=== PATIENT | male | born 1955 | race Caucasian/White ===

== ENCOUNTER → 2019-03-20 | Outpatient (CLI) | payer BC ==
[2019-03-20 11:22] LABS: HCT 45.7 % (39.0-53.0); MCH 30.5 pg (25.0-35.0); MCHC 32.9 g/dL (31.0-37.0); MCV 92.5 fL (80.0-100.0); Mean Platelet Volume 7.7; Platelet Count 240 k/uL (150-450); RBC 4.94 m/uL (4.30-5.90); RDW 15.1 % (11.5-15.5); WBC 5.8 k/uL (3.8-10.6)
[2019-03-20 11:27] LABS: INR 0.9 (<1.2); Partial Thromboplastin Time 26.4 sec (22.0-30.0); Prothrombin Time 10.2 sec (9.0-12.0)
[2019-03-20 16:32] LABS: Anion Gap 6.3 mmol/L (4.00-12.00); Carbon Dioxide 24.7 mmol/L (21.6-31.8); Potassium 4.4 mmol/L (3.5-5.5)
== END | disposition home or self-care (01) ==
LOC: LABWHC1 10:40
PROVIDERS: ATTEND Orthopaedic Surgery Hand Surgery
DX: Z01.812 Encounter for preprocedural laboratory examination (principal)
CPT/HCPCS: 36415; 80051; 82565; 84520; 85027; 85610; 85730; 87070

== ENCOUNTER → 2019-03-24 | Outpatient (CLI) | payer BC ==
[2019-03-24 09:30] LABS: Appearance,Urine Clear (Clear); Bilirubin,Urine Negative (Negative); Blood,Urine Negative (Negative); Color,Urine Yellow; Glucose,Urine (UA) Trace (Negative); Ketones,Urine Negative (Negative); Leukocyte Esterase,Urine Negative (Negative); Nitrite,Urine Negative (Negative); PH, Urine 5.5 (5.0-8.0); Protein,Urine Trace (Negative); Specific Gravity,Urine 1.025 (1.001-1.035); Urobilinogen,Urine <2.0 mg/dL (<2.0)
== END | disposition home or self-care (01) ==
LOC: LABPAT 08:54
PROVIDERS: ATTEND Orthopaedic Surgery
DX: Z01.812 Encounter for preprocedural laboratory examination (principal)
CPT/HCPCS: 36415; 81003; 86850; 86900; 86901

== ENCOUNTER 2019-04-03 07:00 | Inpatient (IN) | payer BC ==
[~2019-04-03 07:00] MED LIST: ACETAMINOPHEN TAB 500 MG TAB PO ONE; DEXAMETHASONE SOD PHOSPHATE 10 MG/ML 1 ML VIAL IV ONE; HYDROmorphone 0.5 MG/0.5 ML SYRINGE IVP PRN; MELOXICAM 7.5 MG TAB PO ONE; MIDAZOLAM 2 MG/2 ML VIAL IV PRN; ONDANSETRON 4 MG/2 ML VIAL IVP ONE; ROPIVACAINE 246.25 MG, EPINEPHrine 0.5 MG, KETOROLAC 30 MG, WATER FOR INJECTION,STERILE... MISCELLANE ONE; SCOPOLAMINE 1.5MG/72HR PATCH TRANSDERM ONE; TRANEXAMIC ACID 1,000 MG in SODIUM CHLORIDE 0.9% 100 ML IVPB ONE; ceFAZolin IN SWFI 2 GM/20 ML SYRINGE IVP ONE
[2019-04-03] MEDS ORDERED: MAGNESIUM HYDROXIDE 2,400 MG/10 ML CUP PO PRN (10:41)
[2019-04-03] MEDS ORDERED: HYDROcodone/APAP 5-325MG 1 EACH TAB PO PRN (10:41)
[2019-04-03] MEDS ORDERED: NALOXONE 0.4 MG/ML 1 ML VIAL IV PRN (10:41)
[2019-04-03] MEDS ORDERED: DIAZEPAM 5 MG TAB PO PRN (10:41)
[2019-04-03] MEDS ORDERED: HYDROmorphone 0.5 MG/0.5 ML SYRINGE IVP PRN ×2 (10:41)
[2019-04-03] MEDS ORDERED: HYDROmorphone 1 MG/ML 1 ML SYRINGE IVP PRN (10:41)
[2019-04-03] MEDS ORDERED: hydrOXYzine PAMOATE 25 MG CAP PO PRN (10:41)
[2019-04-03] MEDS ORDERED: ONDANSETRON 4 MG/2 ML VIAL IVP PRN (10:41)
[2019-04-03] MEDS ORDERED: LIDOCAINE 1% 20 ML VIAL (10MG/ML) FOR IV START INTRADERMA ONE (10:44)
[2019-04-03] MEDS: LACTATED RINGERS 1,000 ML IV SCH ×2 (10:44→11:53)
[2019-04-03] MEDS ORDERED: ceFAZolin 3,000 MG in SODIUM CHLORIDE 0.9% IRRIGATIO 3,000 ML IRRIGATION ONE (11:56)
[2019-04-03] MEDS ORDERED: LACTATED RINGERS 1,000 ML IV ONE (13:19)
--- NOTE | 2019-04-03 14:17 | XR ---
EXAMINATION TYPE: XR Hip Limited LT DATE OF EXAM: 04/03/2019 CLINICAL HISTORY: Left hip pain and osteoarthritis. TECHNIQUE: Single AP portable view of left hip is obtained immediately postoperatively. COMPARISON: None. FINDINGS: Metallic hardware from left hip arthroplasty is seen and appears satisfactory in alignment and position. There is evidence of recent surgery with subcutaneous gas and soft tissue swelling not ed laterally. IMPRESSION: Metallic hardware from left hip arthroplasty is satisfactory in position.
--- NOTE | 2019-04-03 14:17 | XR ---
Limited left hip HISTORY: Anterior hip replacement 2 intraoperative C-arm images document the procedure.
--- NOTE | 2019-04-03 14:18 | FL ---
EXAMINATION TYPE: FL guidance operating room DATE OF EXAM: 04/03/2019 CLINICAL HISTORY: Left hip arthroplasty TECHNIQUE: Fluoroscopy. COMPARISON: None. FINDINGS: Fluoroscopic guidance was provided during procedure performed by Dr. Olivia. A total of 50 to seconds of fluoroscopic time was utilized during the procedure and 0 spot images was acquired. IMPRESSION: As Above.
--- NOTE | 2019-04-03 16:20 | P.OP ---
Date of Procedure: 04/03/19 Preoperative Diagnosis: Severe osteoarthritis left hip Postoperative Diagnosis: Severe osteoarthritis left hip Procedure(s) Performed: Left total hip arthroplasty with a direct anterior approach Implants: Dahl and nephew Polarstem size 4 standard Dahl & Nephew R3, 3 hole acetabular shell, 52 mm Dahl & Nephew reflection 6.5 mm cancellus screw, 20 mm 2 Dahl & Nephew R3, XLPE 20 acetabular liner Dahl & Nephew Oxinium femoral head 36 m, +4 All components were press-fit. The articulation is Oxinium on polyethylene. Anesthesia: spinal Surgeon: Hu Olivia Snorkelling Instructor #1: Vannessa Soto Estimated Blood Loss (ml): 50 Pathology: other (Femoral head) Condition: stable Disposition: PACU Indications for Procedure: After failure of conservative treatment we discussed the surgical and nonsurgical treatment options at length. Patient wishes to proceed with a total hip arthroplasty with a direct anterior approach. Complications specific to this procedure were discussed at length, including but not limited to infection, leg length discrepancy, dislocation, and nerve injury. Patient is aware of all these complications and informed consent was obtained Operative Findings: The operative findings are consistent with severe osteoarthritis left hip Description of Procedure: Patient was seen and evaluated in the preoperative area, consent was reviewed, and the surgical site was marked with a skin marker. Patient was then brought to the operating room and given prophylactic antibiotics intravenously. 1 g of Tranexamic acid was also given. A spinal anesthetic was administered by the anesthesia department. The patient was then placed on the Frontier table with the bony prominences well-padded. The hip area was then prepped and draped in usual sterile fashion. A universal timeout was then performed, which confirmed the patient's name, surgical site, ALLERGIES, and procedure being performed. Next the incision site was located at 1 cm distal and 1 cm lateral to the anterior superior iliac spine. The skin and subcutaneous tissues were sharply incised. Incision was carefully dissected down to the fascia overlying the tensor fascia jessica muscle. This fascia was then incised in line with the incision. Next, using blunt finger dissection, the tensor fascia jessica muscle was dissected off its investing fascia. The muscle was then carefully retracted laterally with a cobra retractor over the lateral neck of the femur. Next, the circumflex vessels were identified and cauterized using the AquaMantis device. The anterior hip capsule was then exposed. The capsule was then opened and an inverted T fashion. Cobra retractors were then placed intracapsularly. The proximal femur was then visualized. The femoral neck was then osteotomized appropriate level above the lesser trochanter. Small amount of traction was placed with the Frontier table. A small wedge of bone was then removed from the remaining femoral head. Next, using a corkscrew femoral head was easily removed from the acetabulum. On gross visual inspection, the femoral head had complete loss of articular cartilage in multiple periarticular osteophytes. Attention was then turned to the acetabulum. the acetabulum was exposed and any remaining labrum was excised. Sequential reaming of the acetabulum was performed using fluoroscopic guidance. When the appropriate size was reached, a trial was then placed. The position and fit of the trial was checked with fluoroscopy. The trial was then removed. Then, using fluoroscopic guidance, the final implant was impacted at 20 of anteversion and 40 of abduction, and fully seated in the acetabulum. 2 screws were then placed in the acetabulum. Again fluoroscopy was used to check position of the screws. Next, the liner was then impacted, with a 20 elevated liner located in the anterior superior quadrant. Component locking was confirmed. Attention was then directed to the femur. With the aid of the Frontier table, the femur was externally rotated to approximately 130, extended, and abducted under the opposite leg. A side hook was then placed under the proximal femur, and the side hook elevator was used to elevate the proximal femur. Retractors were then placed. A capsular release was performed, as well as a release of the conjoined tendon, which afforded excellent visualization of the proximal femur. Next, a box osteotome was used to lateralize the proximal femur. A hazard waste handler was then used to locate the femoral canal. Sequential broaching was then performed with appropriate size which afforded excellent fixation in the proximal femur. A trial was then placed with appropriate head and neck, and the hip was gently reduced with the aid of the Frontier table. Fluoroscopy was then used to check position of the components, as well as to ensure equal leg lengths. The hip was then gently dislocated and the trials were then removed. Final implants were then impacted and the hip was again reduced. Final fluoroscopic x-rays confirmed that the components were in anatomic position, as well as equal leg lengths. The hip was also taken through range of motion, and found to be stable. The hip was then copiously irrigated with antibiotic solution with pulsatile lavage. The hip was then irrigated with Irrisept solution. The soft tissues were then injected with a ropivacaine solution, which consisted of 246.25 mg of ropivacaine, 0.5 mg of epinephrine, 30 mg of Toradol, 80 g of clonidine, and 48.45 mL of sterile water, for a total of 100 mL of fluid injected. A second dose of 1 g of Tranexamic acid was also given. the fascia was then closed with 2-0 strata fix suture. The subcutaneous tissue was closed with 3-0 Vicryl. The subcuticular tissue was closed with 3-0 strata fix suture. The skin was then closed with Dermabond glue and a sterile silver dressing. The patient was then transferred to the recovery room in stable condition. The research assistant professor CHER Carr was required due to the complexity of surgery, and the need for skilled surgical instrument mechanic for positioning, draping, exposure, retraction, and closure of the wound.
[2019-04-03 17:10] VITALS: BMI 35.2
[2019-04-03] MEDS: SODIUM CHLORIDE 0.9% 1,000 ML IV SCH (17:59)
[2019-04-03] MEDS ORDERED: SENNOSIDES-DOCUSATE SODIUM 1 EACH TAB PO SCH (21:00)
[2019-04-03] MEDS: HYDROcodone/APAP 5-325MG 1 EACH TAB PO PRN (22:17)
[2019-04-03] MEDS: ceFAZolin IN SWFI 2 GM/20 ML SYRINGE IVP SCH (23:18)
[2019-04-03] MEDS: ASPIRIN 325 MG TAB PO SCH (23:18)
[2019-04-04] MEDS: SODIUM CHLORIDE 0.9% 1,000 ML IV SCH (02:00)
[2019-04-04 02:02] VITALS: RESP 18
[2019-04-04] MEDS: ceFAZolin IN SWFI 2 GM/20 ML SYRINGE IVP SCH (05:18)
[2019-04-04] MEDS: HYDROcodone/APAP 5-325MG 1 EACH TAB PO PRN (05:18)
[2019-04-04 07:09] LABS: Basophils % (A) 0 %; Eosinophils # (A) 0.1 k/uL (0-0.7); Eosinophils % (A) 1 %; HCT 41.1 % (39.0-53.0); HGB 13.3 gm/dL (13.0-17.5); Lymphocytes # (A) 1.1 k/uL (1.0-4.8); Lymphocytes % (A) 13 %; MCH 29.9 pg (25.0-35.0); MCHC 32.3 g/dL (31.0-37.0); MCV 92.5 fL (80.0-100.0); Mean Platelet Volume 7.6; Monocytes # (A) 0.7 k/uL (0-1.0); Monocytes % (A) 9 %; Neutrophils # (A) 6.4 k/uL (1.3-7.7); Neutrophils % (A) 77 %; Platelet Count 197 k/uL (150-450); RBC 4.44 m/uL (4.30-5.90); RDW 15.1 % (11.5-15.5); WBC 8.4 k/uL (3.8-10.6)
[2019-04-04] MEDS ORDERED: PANTOPRAZOLE 40 MG TABLET PO SCH (07:30)
[2019-04-04] MEDS: LACTATED RINGERS 1,000 ML IV SCH (07:36)
[2019-04-04] MEDS: ASPIRIN 325 MG TAB PO SCH (07:46)
--- NOTE | 2019-04-04 07:48 | CONS ---
CONSULTATION DATE OF SERVICE: 04/03/2019 REASON FOR CONSULTATION: Advice regarding hyperlipidemia and other medical issues requested by Dr. Olivia. HISTORY OF PRESENT ILLNESS: This 63-year-old gentleman with the past medical history of hyperlipidemia, history of DJD, history varicose veins, anxiety being followed by Dr. Richter in the outpatient setting underwent left total hip arthroplasty by Dr. Olivia. The patient tolerated the procedure well and there is no history of chest pain, history of palpitation, headache, loss of consciousness, seizures. No history of diarrhea, fever, rigors, chills at this time. PAST MEDICAL HISTORY: History of DJD, history of hyperlipidemia, history of varicose veins, history of anxiety. MEDICATIONS: Home medications are: 1. Pravastatin 40 mg q.h.s. 2. Multivitamins one p.o. daily. ALLERGIES: Allergies are none. FAMILY HISTORY: History of cancer in the family. SOCIAL HISTORY: No history of smoking. No history of alcohol intake. REVIEW OF SYSTEMS: ENT: No diminished hearing or diminished vision. CARDIOVASCULAR SYSTEM: No angina or palpitations. RESPIRATORY SYSTEM: As mentioned earlier. GI: No nausea. : No dysuria. NERVOUS SYSTEM: No numbness or weakness. ALLERGY/IMMUNOLOGY: No history of asthma or hayfever. MUSCULOSKELETAL: As mentioned earlier. HEMATOLOGY/ONCOLOGY: No history of anemia. ENDOCRINE: No history of diabetes or hypothyroidism. CONSTITUTIONAL: As mentioned earlier. DERMATOLOGY: Negative. RHEUMATOLOGY: Negative. PSYCHIATRY: As mentioned earlier. PHYSICAL EXAMINATION: The patient is alert and oriented x3. Pulse is 66, blood pressure 112/70, respiration 20, temperature is 97.2, pulse ox 98% on room air. HEENT: Conjunctivae normal. Oral mucosa moist. NECK: No jugular venous distention. No carotid bruit. No lymph node enlargement. CARDIOVASCULAR: S1, S2 muffled. No S3, no S4. RESPIRATORY: Breath sounds diminished at the bases. No rhonchi, no crackles. ABDOMEN: Soft, nontender. No mass palpable. LEGS: Status post surgery. NERVOUS SYSTEM: Higher functions as mentioned earlier. Moves all 4 limbs. No focal deficits. LYMPHATICS: No lymphadenopathy of the neck, axillae or groin. SKIN: No ulcer, rash or bleeding. JOINTS: No active deforming arthropathy. LABS: Labs are preop labs CBC within normal limits. Creatinine was 1.6. Otherwise normal. UA noted. ASSESSMENT: 1. Status post left total hip joint arthroplasty. 2. Possible chronic kidney disease stage 3, previously. 3. Hyperlipidemia. 4. Degenerative joint disease. 5. Varicose veins. 6. History of motion sickness. 7. History of anxiety. RECOMMENDATIONS AND DISCUSSION: In this 63-year-old gentleman who presented after surgery the patient is medically stable. I would recommend followup labs CBC and BMP in the morning to ensure stability. Otherwise, DVT prophylaxis. Recommended incentive spirometry. We will follow the patient closely with you. The patient may be asked to follow with primary physician closely. Thank you Dr. Olivia for letting us participate in the care of this patient. MMODL / IJN: [id number] /
[2019-04-04 08:18] VITALS: BP 123/79; PULSE 89; TEMP 98.5
[2019-04-04] MEDS ORDERED: MULTIVITAMINS, THERA 1 EACH TAB PO SCH (09:00)
[2019-04-04] MEDS ORDERED: MELOXICAM 7.5 MG TAB PO SCH (09:00)
--- NOTE | 2019-04-04 09:22 | P.DS ---
Providers Date of admission: 04/03/19 10:06 Expected date of discharge: 04/04/19 Attending physician: Hu Olivia Consults: 04/03/19 10:41 Consult Physician Routine Consulting Provider: Glenn Lim Consult Reason/Comments: medical management Do you want consulting provider notified?: Yes Primary care physician: Tito Richter - Discharge Diagnosis(es) (1) Osteoarthritis of left hip Current Visit: Yes Status: Acute (2) Status post total hip replacement, left Current Visit: Yes Status: Acute Hospital Course: This is a 63-year-old male with known history of degenerative arthritis of the left hip. The patient presents for evaluation. After discussion and consideration patient elects to proceed with total hip arthroplasty. The patient is seen preoperatively by Dr. Olivia and medically cleared for surgery by their primary care physician. Patient is admitted to [facility] on 04/03/2019 for total hip arthroplasty. The procedures performed without complication or sequelae. The patient is doing well postoperatively. Labs and vital signs are stable on day of discharge. On day of discharge patient's hip incision is healing well. There is minimal erythema. There is no drainage noted at this time. There is minimal soft tissue swelling to the hip and thigh. Patient has full foot and ankle motion without difficulty or pain. Calf is soft and nontender to palpation. Luis Fernando rovascular status to the left lower extremity is intact. Patient is discharged home in good condition. Opioid start talking form is reviewed and signed at patient bedside. Please see med rec for accurate list of home medications. Plan - Discharge Summary Discharge Rx Participant: Yes New Discharge Prescriptions: New Aspirin 325 mg PO BID #60 tab HYDROcodone/APAP 5-325MG [[place] 5-325] 1 - 2 tab PO Q6HR PRN #56 tab PRN Reason: Pain Sennosides [Senokot] 1 tab PO BID #60 tablet No Action Pravastatin Sodium [Pravachol] 40 mg PO HS Multivitamin [Multivitamins Adult Gummies] 1 tab PO DAILY Discharge Medication List Multivitamin [Multivitamins Adult Gummies] 1 tab PO DAILY 03/29/19 [History] Pravastatin Sodium [Pravachol] 40 mg PO HS 03/29/19 [History] Aspirin 325 mg PO BID #60 tab 04/04/19 [Rx] HYDROcodone/APAP 5-325MG [[place] 5-325] 1 - 2 tab PO Q6HR PRN #56 tab 04/04/19 [Rx] Sennosides [Senokot] 1 tab PO BID #60 tablet 04/04/19 [Rx] Follow up Appointment(s)/Referral(s): Hu Olivia DO [Doctor of Osteopathic Medicine] - 2 Weeks Activity/Diet/Wound Care/Special Instructions: Weightbearing as tolerated with walker. Leave dressing intact. Dressing may be removed by home care nurse or by patient in 10 days. May shower with dressing on. Please follow-up with [facility] in 2 weeks and call with any questions or concerns, . Discharge Disposition: HOME WITH HOME HEALTH SERVICES
[2019-04-04] MEDS ORDERED: PRAVASTATIN SODIUM 40 MG TAB PO SCH (21:00)
== END 2019-04-04 10:41 | disposition home or self-care (01) | DRG 470 ==
LOC: 2ORMAIN 10:06 → 4SSUR 14:20
PROVIDERS: ADMIT Orthopaedic Surgery; ATTEND Orthopaedic Surgery
PROC: 0SRB06A Replacement of Left Hip Joint with Oxidized Zirconium on Polyethylene Synthetic Substitute, Uncemented, Open Approach (ICD-10-PCS; principal; 2019-04-03 11:40)
DX: M16.12 Unilateral primary osteoarthritis, left hip (principal); E78.5 Hyperlipidemia, unspecified; F41.9 Anxiety disorder, unspecified; N18.3 Chronic kidney disease, stage 3 (moderate); I83.90 Asymptomatic varicose veins of unspecified lower extremity; Z80.9 Family history of malignant neoplasm, unspecified
CPT/HCPCS: 36415; 73501; 85025; 86850; 86900; 86901; 88300

== ENCOUNTER → 2020-08-29 | Outpatient (CLI) | payer BC | END | disposition home or self-care (01) | LOC: LABWHC1 12:31 | PROVIDERS: ATTEND Family Medicine | DX: Z20.828 Contact with and (suspected) exposure to other viral communicable diseases (principal) | CPT/HCPCS: U0003; C9803 ==

== ENCOUNTER → 2022-07-02 | Outpatient (CLI) | payer BC ==
[2022-07-02 15:28] LABS: Partial Thromboplastin Time 26.3 sec (22.0-30.0); Prothrombin Time 10.7 sec (9.0-12.0)
[2022-07-02 22:39] LABS: HCT 47.1 % (39.6-50.0); HGB 15.3 g/dL (13.0-17.0); MCH 30.6 pg (27.0-32.0); MCHC 32.5 g/dL (32.0-37.0); MCV 94.2 fL (80.0-97.0); NRBC Per 100 WBC 0 /100 WBCS (0.0-0.0); Platelet Count 259 X 10*3/uL (140-440); RDW 14.4 % (11.5-14.5); WBC 7.87 X 10*3/uL (4.50-10.00)
[2022-07-02 23:30] LABS: Appearance,Urine Turbid (Clear); Bilirubin,Urine Negative (Negative); Blood,Urine Negative (Negative); Color,Urine Yellow (Yellow); Ketones,Urine Negative (Negative); Nitrite,Urine Negative (Negative); Specific Gravity,Urine 1.022 (1.001-1.030); Urobilinogen,Urine 0.2 (0.2,1.0)
[2022-07-02 23:33] LABS: Bacteria,Urine None Seen /HPF (None Seen)
[2022-07-02 23:50] LABS: African American GFR (CKD) 54.5 (60.0-200.0); Albumin 4.8 g/dL (3.8-4.9); Albumin/Globulin Ratio 1.74 (1.60-3.17); Anion Gap 12.2 mmol/L (10.00-18.00); BUN/Creat Ratio 14.64 Ratio (12.00-20.00); Blood Urea Nitrogen 22.4 mg/dL (9.0-27.0); Calcium 9.8 mg/dL (8.7-10.3); Carbon Dioxide 23.7 mmol/L (20.0-27.5); Globulin 2.8 g/dL (1.6-3.3); Potassium 4.2 mmol/L (3.5-5.5); Total Bilirubin 0.5 mg/dL (0.30-1.20); Total Protein 7.5 g/dL (6.2-8.2)
== END | disposition home or self-care (01) ==
LOC: LABPAT 14:04
PROVIDERS: ATTEND Orthopaedic Surgery
DX: Z01.812 Encounter for preprocedural laboratory examination (principal); M16.11 Unilateral primary osteoarthritis, right hip
CPT/HCPCS: 80053; 81001; 85027; 85610; 85730; 87070; 93005

== ENCOUNTER 2022-07-06 08:06 | Day surgery (SDC) | payer BC ==
[2022-07-02 14:43] VITALS: BMI 33.0
[~2022-07-06 08:06] MED LIST changes: -ACETAMINOPHEN TAB 500 MG TAB PO ONE; +ACETAMINOPHEN TAB 500 MG TAB PO PRN; -DEXAMETHASONE SOD PHOSPHATE 10 MG/ML 1 ML VIAL IV ONE; +GABAPENTIN 300 MG CAP PO PRN; +LIDOCAINE 1% (10MG/ML) FOR IV START INTRADERMA PRN; -MELOXICAM 7.5 MG TAB PO ONE; +MELOXICAM 7.5 MG TAB PO PRN; -MIDAZOLAM 2 MG/2 ML VIAL IV PRN; -ROPIVACAINE 246.25 MG, EPINEPHrine 0.5 MG, KETOROLAC 30 MG, WATER FOR INJECTION,STERILE... MISCELLANE ONE; -SCOPOLAMINE 1.5MG/72HR PATCH TRANSDERM ONE; -TRANEXAMIC ACID 1,000 MG in SODIUM CHLORIDE 0.9% 100 ML IVPB ONE; +TRANEXAMIC ACID IN NACL,ISO-OS 1,000 MG in SALINE 1 100ML.BAG IVPB PRN; -ceFAZolin IN SWFI 2 GM/20 ML SYRINGE IVP ONE
[2022-07-06 08:38] LABS: Glucose,Whole Blood 122 mg/dL (70-110)
[2022-07-06] MEDS: LACTATED RINGERS 1,000 ML IV SCH (08:38)
[2022-07-06] MEDS ORDERED: DEXAMETHASONE SOD PHOSPHATE 4 MG/ML 1 ML VIAL IVP ONE (08:42)
[2022-07-06] MEDS ORDERED: TRANEXAMIC ACID IN NACL,ISO-OS 1,000 MG/100 ML BAG ONE (09:04)
[2022-07-06] MEDS ORDERED: PROPOFOL 10 MG/ML 20 ML VIAL IV ONE (09:04)
[2022-07-06] MEDS ORDERED: MIDAZOLAM 2 MG/2 ML VIAL ONE (09:04)
[2022-07-06] MEDS ORDERED: fentaNYL (PF) 50 MCG/ML 2 ML AMP ONE (09:04)
[2022-07-06] MEDS ORDERED: ROPIVACAINE 5 MG/ML 30 ML VIAL MISCELLANE ONE ×2 (10:04→10:19)
--- NOTE | 2022-07-06 10:26 | P.OP ---
Date of Procedure: 07/06/22 Preoperative Diagnosis: Severe osteoarthritis right hip Postoperative Diagnosis: Severe osteoarthritis right hip Procedure(s) Performed: Right total hip arthroplasty with a direct anterior approach Implants: Dahl & Nephew Polarstem standard size 4 Dahl & Nephew R3, 3 hole hemispherical acetabular shell, 54 mm Dahl & Nephew Reflection 6.5 mm cancellus screw, 20 mm 2 Dahl & Nephew R3, XLPE 20 acetabular liner Dahl & Nephew Oxinium femoral head 36 m, +0 All components were press-fit. The articulation is Oxinium on polyethylene. Anesthesia: spinal Surgeon: Hu Olivia Customer Specialist #1: Vannessa Soto Estimated Blood Loss (ml): 350 Pathology: other (Femoral head) Condition: stable Disposition: PACU Indications for Procedure: After failure of conservative treatment we discussed the surgical and nonsurgic al treatment options at length. Patient wishes to proceed with a total hip arthroplasty with a direct anterior approach. Complications specific to this procedure were discussed at length, including but not limited to infection, leg length discrepancy, dislocation, nerve injury, and fracture. Covid-19 was also discussed at length with the patient, and they are aware of the current policies and procedures. The patient was given the option of delaying surgery, but they elect to proceed knowing these risks. Patient is aware of all these complications and informed consent was obtained Operative Findings: The operative findings are consistent with severe osteoarthritis of the right hip Description of Procedure: Patient was seen and evaluated in the preoperative area and the consent was reviewed. The operative site was marked with a skin marker. The patient was then brought to the operating room and given preoperative antibiotics intravenously. 1 g of Tranexamic acid was also given intravenously. A spinal anesthetic was administered by the anesthesia department. The patient was then placed on the Thompson table with the bony prominences well-padded. The hip area was then prepped with a ChloraPrep solution and draped in the usual sterile fashion. A universal timeout was then performed, which confirmed the patient's name, surgical site, ALLERGIES, and procedure being performed on the consent. Next the incision site was located at 1 cm distal and 2 cm lateral to the anterior superior iliac spine. The skin and subcutaneous tissues were sharply incised. Incision was carefully dissected down to the fascia overlying the tensor fascia jessica muscle. This fascia was then incised in line with the incision. Care was taken to stay laterally in order to avoid injuring the lateral femoral cutaneous nerve. Next, using blunt finger dissection, the tensor fascia jessica muscle was dissected off its investing fascia. The muscle was then carefully retracted laterally with a cobra retractor over the lateral neck of the femur. Next, the circumflex vessels were identified and cauterized using the AquaMantis device. The anterior hip capsule was then exposed. The capsule was then opened and an inverted T fashion. Cobra retractors were then placed intracapsularly. The retractors were maintained intracapsular throughout the procedure. The proximal femur was then visualized. Fluoroscopic x-rays were then taken in order to evaluate the preoperative leg lengths. A small amount of traction was placed on the leg. The femoral neck was then osteotomized at the appropriate level above the lesser trochanter. A small wedge of bone was then removed from the remaining femoral head. Next, using a corkscrew the femoral head was removed from the acetabulum. On gross visual inspection, the femoral head had complete loss of articular cartilage and multiple periarticular osteophytes. The femoral head was then measured. Attention was then turned to the acetabulum. The acetabulum was exposed and any remaining labrum was excised. Sequential reaming of the acetabulum was performed using fluoroscopic guidance until there was a good bed of bleeding cancellus bone. When the appropriate size was reached, a trial was then placed. The position and fit of the trial was checked with fluoroscopy. The trial was then removed. Then, using fluoroscopic guidance, the final implant was impacted at 20 of anteversion and 40 of abduction, and fully seated in the acetabulum. 2 screws were then placed in the acetabulum. Again fluoroscopy was used to check position of the screws. Next, the liner was then impacted, with a 20 elevated liner located in the anterior superior quadrant. Component locking was confirmed. Attention was then directed to the femur. With the aid of the Thompson table, the femur was externally rotated to approximately 130, extended, and adducted under the opposite leg. A side hook was then placed under the proximal femur, and the side hook elevator was used to elevate the proximal femur while releasing the capsule. Retractors were then placed. A capsular release was performed, as well as a release of the conjoined tendon, which afforded excellent visualization of the proximal femur. Next, a box osteotome was used to lateralize the proximal femur. A hand printed circuit board assembler was then used to locate the femoral canal. Sequential broaching was then performed with appropriate size which afforded excellent fixation in the proximal femur. A trial was then placed with appropriate head and neck, and the hip was gently reduced with the aid of the Thompson table. Fluoroscopy was then used to check position of the components, as well as to ensure equal leg lengths. The hip was then gently di slocated and the trials were then removed. Final implants were then impacted and the hip was again reduced. Final fluoroscopic x-rays confirmed that the components were in anatomic position, as well as equal leg lengths. The hip was also taken through range of motion, and found to be stable. The hip was then copiously irrigated with antibiotic solution with pulsatile lavage. The hip was then irrigated with Irrisept solution. The soft tissues were then injected with a ropivacaine solution. A second dose of 1 g of Tranexamic acid was also given intravenously. The fascia was then closed with 2-0 strata fix suture. The subcutaneous tissue was closed with 3-0 Vicryl. The subcuticular tissue was closed with 3-0 strata fix suture. The skin was then closed with Exofin skin glue. After the glue and dried, and Optifoam silver impregnated dressing was applied. The patient was then transferred to the recovery room in stable condition. The cardiology physician assistant CHER Carr was required due to the complexity of surgery, and the need for skilled surgical appliances salesperson for positioning, draping, exposure, retraction, and closure of the wound.
[2022-07-06] MEDS ORDERED: LACTATED RINGERS 1,000 ML IV ONE (10:34)
--- NOTE | 2022-07-06 10:56 | FL ---
EXAMINATION TYPE: FL guidance operating room, XR Hip Limited RT DATE OF EXAM: 07/06/2022 CLINICAL HISTORY: Right hip pain and osteoarthritis. TECHNIQUE: Fluoroscopy. Limited intraoperative views right hip. COMPARISON: None. FINDINGS: Fluoroscopic guidance was provided during right hip replacement procedure performed by Dr. Olivia. A total of 23 seconds of fluoroscopic time was utilized during the procedure and 3 spot i mages was acquired. Intraoperative images acquired show metallic hardware from total right hip arthroplasty satisfactory in projection on intraoperative frontal view. IMPRESSION: As Above.
[2022-07-06] MEDS ORDERED: NALOXONE 0.4 MG/ML 1 ML VIAL IV PRN (11:11)
[2022-07-06] MEDS ORDERED: HYDROmorphone 0.5 MG/0.5 ML SYRINGE IVP PRN ×4 (11:11→19:21)
[2022-07-06] MEDS ORDERED: MAGNESIUM HYDROXIDE 2,400 MG/10 ML CUP PO PRN (11:11)
[2022-07-06] MEDS ORDERED: ONDANSETRON 4 MG/2 ML VIAL IVP PRN ×2 (11:11→19:22)
[2022-07-06] MEDS ORDERED: HYDROcodone/APAP 7.5-325MG 1 EACH TAB PO PRN ×2 (11:15)
--- NOTE | 2022-07-06 12:21 | XR ---
EXAMINATION TYPE: XR Hip Limited RT DATE OF EXAM: 07/06/2022 CLINICAL HISTORY: Right hip pain and osteoarthritis. TECHNIQUE: Single AP portable view of right hip is obtained immediately postoperatively. COMPARISON: None. FINDINGS: Metallic hardware from right hip arthroplasty is seen and appears satisfactory in alignment and position. There is evidence of recent surgery with subcutaneous gas noted extending laterally. IMPRESSION: Metallic hardware from right hip arthroplasty is satisfactory in position.
[2022-07-06] MEDS ORDERED: HYDROmorphone 1 MG/ML 1 ML SYRINGE IVP PRN (19:22)
[2022-07-06] MEDS ORDERED: SENNOSIDES-DOCUSATE SODIUM 1 EACH TAB PO SCH (21:00)
[2022-07-06] MEDS: SODIUM CHLORIDE 0.9% 1,000 ML IV SCH (22:01)
[2022-07-06 22:21] VITALS: RESP 18
[2022-07-06] MEDS: ASPIRIN 325 MG TAB PO SCH (22:40)
[2022-07-07] MEDS: SODIUM CHLORIDE 0.9% 1,000 ML IV SCH (00:12)
--- NOTE | 2022-07-07 00:20 | P.CONS ---
History of Present Illness - Reason for Consult Consult date: 07/06/22 post op medical management Requesting physician: Hu Olivia - Chief Complaint scheduled right hip replacement - History of Present Illness 66 year old male with hyperlipidemia , OA patient is in for scheduled right total hip arthroplasty for severe OA , tolerated procedure well, no observed immediate post op complications patient denies any SOB , chest pain, dizziness, plapitations, nausea vomiting, he tolerated PO intake , he walked with assistance post op and he is passing urine Review of Systems v Pertinent positives as noted in HPI. All other systems were reviewed and are negative Past Medical History Past Medical History: Hyperlipidemia, Osteoarthritis (OA) Additional Past Medical History / Comment(s): heart murmur-had ECHO done on 07-02-22 at [facility]),steroid injections nisreen shoulders May 2022,hx varicose veins History of Any Multi-Drug Resistant Organisms: None Reported Past Surgical History: Joint Replacement Additional Past Surgical History / Comment(s): total left ant hip Past Anesthesia/Blood Transfusion Reactions: Motion Sickness Additional Past Anesthesia/Blood Transfusion Reaction / Comm: no hx blood transfusion Smoking Status: Never smoker - Past Family History Mother Family Medical History: Cancer Additional Family Medical History / Comment(s): with breast cancer Father Family Medical History: Myocardial Infarction (AR) Additional Family Medical History / Comment(s): dad passed at 78 with AR Medications and Allergies Home Medications Medication Instructions Recorded Confirmed Type Multivitamin [Multivitamins Adult 1 tab PO DAILY 03/29/19 07/02/22 History Gummies] Pravastatin Sodium [Pravachol] 40 mg PO HS 03/29/19 07/02/22 History Alg Nasal [place] 1 spray EA NOSTRIL HS 07/02/22 07/02/22 History Ibuprofen 800 mg PO TID PRN 07/02/22 07/02/22 History Aspirin 325 mg PO BID #60 tab 07/06/22 Rx HYDROcodone/APAP 7.5-325MG [[place] 1 - 2 tab PO Q6H PRN #32 tab 07/06/22 Rx 7.5-325] Sennosides [Senokot] 2 tab PO DAILY PRN #60 tablet 07/06/22 Rx Allergies Allergy/AdvReac Type Severity Reaction Status Date / Time No Known Allergies Allergy Verified 07/06/22 08:26 Physical Exam Vitals: Vital Signs Temp Pulse Pulse Resp BP BP Pulse Ox 07/06/22 12:24 49 L 16 119/79 97 07/06/22 11:57 48 L 16 122/68 97 07/06/22 11:27 62 16 101/71 97 07/06/22 11:12 53 L 16 114/75 97 07/06/22 10:57 65 16 107/70 96 07/06/22 10:42 96.9 F L 76 16 100/69 96 07/06/22 08:43 71 20 155/81 95 07/06/22 08:27 71 20 155/81 95 Intake and Output 07/06/22 07/06/22 07/06/22 06:59 14:59 22:59 Intake Total 1050 Output Total 350 Balance 700 Intake: IV 1050 Output: Estimated Blood Loss 350 Other: Weight 109.4 kg Constitutional: No acute distress, conversant, pleasant Eyes: Anicteric sclerae, moist conjunctiva, Pupils equal round reactive to light ENMT: NC/AT Oropharynx clear, no erythema, or exudates Neck: Supple, no masses, or JVD No carotid bruits No thyromegaly Lungs: Clear to auscultation Clear to percussion Normal respiratory effort, no accessory muscle use Cardiovascular: Heart regular in rate and rhythm, No murmurs, gallops, or rubs No peripheral edema Abdominal: Soft Nontender, no guarding, rebound or rigidity Abdomen moving with respiration Normoactive bowel sounds No hepatomegaly, No splenomegaly No palpable mass No abdominal wall hernia noted Skin: Normal temperature, tone, texture, turgor No induration No subcutaneous nodules No rash, lesions No ulcers Extremities: No digital cyanosis No clubbing Pedal pulses intact and symmetrical Radial pulses intact and symmetrical No calf tenderness Psychiatric: Alert and oriented to person, place and time Appropriate affect fair judgement Neuro Muscles Strength 5/5 in all 4 extremities with limited exam over ri ght lower extremity due to postoperative Sensation to light touch grossly present throughout Cranial nerves II-XII grossly intact No focal sensory deficits Lymphatics: no palpable cervical or supraclavicular , or inguinal lymph nodes Results Labs: Abnormal Lab Results - Last 24 Hours (Table) 07/06/22 Range/Units 08:33 POC Glucose (mg/dL) 122 H (70-110) mg/dL Assessment and Plan Assessment: Severe right hip arthritis status post right total hip arthroplasty postoperative day 0 Pain management and DVT prophylaxis per orthopedic team Hyperlipidemia Resume statin Patient stable from medical standpoint Check CBC and CMP in the morning full code Thank you for allowing us to participate in the care of this patient. We will follow peripherally. Do not hesitate to contact us with questions. Someone can be reached from the [facility] hospitalist group at all hours of the day at [phone].
[2022-07-07] MEDS: LACTATED RINGERS 1,000 ML IV SCH (04:48)
[2022-07-07 07:29] VITALS: BP 126/71; PULSE 67; TEMP 98.2
[2022-07-07] MEDS: ASPIRIN 325 MG TAB PO SCH (08:01)
[2022-07-07 10:32] LABS: Basophils # (A) 0.01 X 10*3/uL (0.00-0.10); Basophils % (A) 0.1 %; Eosinophils # (A) 0 X 10*3/uL (0.04-0.35); Eosinophils % (A) 0 %; HCT 42.2 % (39.6-50.0); HGB 13.9 g/dL (13.0-17.0); Immature Grans, Automated 0.6 %; Lymphocytes # (A) 1.94 X 10*3/uL (0.90-5.00); Lymphocytes % (A) 14.4 %; MCH 31.2 pg (27.0-32.0); MCHC 32.9 g/dL (32.0-37.0); MCV 94.6 fL (80.0-97.0); Mean Platelet Volume 10.8 fL (9.5-12.2); Monocytes % (A) 11.1 %; NRBC Per 100 WBC 0 /100 WBCS (0.0-0.0); Neutrophils # (A) 9.93 X 10*3/uL (1.80-7.70); Neutrophils % (A) 73.8 %; Platelet Count 230 X 10*3/uL (140-440); RBC 4.46 X 10*6/uL (4.40-5.60); RDW 14.1 % (11.5-14.5); WBC 13.46 X 10*3/uL (4.50-10.00)
[2022-07-07 11:08] LABS: African American GFR (CKD) 49.4 (60.0-200.0); Albumin 4.3 g/dL (3.8-4.9); Albumin/Globulin Ratio 1.7 (1.60-3.17); Anion Gap 12.9 mmol/L (10.00-18.00); BUN/Creat Ratio 13.37 Ratio (12.00-20.00); Blood Urea Nitrogen 22.2 mg/dL (9.0-27.0); Calcium 9.2 mg/dL (8.7-10.3); Carbon Dioxide 24.7 mmol/L (20.0-27.5); Globulin 2.5 g/dL (1.6-3.3); Non-African American GFR(CKD) 42.6 (60.0-200.0); Potassium 4.3 mmol/L (3.5-5.5); Total Bilirubin 0.3 mg/dL (0.30-1.20); Total Protein 6.8 g/dL (6.2-8.2)
--- NOTE | 2022-07-07 11:23 | P.PN ---
Subjective Progress Note Date: 07/07/22 Hospital course: Patient is a very pleasant 66-year-old male with a past medical historyof hyperlipidemia and osteoarthritis. Patient is currently admitted under orthopedic surgery team status post right total hip arthroplasty completed on 07/06/22. We have been consulted for medical management throughout hospitalization. Physical exam: Patient seen and fully evaluated at bedside this morning. Patient appears to be doing well. Patient has been ambulating in room with walker. He reports slight numbness to right lateral region of thigh accompanied by a mild burning/pain sensation otherwise reports all postoperative pain is controlled. he denies having any postoperative urinary retention and denies having any postoperative nausea or vomiting. Morning labs reviewed. CBC revealing mild leukocytosis with WBC count of 13.46, likely reactive. BMP revealing slightly elevated renal function with BUN of 22.4, creatinine 1.7, and GFR 42.6. elevated creatinine appears to be chronic with previous labs 03/20/19 revealing creatinine 1.6 and 07/02/22 revealing creatinine of 1.5. Recommend outpatient BMP to be completed in 3 days to follow-up on renal function with results to be sent to PCP for long- term monitoring and management. Patient otherwise stable for discharge home. Vital signs reviewed and stable. General: Nontoxic, no distress and appears stated age. Derm: Skin warm and dry, normal coloration for ethnicity. Head: Atraumatic, normocephalic and symmetric. Eyes: EOMs intact, no lid lag, and anicteric sclera Mouth: no lip lesions, mucus membranes moist Cardiovascular: regular rate and rhythm with normal S1S2, no murmur, positive posterior tibial pulses bilaterally, and cap refill < 2 seconds. Lungs: Respirations even, regular, and unlabored on room air. Lungs CTA bilaterally, no rhonchi, no rales, no wheezing, and no accessory muscle usage. Abdominal: soft, nontender to palpation, no guarding, no appreciable organomegaly Ext: ROM intact. No gross muscle atrophy, no edema, no contractures Neuro: Speech clear, face symmetrical and CN II-XII grossly intact with no noted focal neuro deficits Psych: Alert and oriented to person, place, time, and situation. Appropriate and pleasant affect. Assessment and Plan of Care: Status post right total hip arthroplasty secondary to severe osteoarthritis -Management per primary admitting orthopedic surgery team including DVT prophylaxis, pain management, weightbearing, and PT/OT. -currently DVT prophylaxis with aspirin. Hyperlipidemia -Continue daily medication regimen with pravastatin. Elevated renal function -BMP revealing slightly elevated renal function with BUN of 22.4, creatinine 1. 7, and GFR 42.6. -Elevated creatinine appears to be chronic with previous labs 03/20/19 revealing creatinine 1.6 and 07/02/22 revealing creatinine of 1.5. Recommend outpatient BMP to be completed in 3 days to follow-up on renal function with results to be sent to PCP for long-term monitoring and management. Thank you for allowing us to participate in the care of this pleasant patient. Do not hesitate to contact us with questions. Someone can be reached from the [facility] hospitalist group all hours of the day at [phone] or via Palm. I reviewed the documentation as provided by the MARY above, who is the original author of this note. I agree with the documented assessment and plan, with the following changes: none Objective - Vital Signs Vital signs: Vital Signs Temp 98.2 F 07/07/22 07:28 Pulse 67 07/07/22 07:28 Resp 18 07/07/22 07:28 BP 126/71 07/07/22 07:28 Pulse Ox 93 L 07/07/22 07:28 FiO2 Intake & Output 07/06/22 07/07/22 07/07/22 18:59 06:59 18:59 Intake Total 1050 Output Total 350 Balance 700 Weight 109.4 kg Intake: IV 1050 Output: Estimated Blood Loss 350 Other: Voiding Method Toilet Toilet # Voids 1 - Labs CBC & Chem 7: 07/07/22 06:48 07/07/22 06:48
--- NOTE | 2022-07-07 11:45 | P.DS ---
Providers Expected date of discharge: 07/07/22 Attending physician: Hu Olivia Consults: 07/06/22 11:11 Consult Physician Routine Consulting Provider: Taylor Mnaley Consult Reason/Comments: medical management Do you want consulting provider notified?: Yes Primary care physician: Tito Richter - Discharge Diagnosis(es) (1) Osteoarthritis of right hip Current Visit: Yes Status: Acute (2) Status post total replacement of right hip Current Visit: Yes Status: Acute Hospital Course: This is a 66-year-old Male with history of degenerative arthritis of the right knee. The patient has failed conservative outpatient treatment and elects to p [facility] with total right knee arthroplasty. The patient is evaluated by the primary care physician and cleared for surgery. The patient is admitted to [facility] on 07/06/2022 for total right knee arthroplasty. The procedure is performed without complication or sequelae. The patient is doing well postoperatively. Vital signs and labs are stable. The patient is discharged to home today in good condition. Please see med rec for accurate list of home Medications. Patient Condition at Discharge: Good Plan - Discharge Summary Discharge Rx Participant: No New Discharge Prescriptions: New Aspirin 325 mg PO BID #60 tab HYDROcodone/APAP 7.5-325MG [[place] 7.5-325] 1 - 2 tab PO Q6H PRN #32 tab PRN Reason: Pain Sennosides [Senokot] 2 tab PO DAILY PRN #60 tablet PRN Reason: Constipation Continue Pravastatin Sodium [Pravachol] 40 mg PO HS Multivitamin [Multivitamins Adult Gummies] 1 tab PO DAILY Alg Nasal [place] 1 spray EA NOSTRIL HS No Action Ibuprofen 800 mg PO TID PRN PRN Reason: Pain Discharge Medication List Multivitamin [Multivitamins Adult Gummies] 1 tab PO DAILY 03/29/19 [History] Pravastatin Sodium [Pravachol] 40 mg PO HS 03/29/19 [History] Alg Nasal [place] 1 spray EA NOSTRIL HS 07/02/22 [History] Ibuprofen 800 mg PO TID PRN 07/02/22 [History] Aspirin 325 mg PO BID #60 tab 07/06/22 [Rx] HYDROcodone/APAP 7.5-325MG [[place] 7.5-325] 1 - 2 tab PO Q6H PRN #32 tab 07/06/22 [Rx] Sennosides [Senokot] 2 tab PO DAILY PRN #60 tablet 07/06/22 [Rx] Follow up Appointment(s)/Referral(s): [facility], [NON-STAFF] - As Needed Tito Richter DO [Primary Care Provider] - 1 Week Hu Olivia DO [Doctor of Osteopathic Medicine] - 07/19/22 1:00 pm Ambulatory/Diagnostic Orders: Basic Metabolic Panel [LAB.AMB] Time Frame: 3 Days, Location: None Selected Patient Instructions/Handouts: Anterior Hip Replacement (DC) Activity/Diet/Wound Care/Special Instructions: Dressing to stay intact for 7 days and then may be removed by yourself or by home care. May shower with dressing intact. If dressing becomes saturated please remove. May bear weight as tolerated with walker. Please take aspirin 325mg twice daily for 30 days to help prevent blood clots. Please wear compression stockings during the day until follow up appointment. May remove at night. Please follow up with [facility] and call with any questions or concerns, . Discharge Disposition: HOME WITH HOME HEALTH SERVICES
[2022-07-07] MEDS ORDERED: PRAVASTATIN SODIUM 40 MG TAB PO SCH (21:00)
== END 2022-07-07 12:39 | disposition home health service (06) ==
LOC: OR 08:06 → 4SSUR 10:35 → OR 07-07 12:39
PROVIDERS: ATTEND Orthopaedic Surgery
DX: M16.11 Unilateral primary osteoarthritis, right hip (principal); E78.5 Hyperlipidemia, unspecified; Z79.82 Long term (current) use of aspirin; Z79.899 Other long term (current) drug therapy; Z82.49 Family history of ischemic heart disease and other diseases of the circulatory system; Z80.3 Family history of malignant neoplasm of breast; Z96.642 Presence of left artificial hip joint; I10 Essential (primary) hypertension; M19.012 Primary osteoarthritis, left shoulder; M19.011 Primary osteoarthritis, right shoulder; M75.42 Impingement syndrome of left shoulder; M75.41 Impingement syndrome of right shoulder
CPT/HCPCS: 97161; 97535; 97165; 86900; 86901; 80053; 85025; 86850; 88300; 73501; 27130; C1776; J1100; J0690 ×2; J2405; J2795; J1170

== ENCOUNTER → 2023-04-16 | Outpatient (CLI) | payer BC ==
[2023-04-16 09:17] LABS: African American GFR (CKD) 62 (>60 ml/min/1.73 sqM); Blood Urea Nitrogen 26 mg/dL (9-20); Non-African American GFR(CKD) 53 (>60 ml/min/1.73 sqM)
== END | disposition home or self-care (01) ==
LOC: LABWHC1 08:18
PROVIDERS: ATTEND Surgery
DX: R97.20 Elevated prostate specific antigen [PSA] (principal)
CPT/HCPCS: 36415; 82565; 84153; 84520

== ENCOUNTER 2024-05-03 11:31 | Inpatient (IN) | payer BC, MEDICARE ==
[2024-05-03] MEDS: SODIUM CHLORIDE 0.9% 1,000 ML IV STA (12:06)
--- NOTE | 2024-05-03 12:11 | ED ---
Weakness HPI - General Chief complaint: Weakness Stated complaint: Post-op weakness, blood in urine Time Seen by Provider: 05/03/24 11:51 Source: patient, family, RN notes reviewed Mode of arrival: wheelchair Limitations: no limitations - History of Present Illness Initial comments: 68-year-old male presents emergency department with chief complaint of abdominal discomfort, hematuria. Patient states he had knee surgery [address] Contreras. Patient states he had a follow-up in which they stated the knee was healing well. Patient states that he has not been eating drinking well he has had significant weight loss, abdominal pain primary in the lower abdomen, sometimes the right side. States he is urinated blood clots out. He has no history of kidney stone he had colonoscopy years ago with no acute process no prior abdominal surgeries. - Related Data Home Medications Medication Instructions Recorded Confirmed Pravastatin Sodium [Pravachol] 40 mg PO HS 03/29/19 05/03/24 metFORMIN HCL [Glucophage] 500 mg PO BID 05/03/24 05/03/24 polyethylene glycoL 3350 [Miralax] 17 gm PO DAILY PRN 05/03/24 05/03/24 Allergies Allergy/AdvReac Type Severity Reaction Status Date / Time No Known Allergies Allergy Verified 05/03/24 11:39 Review of Systems ROS Statement: Those systems with pertinent positive or pertinent negative responses have been documented in the HPI. ROS Other: All systems not noted in ROS Statement are negative. Past Medical History Past Medical History: Hyperlipidemia, Osteoarthritis (OA) Additional Past Medical History / Comment(s): varicose veins, History of Any Multi-Drug Resistant Organisms: None Reported Past Surgical History: Orthopedic Surgery Additional Past Surgical History / Comment(s): left knee 04/19/24 Past Anesthesia/Blood Transfusion Reactions: Motion Sickness Additional Past Anesthesia/Blood Transfusion Reaction / Comment(s): never had anesthesia Past Psychological History: Anxiety Past Alcohol Use History: None Reported Past Drug Use History: None Reported - Past Family History Mother Family Medical History: Cancer Father Family Medical History: Myocardial Infarction ([place]) General Exam Limitations: no limitations General appearance: alert, in no apparent distress Head exam: Present: atraumatic, normocephalic, normal inspection Eye exam: Present: normal appearance, PERRL, EOMI. Absent: scleral icterus, conjunctival injection, periorbital swelling ENT exam: Present: normal exam, normal oropharynx, mucous membranes moist Neck exam: Present: normal inspection, full ROM. Absent: tenderness, meningismus, lymphadenopathy Respiratory exam: Present: normal lung sounds bilaterally. Absent: respiratory distress, wheezes, rales, rhonchi, stridor Cardiovascular Exam: Present: regular rate, normal rhythm, normal heart sounds. Absent: systolic murmur, diastolic murmur, rubs, gallop, clicks GI/Abdominal exam: Present: soft, tenderness (Mild to moderate lower), normal bowel sounds. Absent: distended, guarding, rebound, rigid Back exam: Absent: CVA tenderness (R), CVA tenderness (L) Skin exam: Present: warm, dry, intact, normal color. Absent: rash Course Vital Signs 05/03/24 05/03/24 05/03/24 11:34 13:11 15:56 Temperature 98.0 F 98.1 F Pulse Rate 91 85 88 Respiratory 18 16 18 Rate Blood Pressure 132/76 121/85 114/72 O2 Sat by Pulse 98 96 98 Oximetry EKG Findings - EKG Comments: EKG Findings:: EKG performed at 13: 43 sinus rhythm rate of 84 WI 159 QRS 106 QT /QTc 357/398 - EKG Results: EKG: interpreted by DELANEY Medical Decision Making - Medical Decision Making Was pt. sent in by a medical professional or institution ([facility], VARNISH MAKER HELPER, urgent care, hospital, or detention...) When possible be specific @ -No Did you speak to anyone other than the patient for history (EMS, parent, family, police, friend...)? What history was obtained from this source @ -No Did you review nursing and triage notes (agree or disagree)? Why? @ -I reviewed and agree with nursing and triage notes Were old charts reviewed (outside hosp., previous admission, EMS record, old EKG, old radiological studies, urgent care reports/EKG's, detention records)? Report findings @ -No old charts were reviewed Differential Diagnosis (chest pain, altered mental status, abdominal pain women, abdominal pain men, vaginal bleeding, weakness, fever, dyspnea, syncope, headache, dizziness, GI bleed, back pain, seizure, CVA, palpatations, mental health, musculoskeletal)? @ -Differential Abdominal Pain Men: Appendicitis, cholecystitis, diverticulosis, ischemic bowel, pancreatitis, hepatitis, UTI, gastroenteritis, AAA, incarcerated hernia, bowel obstruction, constipation, inflammatory bowel, hepatitis, peptic ulcer disease, splenic infarction, perforated viscus, testicular torsion, this is not meant to be an all-inclusive list EKG interpreted by me (3pts min.). @ -As above X-rays interpreted by me (1pt min.). @ -None done CT interpreted by me (1pt min.). @ -CT abdomen pelvis showing cholelithiasis, acute appendicitis U/S interpreted by me (1pt. min.). @ -None done What testing was considered but not performed or refused? (CT, X-rays, U/S, labs)? Why? @ -None What meds were considered but not given or refused? Why? @ -None Did you discuss the management of the patient with other professionals (professionals i.e. , PA, VARNISH MAKER HELPER, lab, RT, psych nurse, director of social work, cold mill inspector, teacher, signals officer, rehabilitation case coordinator)? Give summary @ -Dr. Lee for admission recommending IV antibiotics, admission to medicine Case discussed with Dr. Mcmullen Was smoking cessation discussed for >3mins.? @ -No Was critical care preformed (if so, how long)? @ -No Were there social determinants of health that impacted care today? How? (Homelessness, low income, unemployed, alcoholism, drug addiction, t ransportation, low edu. Level, literacy, decrease access to med. care, senior care, rehab)? @ -No Was there de-escalation of care discussed even if they declined (Discuss DNR or withdrawal of care, Hospice)? DNR status @ -No What co-morbidities impacted this encounter? (DM, HTN, Smoking, COPD, CAD, Cancer, CVA, ARF, Chemo, Hep., AIDS, mental health diagnosis, sleep apnea, morbid obesity)? @ -None Was patient admitted / discharged? Hospital course, mention meds given and route, prescriptions, significant lab abnormalities, going to OR and other pertinent info. @ -Admitted patient presented for acute abdominal pain patient found to have acute appendicitis, cholelithiasis. Patient started on IV antibiotics, IV fluids analgesics. Undiagnosed new problem with uncertain prognosis? @ -No Drug Therapy requiring intensive monitoring for toxicity (Heparin, Nitro, Insulin, Cardizem)? @ -No Were any procedures done? @ -No Diagnosis/symptom? @ -Acute appendicitis Acute, or Chronic, or Acute on Chronic? @ -Acute Uncomplicated (without systemic symptoms) or Complicated (systemic symptoms)? @ -Uncomplicated Side effects of treatment? @ -No Exacerbation, Progression, or Severe Exacerbation? @ -No Poses a threat to life or bodily function? How? (Chest pain, [place], [place], pneumonia, PE, COPD, DKA, ARF, appy, cholecystitis, CVA, Diverticulitis, Homicidal, Suicidal, threat to staff... and all critical care pts) @ -Yes surgical risk - Lab Data Result diagrams: 05/07/24 13:21 05/07/24 13:21 Lab Results 05/03/24 05/03/24 05/03/24 Range/Units 12:08 12:08 12:08 WBC 17.2 H (3.8-10.6) k/uL RBC 4.49 (4.30-5.90) m/uL Hgb 13.4 (13.0-17.5) gm/dL Hct 42.0 (39.0-53.0) % MCV 93.6 (80.0-100.0) fL MCH 29.8 (25.0-35.0) pg MCHC 31.8 (31.0-37.0) g/dL RDW 13.1 (11.5-15.5) % Plt Count 431 (150-450) k/uL MPV 7.7 Neutrophils % 87 % Lymphocytes % 7 % Monocytes % 4 % Eosinophils % 1 % Basophils % 0 % Neutrophils # 15.0 H (1.3-7.7) k/uL Lymphocytes # 1.2 (1.0-4.8) k/uL Monocytes # 0.7 (0-1.0) k/uL Eosinophils # 0.1 (0-0.7) k/uL Basophils # 0.0 (0-0.2) k/uL Sodium 135 L (137-145) mmol/L Potassium 4.1 (3.5-5.1) mmol/L Chloride 103 (98-107) mmol/L Carbon Dioxide 19 L (22-30) mmol/L Anion Gap 13 mmol/L BUN 34 H (9-20) mg/dL Creatinine 1.54 H (0.66-1.25) mg/dL Est GFR (CKD-EPI)AfAm 53 (>60 ml/min/1.73 sqM) Est GFR (CKD-EPI)NonAf 46 (>60 ml/min/1.73 sqM) Glucose 201 H (74-99) mg/dL Lactic Ac Sepsis Rflx Plasma Lactic Acid [place] (0.7-2.0) mmol/L Calcium 9.3 (8.4-10.2) mg/dL Total Bilirubin 1.6 H (0.2-1.3) mg/dL AST 38 (17-59) U/L ALT 32 (4-49) U/L Alkaline Phosphatase 115 (38-126) U/L Total Protein 7.5 (6.3-8.2) g/dL Albumin 4.1 (3.5-5.0) g/dL Lipase 130 (23-300) U/L Urine Color Yellow Urine Appearance Clear (Clear) Urine pH 5.5 (5.0-8.0) Ur Specific [place] 1.022 (1.001-1.035) Urine Protein 1+ H (Negative) Urine Glucose (UA) Trace H (Negative) Urine Ketones Negative (Negative) Urine Blood Trace H (Negative) Urine Nitrite Negative (Negative) Urine Bilirubin Negative (Negative) Urine Urobilinogen 3.0 (<2.0) mg/dL Ur Leukocyte Esterase Negative (Negative) Urine RBC <1 (0-5) /hpf Urine WBC 1 (0-5) /hpf Ur Squamous Epith Cells <1 (0-4) /hpf Urine Bacteria Rare H (None) /hpf Urine Mucus Occasional H (None) /hpf 05/03/24 05/03/24 Range/Units 12:08 12:59 WBC (3.8-10.6) k/uL RBC (4.30-5.90) m/uL Hgb (13.0-17.5) gm/dL Hct (39.0-53.0) % MCV (80.0-100.0) fL MCH (25.0-35.0) pg MCHC (31.0-37.0) g/dL RDW (11.5-15.5) % Plt Count (150-450) k/uL MPV Neutrophils % % Lymphocytes % % Monocytes % % Eosinophils % % Basophils % % Neutrophils # (1.3-7.7) k/uL Lymphocytes # (1.0-4.8) k/uL Monocytes # (0-1.0) k/uL Eosinophils # (0-0.7) k/uL Basophils # (0-0.2) k/uL Sodium (137-145) mmol/L Potassium (3.5-5.1) mmol/L Chloride (98-107) mmol/L Carbon Dioxide (22-30) mmol/L Anion Gap mmol/L BUN (9-20) mg/dL Creatinine (0.66-1.25) mg/dL Est GFR (CKD-EPI)AfAm (>60 ml/min/1.73 sqM) Est GFR (CKD-EPI)NonAf (>60 ml/min/1.73 sqM) Glucose (74-99) mg/dL Lactic Ac Sepsis Rflx Y Plasma Lactic Acid [place] 2.3 H* (0.7-2.0) mmol/L Calcium (8.4-10.2) mg/dL Total Bilirubin (0.2-1.3) mg/dL AST (17-59) U/L ALT (4-49) U/L Alkaline Phosphatase (38-126) U/L Total Protein (6.3-8.2) g/dL Albumin (3.5-5.0) g/dL Lipase (23-300) U/L Urine Color Urine Appearance (Clear) Urine pH (5.0-8.0) Ur Specific [place] (1.001-1.035) Urine Protein (Negative) Urine Glucose (UA) (Negative) Urine Ketones (Negative) Urine Blood (Negative) Urine Nitrite (Negative) Urine Bilirubin (Negative) Urine Urobilinogen (<2.0) mg/dL Ur Leukocyte Esterase (Negative) Urine RBC (0-5) /hpf Urine WBC (0-5) /hpf Ur Squamous Epith Cells (0-4) /hpf Urine Bacteria (None) /hpf Urine Mucus (None) /hpf Disposition Clinical Impression: Acute appendicitis, Cholelithiasis, Status post total knee replacement, left Disposition: ADMITTED IP TO [facility] Condition: Fair Time of Disposition: 13:38
[2024-05-03 12:16] LABS: Basophils % (A) 0 %; Eosinophils # (A) 0.1 k/uL (0-0.7); Eosinophils % (A) 1 %; HGB 13.4 gm/dL (13.0-17.5); Lymphocytes # (A) 1.2 k/uL (1.0-4.8); Lymphocytes % (A) 7 %; MCH 29.8 pg (25.0-35.0); MCHC 31.8 g/dL (31.0-37.0); MCV 93.6 fL (80.0-100.0); Mean Platelet Volume 7.7; Monocytes # (A) 0.7 k/uL (0-1.0); Monocytes % (A) 4 %; Neutrophils % (A) 87 %; Platelet Count 431 k/uL (150-450); RBC 4.49 m/uL (4.30-5.90); RDW 13.1 % (11.5-15.5); WBC 17.2 k/uL (3.8-10.6)
[2024-05-03 12:56] LABS: ALT 32 U/L (4-49); AST 38 U/L (17-59); African American GFR (CKD) 53 (>60 ml/min/1.73 sqM); Albumin 4.1 g/dL (3.5-5.0); Alkaline Phosphatase 115 U/L (38-126); Anion Gap 13 mmol/L; Blood Urea Nitrogen 34 mg/dL (9-20); Calcium 9.3 mg/dL (8.4-10.2); Carbon Dioxide 19 mmol/L (22-30); Chloride 103 mmol/L (98-107); Glucose 201 mg/dL (74-99); Lipase 130 U/L (23-300); Non-African American GFR(CKD) 46 (>60 ml/min/1.73 sqM); Potassium 4.1 mmol/L (3.5-5.1); Sodium 135 mmol/L (137-145); Total Bilirubin 1.6 mg/dL (0.2-1.3); Total Protein 7.5 g/dL (6.3-8.2)
--- NOTE | 2024-05-03 13:21 | CT ---
EXAMINATION TYPE: CT abdomen pelvis wo con CT DLP: 863.8 mGycm, Automated exposure control for dose reduction was used. DATE OF EXAM: 05/03/2024 12:42 PM COMPARISON: None. CLINICAL INDICATION:Male, 68 years old with history of Hematuria, abdominal pain, weight loss; pain, hematuria. pt had knee replacement 04/19. TECHNIQUE: Axial CT abdomen pelvis wo con;Sagittal and coronal reformats were created on a separate workstation. Contrast used: mL of , (none if empty) Oral contrast used: without Oral Contrast (none if empty) FINDINGS: LOWER CHEST: Unremarkable ABDOMEN LIVER: Unremarkable GALLBLADDER AND BILE DUCTS: Layering increased densities within the lumen consistent with gallstones are present. PANCREAS: Unremarkable. SPLEEN: Unremarkable. ADRENAL GLANDS: Unremarkable. KIDNEYS AND URETERS: No evidence of hydronephrosis or renal calculus. The ureters are unremarkable. Left cortical calcification. PELVIS BLADDER: Poor visualization due to streak artifact. REPRODUCTIVE: Unremarkable. ABDOMEN & PELVIS STOMACH AND BOWEL: No evidence of bowel obstruction. Appendix is visualized dilated concerning fat st randing measuring up to 25 mm in thickness with 22 x 12 mm appendicolith. No free air or organizing f luid collection this time. I will thickening of the terminal ileum adjacent to the acute appendicitis findings. PERITONEUM/RETROPERITONEUM: No evidence of pneumoperitoneum or free fluid. VASCULATURE: No evidence of aortic aneurysm. MUSCULOSKELETAL: No acute osseous abnormalities, bilateral hip arthroplasties with hardware intact. LYMPH NODES: No gross evidence for lymphadenopathy. SOFT TISSUE/ABDOMINAL WALL: Unremarkable IMPRESSION: 1. Acute uncomplicated appendicitis with large appendicolith measuring up to 22 x 12 mm. No evidence for perforation or organizing fluid collection. 2. Cholelithiasis. 3. Reactive ileitis. 4. No evidence for obstructive uropathy or calculus. Evaluation of the bladder is limited due to str eak artifact from hip arthroplasties.
[2024-05-03 13:32] LABS: Appearance,Urine Clear (Clear); Bacteria,Urine Rare /hpf; Bilirubin,Urine Negative (Negative); Blood,Urine Trace (Negative); Color,Urine Yellow; Glucose,Urine (UA) Trace (Negative); Ketones,Urine Negative (Negative); Leukocyte Esterase,Urine Negative (Negative); Mucus,Urine Occasional /hpf; Nitrite,Urine Negative (Negative); PH, Urine 5.5 (5.0-8.0); Protein,Urine 1+ (Negative); RBC,Urine <1 /hpf (0-5); Specific Gravity,Urine 1.022 (1.001-1.035); Squamous Epithelial Cell,Urine <1 /hpf (0-4); WBC,Urine 1 /hpf (0-5)
[2024-05-03] MEDS ORDERED: NALOXONE 0.4 MG/ML 1 ML VIAL IV PRN (13:38)
[2024-05-03] MEDS: SODIUM CHLORIDE 0.9% 1,000 ML IV SCH (13:43)
[2024-05-03] MEDS: PIPERACILLIN-TAZOBACTAM 3.375 GM in SODIUM CHLORIDE 0.9% 100 ML IVPB SCH (15:24)
--- NOTE | 2024-05-03 15:49 | P.GSCN ---
History of Present Illness Consult date: 05/03/24 History of present illness: CHIEF COMPLAINT: Abdominal pain HISTORY OF PRESENT ILLNESS: The patient is a 68 year old male who comes in with 4-day history of abdominal ache. Patient usually denies any heartburn or abdominal pain otherwise. He is status post recent left knee replacement approximately 2 weeks ago. He is about to start physical therapy on Tuesday, 4 days from now. His family is at bedside concerned. Patient reports low appetite for the past 4 days. No nausea and vomiting. No blood in stools. General surgery is consulted due to abnormal CT scan for appendicitis. Incidentally, patient had recent cardiac risk assessment for his knee surgery in the last 3 months. Patient was assessed in the emergency room where he was still in street close. He was sitting in a chair with minimal complaints. Family at bedside reports patient did have a bowel movement today. He had been constipated prior. PAST MEDICAL HISTORY: See list and reviewed PAST SURGICAL HISTORY: See list and reviewed MEDICATIONS: See list and reviewed ALLERGIES: See list and reviewed SOCIAL HISTORY: See list and reviewed FAMILY HISTORY: See list and reviewed REVIEW OF ORGAN SYSTEMS: CONSTITUTIONAL: No fevers or chills. No recent weight loss. EYES: Denies any trouble with vision. Wears glasses. HEENT: No difficulties with hearing. No nosebleeds. No difficulty swallowing. RESPIRATORY: Denies pneumonia. Denies any troubles with breathing or dyspnea on exertion. CARDIOVASCULAR: Denies any chest pain, palpitations, or recent heart attacks. Has hyperlipidemia. GASTROINTESTINAL: Denies fatty food intolerance. Denies change in bowel habits and gas bloat. Denies gastroesophageal reflux disease. GENITOURINARY: Denies any blood in urine or increased urinary frequency. NEUROLOGICAL: Denies any numbness or tingling along the distal extremities. No seizure disorders or headaches. MUSCULOSKELETAL: Has osteoarthritis of the knee, status post left knee replacement. SKIN: No current skin cancer. No rash. PSYCHIATRIC: Denies current depression or suicidal thoughts. Has anxiety disorder. ENDOCRINE: Denies current thyroid disorders. Denies any blood sugar glucose intolerance. HEME/LYMPHATIC: Denies any lumps and bumps around the neck. No recent deep venous thrombosis. ALLERGY/IMMUNOLOGY: No immunoglobulin therapy. No immune deficiencies. BREAST: Denies current breast lumps, pain or nipple discharge. PHYSICAL EXAM: VITALS: Reviewed CONSTITUTIONAL: Well developed and in no acute distress. Nontoxic in appearance EYES: Conjuctivae without sclera icterus. Extraocular movements grossly intact. HEAD, EARS, NOSE, THROAT: Moist buccal mucosa. Head is atraumatic, normocephalic. Hears conversational speech. No nasal drainage. NECK: Supple. No JV distention. No thyroidomegaly. RESPIRATORY: Non-labored respirations and equal bilateral excursions. No gross wheezes. CARDIOVASCULAR: Palpable 2+ radial pulses. ABDOMEN: No peritonitis. Mild tenderness lower abdomen. LYMPH: No neck lymphadenopathy. MUSCULOSKELETAL: No clubbing cyanosis or edema SKIN: Warm and well perfused with good skin turgor. NEUROLOGIC: Cranial nerves II through XII grossly intact. No focal or lateralizing signs. PSYCH: Appropriate affect. Alert and oriented to person, place and time. Displays appropriate insight. CLINCAL LABS: Reviewed. WBC elevated 17,000. Hemoglobin 13.4. Creatinine elevated 1.54. Glucose elevated 201. Lactic acid elevated 2.3. IMAGING: Independently reviewed. CT of the abdomen pelvis independently reviewed demonstrated multiple large gallstones over 3 cm. Large appendicolith over 1 cm with inflammatory changes in the right lower quadrant. No free fluid. No bowel obstruction. No free air. This is my independent or potation. RADIOLOGY: Report reviewed. CT abdomen pelvis dilated appendix 25 mm with large 2.2 cm appendicolith. Reactive ileitis. Presence of gallstones. EKG: Borderline left axis deviation. Abnormal EKG. RECORDS: previous old records reviewed, 2021 degenerative joint disease total right hip arthroplasty. ASSESSMENT: 1. Abdominal pain due to appendicitis 2. Leukocytosis 3. Cholelithiasis 4. Lactic acidosis 5. Renal impairment 6. Status post left knee replacement PLAN: 1. IV fluid hydration due to lactic acidosis and renal impairment 2. Recommend optimization prior to surgery including IV fluid hydration, IV antibiotics, rehydration with full liquid diet 3. Repeat CBC and CMP for tomorrow 4. Due to recent knee replacement, consultation of physical therapy and orth opedics team 5. At this time, no acute surgical invention for cholelithiasis the patient is asymptomatic at this time 6. All questions including surgical pain and approach described. Minimally invasive, robotic technique discussed for optimal recovery and least morbidity ADVANCE DIRECTIVE: CODE STATUS in chart Thank you for this kind consultation. Past Medical History Past Medical History: Hyperlipidemia, Osteoarthritis (OA) Additional Past Medical History / Comment(s): varicose veins, History of Any Multi-Drug Resistant Organisms: None Reported Past Surgical History: Orthopedic Surgery Additional Past Surgical History / Comment(s): left knee 04/19/24 Past Anesthesia/Blood Transfusion Reactions: Motion Sickness Additional Past Anesthesia/Blood Transfusion Reaction / Comm: never had anesthesia Past Psychological History: Anxiety Past Alcohol Use History: None Reported Past Drug Use History: None Reported - Past Family History Mother Family Medical History: Cancer Father Family Medical History: Myocardial Infarction ([place]) Medications and Allergies Home Medications Medication Instructions Recorded Confirmed Type Pravastatin Sodium [Pravachol] 40 mg PO HS 03/29/19 05/03/24 History metFORMIN HCL [Glucophage] 500 mg PO BID 05/03/24 05/03/24 History polyethylene glycoL 3350 [Miralax] 17 gm PO DAILY PRN 05/03/24 05/03/24 History Allergies Allergy/AdvReac Type Severity Reaction Status Date / Time No Known Allergies Allergy Verified 05/03/24 11:39 Surgical - Exam Vital Signs Temp Pulse Resp BP Pulse Ox 98.0 F 91 18 132/76 98 05/03/24 11:34 05/03/24 11:34 05/03/24 11:34 05/03/24 11:34 05/03/24 11:34 Results - Labs 05/03/24 12:08 05/03/24 12:08 Abnormal Lab Results - Last 24 Hours (Table) 05/03/24 05/03/24 05/03/24 Range/Units 12:08 12:08 12:08 WBC 17.2 H (3.8-10.6) k/uL Neutrophils # 15.0 H (1.3-7.7) k/uL Sodium 135 L (137-145) mmol/L Carbon Dioxide 19 L (22-30) mmol/L BUN 34 H (9-20) mg/dL Creatinine 1.54 H (0.66-1.25) mg/dL Glucose 201 H (74-99) mg/dL Plasma Lactic Acid Blayne (0.7-2.0) mmol/L Total Bilirubin 1.6 H (0.2-1.3) mg/dL Urine Protein 1+ H (Negative) Urine Glucose (UA) Trace H (Negative) Urine Blood Trace H (Negative) Urine Bacteria Rare H (None) /hpf Urine Mucus Occasional H (None) /hpf 05/03/24 Range/Units 12:08 WBC (3.8-10.6) k/uL Neutrophils # (1.3-7.7) k/uL Sodium (137-145) mmol/L Carbon Dioxide (22-30) mmol/L BUN (9-20) mg/dL Creatinine (0.66-1.25) mg/dL Glucose (74-99) mg/dL Plasma Lactic Acid Blayne 2.3 H* (0.7-2.0) mmol/L Total Bilirubin (0.2-1.3) mg/dL Urine Protein (Negative) Urine Glucose (UA) (Negative) Urine Blood (Negative) Urine Bacteria (None) /hpf Urine Mucus (None) /hpf Diabetes panel 05/03/24 Range/Units 12:08 Sodium 135 L (137-145) mmol/L Potassium 4.1 (3.5-5.1) mmol/L Chloride 103 (98-107) mmol/L Carbon Dioxide 19 L (22-30) mmol/L BUN 34 H (9-20) mg/dL Creatinine 1.54 H (0.66-1.25) mg/dL Glucose 201 H (74-99) mg/dL Calcium 9.3 (8.4-10.2) mg/dL AST 38 (17-59) U/L ALT 32 (4-49) U/L Alkaline Phosphatase 115 (38-126) U/L Total Protein 7.5 (6.3-8.2) g/dL Albumin 4.1 (3.5-5.0) g/dL Calcium panel 05/03/24 Range/Units 12:08 Calcium 9.3 (8.4-10.2) mg/dL Albumin 4.1 (3.5-5.0) g/dL Pituitary panel 05/03/24 Range/Units 12:08 Sodium 135 L (137-145) mmol/L Potassium 4.1 (3.5-5.1) mmol/L Chloride 103 (98-107) mmol/L Carbon Dioxide 19 L (22-30) mmol/L BUN 34 H (9-20) mg/dL Creatinine 1.54 H (0.66-1.25) mg/dL Glucose 201 H (74-99) mg/dL Calcium 9.3 (8.4-10.2) mg/dL Adrenal panel 05/03/24 Range/Units 12:08 Sodium 135 L (137-145) mmol/L Potassium 4.1 (3.5-5.1) mmol/L Chloride 103 (98-107) mmol/L Carbon Dioxide 19 L (22-30) mmol/L BUN 34 H (9-20) mg/dL Creatinine 1.54 H (0.66-1.25) mg/dL Glucose 201 H (74-99) mg/dL Calcium 9.3 (8.4-10.2) mg/dL Total Bilirubin 1.6 H (0.2-1.3) mg/dL AST 38 (17-59) U/L ALT 32 (4-49) U/L Alkaline Phosphatase 115 (38-126) U/L Total Protein 7.5 (6.3-8.2) g/dL Albumin 4.1 (3.5-5.0) g/dL
[2024-05-03] MEDS: SODIUM CHLORIDE 0.9% 2,000 ML IV ONE (16:01)
[2024-05-03] MEDS: metroNIDAZOLE-NS PMX 500 MG in SALINE 1 100ML.BAG IVPB SCH (21:25)
[2024-05-04 05:50] LABS: Basophils # (A) 0.1 k/uL (0-0.2); Basophils % (A) 0 %; Eosinophils # (A) 0.1 k/uL (0-0.7); Eosinophils % (A) 0 %; HGB 11.3 gm/dL (13.0-17.5); Lymphocytes # (A) 1.6 k/uL (1.0-4.8); Lymphocytes % (A) 11 %; MCHC 31.5 g/dL (31.0-37.0); MCV 95.3 fL (80.0-100.0); Mean Platelet Volume 7.8; Monocytes # (A) 0.9 k/uL (0-1.0); Monocytes % (A) 7 %; Neutrophils # (A) 11.2 k/uL (1.3-7.7); Neutrophils % (A) 80 %; Platelet Count 375 k/uL (150-450); RBC 3.78 m/uL (4.30-5.90); RDW 13.1 % (11.5-15.5); WBC 14.1 k/uL (3.8-10.6)
[2024-05-04 05:58] LABS: ALT 39 U/L (4-49); AST 42 U/L (17-59); African American GFR (CKD) 61 (>60 ml/min/1.73 sqM); Albumin 3.2 g/dL (3.5-5.0); Albumin/Globulin Ratio 1.1; Alkaline Phosphatase 119 U/L (38-126); Anion Gap 9 mmol/L; Blood Urea Nitrogen 25 mg/dL (9-20); Calcium 8.6 mg/dL (8.4-10.2); Carbon Dioxide 18 mmol/L (22-30); Chloride 107 mmol/L (98-107); Globulin 2.9 g/dL; Glucose 101 mg/dL (74-99); Non-African American GFR(CKD) 53 (>60 ml/min/1.73 sqM); Potassium 4.1 mmol/L (3.5-5.1); Sodium 134 mmol/L (137-145); Total Bilirubin 1.7 mg/dL (0.2-1.3); Total Protein 6.1 g/dL (6.3-8.2)
--- NOTE | 2024-05-04 07:20 | P.HPIM ---
History of Present Illness Patient is a pleasant 68 years old male with past medical history of multiple medical problems Presents because of abdominal pain for a few days [place] like mild event patient was sitting in chair not an distress. Pain states is nonradiating nonspecific in quality no precipitating or relieving factors. Patient reports no vomiting. Patient usually constipated but he had loose bowel movements earlier today No other specific complaint and is just urine. No headache dizziness weakness or confusion He denies smoking alcohol or illicit drugs His PCP is Dr. Castillo Vital stable and is afebrile He has mild leukocytosis at 17,000, creatinine at baseline 1.5 as he has CKD stage III He has some elevated lactic acid 2.3 came back to reference range however he is continued on normal saline at 130 mL/h EKG showing sinus rhythm at [address]-T changes CT of the abdomen and pelvis showing gallstones with no hydronephrosis but dila franca complex appendix with 22 x 12 mm of plebolith Review of Systems Review of systems CONSTITUTIONAL: No fever, no malaise, no fatigue. HEENT: No recent visual problems or hearing problems. Denied any sore throat. CARDIOVASCULAR: No orthopnea, PND, no palpitations, no syncope. PULMONARY: No shortness of breath, no cough, no hemoptysis. GASTROINTESTINAL: As above NEUROLOGICAL: No headaches, no weakness, no numbness. HEMATOLOGICAL: Denies any bleeding or petechiae. GENITOURINARY: Denies any burning micturition, frequency, or urgency. MUSCULOSKELETAL/RHEUMATOLOGICAL: Denies any joint pain, swelling, or any muscle pain. ENDOCRINE: Denies any polyuria or polydipsia. Past Medical History Past Medical History: Hyperlipidemia, Osteoarthritis (OA) Additional Past Medical History / Comment(s): varicose veins, History of Any Multi-Drug Resistant Organisms: None Reported Past Surgical History: Orthopedic Surgery Additional Past Surgical History / Comment(s): left knee 04/19/24 Past Anesthesia/Blood Transfusion Reactions: Motion Sickness Additional Past Anesthesia/Blood Transfusion Reaction / Comment(s): never had anesthesia Past Psychological History: Anxiety Past Alcohol Use History: None Reported Past Drug Use History: None Reported - Past Family History Mother Family Medical History: Cancer Father Family Medical History: Myocardial Infarction ([place]) Medications and Allergies Home Medications Medication Instructions Recorded Confirmed Type Pravastatin Sodium [Pravachol] 40 mg PO HS 03/29/19 05/03/24 History metFORMIN HCL [Glucophage] 500 mg PO BID 05/03/24 05/03/24 History polyethylene glycoL 3350 [Miralax] 17 gm PO DAILY PRN 05/03/24 05/03/24 History Allergies Allergy/AdvReac Type Severity Reaction Status Date / Time No Known Allergies Allergy Verified 05/03/24 11:39 Physical Exam Vitals: Vital Signs Temp Pulse Resp BP Pulse Ox 05/03/24 13:11 85 16 121/85 96 05/03/24 11:34 98.0 F 91 18 132/76 98 Intake and Output 05/03/24 05/03/24 05/03/24 06:59 14:59 22:59 Other: Weight 95.708 kg GENERAL: The patient is alert and oriented x3, not in any acute distress. Well developed, well nourished. HEENT: Pupils are round and equally reacting to light. EOMI. No scleral icterus. No conjunctival pallor. Normocephalic, atraumatic. No pharyngeal erythema. No thyromegaly. CARDIOVASCULAR: S1 and S2 present. No murmurs, rubs, or gallops. PULMONARY: Chest is clear to auscultation, no wheezing , no crackles. -ABDOMEN: Soft mild right lower abdominal tenderness, no rebound tenderness or guarding, nondistended, normoactive bowel sounds. No palpable organomegaly. MUSCULOSKELETAL: No joint swelling or deformity. EXTREMITIES: No cyanosis, clubbing, or pedal edema. NEUROLOGICAL: Gross neurological examination did not reveal any focal deficits. SKIN: No rashes. no petechiae. Results CBC & Chem 7: 05/04/24 05:29 05/04/24 05:29 Labs: Abnormal Lab Results - Last 24 Hours (Table) 05/03/24 05/03/24 05/03/24 Range/Units 12:08 12:08 12:08 WBC 17.2 H (3.8-10.6) k/uL Neutrophils # 15.0 H (1.3-7.7) k/uL Sodium 135 L (137-145) mmol/L Carbon Dioxide 19 L (22-30) mmol/L BUN 34 H (9-20) mg/dL Creatinine 1.54 H (0.66-1.25) mg/dL Glucose 201 H (74-99) mg/dL Plasma Lactic Acid Blayne (0.7-2.0) mmol/L Total Bilirubin 1.6 H (0.2-1.3) mg/dL Urine Protein 1+ H (Negative) Urine Glucose (UA) Trace H (Negative) Urine Blood Trace H (Negative) Urine Bacteria Rare H (None) /hpf Urine Mucus Occasional H (None) /hpf 05/03/24 Range/Units 12:08 WBC (3.8-10.6) k/uL Neutrophils # (1.3-7.7) k/uL Sodium (137-145) mmol/L Carbon Dioxide (22-30) mmol/L BUN (9-20) mg/dL Creatinine (0.66-1.25) mg/dL Glucose (74-99) mg/dL Plasma Lactic Acid Blayne 2.3 H* (0.7-2.0) mmol/L Total Bilirubin (0.2-1.3) mg/dL Urine Protein (Negative) Urine Glucose (UA) (Negative) Urine Blood (Negative) Urine Bacteria (None) /hpf Urine Mucus (None) /hpf Assessment and Plan Assessment: acute appendicitis with dilated complex appendix with 22 x 12 mm of plebolith Sepsis secondary to above with elevated white cell count and lactic acid CKD stage III Reactive ileitis Gallstones with no evidence with acute cholecystitis Recent history of left knee replacement, not active issue and wound is healing. Patient saw his orthopedic prior to hospitalization and it was fine Plan: Continue with bowel rest IV fluids Pain medication Surgical team consult Hold metformin and continue with insulin sliding scale Labs and medication were reviewed.. Continue same treatment. Continue with symptomatic treatment. Resume home medication. Monitor labs and vitals. DVT and GI prophylaxis. Further recommendations as per clinical course of the patient DVT prophylaxis: Subcutaneous heparin GI Prophylaxis: Pepcid PT/OT: Pending Prognosis is guarded
--- NOTE | 2024-05-04 08:04 | P.PN ---
Subjective Progress Note Date: 05/04/24 CHIEF COMPLAINT: Abdominal pain HISTORY OF PRESENT ILLNESS: The patient is a 68 year old male who comes in with subacute appendicitis. Patient reports no increased abdominal pain. Patient has history of knee replacement. He is pending physical therapy. He does have swelling appropriate of the left knee. REVIEW OF ORGAN SYSTEMS: CONSTITUTIONAL: No fevers or chills. No recent weight loss. EYES: Denies any trouble with vision. Wears glasses. HEENT: No difficulties with hearing. No nosebleeds. No difficulty swallowing. PHYSICAL EXAM: VITALS: Reviewed CONSTITUTIONAL: Well developed and in no acute distress. Nontoxic in appearance EYES: Conjuctivae without sclera icterus. Extraocular movements grossly intact. HEAD, EARS, NOSE, THROAT: Moist buccal mucosa. Head is atraumatic, normoce phalic. Hears conversational speech. No nasal drainage. RESPIRATORY: Non-labored respirations and equal bilateral excursions. No gross wheezes. CARDIOVASCULAR: Palpable 2+ radial pulses. ABDOMEN: No peritonitis. Mild tenderness lower abdomen. MUSCULOSKELETAL: Swelling along the left knee. Well-healed incision. SKIN: Warm and well perfused with good skin turgor. NEUROLOGIC: Cranial nerves II through XII grossly intact. No focal or lateralizing signs. PSYCH: Appropriate affect. Alert and oriented to person, place and time. Displays appropriate insight. CLINCAL LABS: Reviewed. WBC declined from 17,000-14,000. Hemoglobin 11.1, anemia. Lactic acidosis normal ASSESSMENT: 1. Abdominal pain due to appendicitis 2. Leukocytosis 3. Cholelithiasis 4. Lactic acidosis 5. Renal impairment 6. Status post left knee replacement 7. Anemia 8. Dehydration PLAN: 1. Will obtain stat duplex bilateral lower extremity ultrasound due to elevated risk of pulmonary embolism with impending laparoscopic surgery. 2. Flomax preoperatively for postop urinary tension 3. Recommend robotic appendectomy Objective - Vital Signs Vital signs: Vital Signs Temp 98.0 F 05/04/24 07:58 Pulse 79 05/04/24 07:58 Resp 16 05/04/24 07:58 BP 122/70 05/04/24 07:58 Pulse Ox 95 05/04/24 07:58 FiO2 Intake & Output 05/03/24 05/04/24 05/04/24 18:59 06:59 18:59 Intake Total 2450 Balance 2450 Weight 95.708 kg Intake: Intake, IV Titration 2100 Amount Piperacillin-Tazobactam 3 100 .375 gm In Sodium Chloride 0.9% 100 ml @ 25 mls/hr IVPB Q8HR [facility] Rx# :[id number] Sodium Chloride 0.9% 2, 2000 000 ml @ 999 mls/hr IV . Q2H1M ONE Rx#:[id number] Oral 350 Other: # Voids 2 - Labs CBC & Chem 7: 05/04/24 05:29 05/04/24 05:29 Labs: Abnormal Lab Results - Last 24 Hours (Table) 05/03/24 05/03/24 05/03/24 Range/Units 12:08 12:08 12:08 WBC 17.2 H (3.8-10.6) k/uL RBC (4.30-5.90) m/uL Hgb (13.0-17.5) gm/dL Hct (39.0-53.0) % Neutrophils # 15.0 H (1.3-7.7) k/uL Sodium 135 L (137-145) mmol/L Carbon Dioxide 19 L (22-30) mmol/L BUN 34 H (9-20) mg/dL Creatinine 1.54 H (0.66-1.25) mg/dL Glucose 201 H (74-99) mg/dL Plasma Lactic Acid Blayne (0.7-2.0) mmol/L Total Bilirubin 1.6 H (0.2-1.3) mg/dL Total Protein (6.3-8.2) g/dL Albumin (3.5-5.0) g/dL Urine Protein 1+ H (Negative) Urine Glucose (UA) Trace H (Negative) Urine Blood Trace H (Negative) Urine Bacteria Rare H (None) /hpf Urine Mucus Occasional H (None) /hpf 05/03/24 05/04/24 05/04/24 Range/Units 12:08 05:29 05:29 WBC 14.1 H (3.8-10.6) k/uL RBC 3.78 L (4.30-5.90) m/uL Hgb 11.3 L (13.0-17.5) gm/dL Hct 36.0 L (39.0-53.0) % Neutrophils # 11.2 H (1.3-7.7) k/uL Sodium 134 L (137-145) mmol/L Carbon Dioxide 18 L (22-30) mmol/L BUN 25 H (9-20) mg/dL Creatinine 1.37 H (0.66-1.25) mg/dL Glucose 101 H (74-99) mg/dL Plasma Lactic Acid Blayne 2.3 H* (0.7-2.0) mmol/L Total Bilirubin 1.7 H (0.2-1.3) mg/dL Total Protein 6.1 L (6.3-8.2) g/dL Albumin 3.2 L (3.5-5.0) g/dL Urine Protein (Negative) Urine Glucose (UA) (Negative) Urine Blood (Negative) Urine Bacteria (None) /hpf Urine Mucus (None) /hpf
[2024-05-04] MEDS: HEPARIN SODIUM,PORCINE 5,000 UNIT/ML 1 ML VIAL SQ STA (08:07)
[2024-05-04] MEDS: TAMSULOSIN 0.4 MG CAP.ER.24H PO STA (08:07)
--- NOTE | 2024-05-04 08:31 | US ---
EXAMINATION TYPE: US venous doppler duplex LE BI DATE OF EXAM: 05/04/2024 8:11 AM COMPARISON: NONE CLINICAL INDICATION: Male, 68 years old with history of Lower extremity swelling; Left leg edema. lef t knee replacement 04/19/24 SIDE PERFORMED: bilateral TECHNIQUE: The lower extremity deep venous system is examined utilizing real time linear array sonog russ with graded compression, doppler sonography and color-flow sonography. VESSELS IMAGED: Common Femoral Vein Deep Femoral Vein Greater Saphenous Vein * Femoral Vein Popliteal Vein Small Saphenous Vein * Proximal Calf Veins (* superficial vessels) Right Leg: no evidence of DVT Left Leg: no evidence of DVT at this time. Rouleaux flow left popliteal vein IMPRESSION: 1. No diagnostic evidence of DVT bilaterally.
[2024-05-04] MEDS: IV FLUID CONTINUATION 1,000 ML IV ONE ×2 (10:26→13:31)
[2024-05-04] MEDS: ONDANSETRON 4 MG/2 ML VIAL IVP PRN (10:47)
[2024-05-04 10:55] LABS: Glucose,Whole Blood 100 mg/dL (70-110)
[2024-05-04] MEDS ORDERED: NEOSTIGMINE 1 MG/ML 10 ML VIAL ONE (11:24)
[2024-05-04] MEDS ORDERED: PHENYLEPHRINE-0.9% NACL SYG 1,000 MCG/10 ML SYRINGE ONE (11:24)
[2024-05-04] MEDS ORDERED: MIDAZOLAM 2 MG/2 ML VIAL ONE (11:24)
[2024-05-04] MEDS ORDERED: SUCCINYLCHOLINE CHLORIDE 200 MG/10 ML VIAL IV ONE (11:24)
[2024-05-04] MEDS ORDERED: PROPOFOL 10 MG/ML 20 ML VIAL IV ONE (11:24)
[2024-05-04] MEDS ORDERED: LIDOCAINE 1% INJ 10MG/ML (20 ML MDV) ONE (11:24)
[2024-05-04] MEDS ORDERED: GLYCOPYRROLATE 0.2 MG/ML 2 ML VIAL ONE (11:24)
[2024-05-04] MEDS ORDERED: fentaNYL (PF) 50 MCG/ML 2 ML AMP ONE (11:24)
[2024-05-04] MEDS ORDERED: ROCURONIUM 10 MG/ML (5 ML VIAL) IV ONE (11:24)
[2024-05-04] MEDS ORDERED: HYDROmorphone (PF) 1 MG/ML ONE (11:24)
[2024-05-04] MEDS: LIDOCAINE 1%-EPI 1:100,000 20 ML VIAL SQ ONE (12:09)
[2024-05-04] MEDS: LACTATED RINGERS 1,000 ML IV ONE (12:27)
[2024-05-04 13:46] VITALS: BMI 29.4
[2024-05-04] MEDS: HYDROmorphone 1 MG/ML 1 ML SYRINGE IVP PRN (14:46)
[2024-05-04] MEDS: ACETAMINOPHEN IV (For NPO) 1,000 MG in EMPTY BAG 1 BAG IVPB ONE (14:51)
[2024-05-04] MEDS: MORPHINE SULFATE 2 MG/ML SYRINGE IVP PRN (16:50)
--- NOTE | 2024-05-04 17:13 | P.CNOR ---
History of Present Illness - [facility] Consult date: 05/04/24 History of present illness: This is a 68-year-old male who recently had a left total knee replacement by Dr. Hu Olivia who presented to the [facility] ER for recent decrease in appetite and abdominal pain. They were found to have appendicitis. They underwent an appendectomy on 05/04/2024. Orthopedics was consulted for evaluation of the left total knee replacement. Past Medical History Past Medical History: Hyperlipidemia, Osteoarthritis (OA) Additional Past Medical History / Comment(s): varicose veins, History of Any Multi-Drug Resistant Organisms: None Reported Past Surgical History: Orthopedic Surgery Additional Past Surgical History / Comment(s): left knee 04/19/24 Past Anesthesia/Blood Transfusion Reactions: Motion Sickness Additional Past Anesthesia/Blood Transfusion Reaction / Comm: never had anesthesia Past Psychological History: Anxiety Past Alcohol Use History: None Reported Past Drug Use History: None Reported - Past Family History Mother Family Medical History: Cancer Father Family Medical History: Myocardial Infarction ([place]) Medications and Allergies Home Medications Medication Instructions Recorded Confirmed Type Pravastatin Sodium [Pravachol] 40 mg PO HS 03/29/19 05/03/24 History metFORMIN HCL [Glucophage] 500 mg PO BID 05/03/24 05/03/24 History polyethylene glycoL 3350 [Miralax] 17 gm PO DAILY PRN 05/03/24 05/03/24 History Allergies Allergy/AdvReac Type Severity Reaction Status Date / Time No Known Allergies Allergy Verified 05/03/24 11:39 Physical Examination A focused exam of the left knee was conducted at bedside on 05/04/2024. Patient is resting in bed, awake and alert. On exam there is a healing incision over the left knee consistent with a previous total left knee replacement. The incision is free of dehiscence or erythema. There is mild generalized swelling of the left knee. A femoral nerve function is intact. Patient is able to dorsiflex and plantarflex the ankle and toes. The left foot is well-perfused. Results - Labs Labs: Abnormal Lab Results - Last 24 Hours (Table) 05/04/24 05/04/24 Range/Units 05:29 05:29 WBC 14.1 H (3.8-10.6) k/uL RBC 3.78 L (4.30-5.90) m/uL Hgb 11.3 L (13.0-17.5) gm/dL Hct 36.0 L (39.0-53.0) % Neutrophils # 11.2 H (1.3-7.7) k/uL Sodium 134 L (137-145) mmol/L Carbon Dioxide 18 L (22-30) mmol/L BUN 25 H (9-20) mg/dL Creatinine 1.37 H (0.66-1.25) mg/dL Glucose 101 H (74-99) mg/dL Total Bilirubin 1.7 H (0.2-1.3) mg/dL Total Protein 6.1 L (6.3-8.2) g/dL Albumin 3.2 L (3.5-5.0) g/dL H & H 05/03/24 05/04/24 Range/Units 12:08 05:29 Hgb 13.4 11.3 L (13.0-17.5) gm/dL Hct 42.0 36.0 L (39.0-53.0) % Result Diagrams: 05/04/24 05:29 05/04/24 05:29 Assessment and Plan Assessment: Status post appendectomy Status post left total knee arthroplasty Plan: Work with physical therapy for range of motion when cleared by general surgery. Weight-bear as tolerated with a walker. Do not soak incision. After discharge follow-up with Dr. Hu Olivia in office. From an orthopedic standpoint the patient is stable at this time, and we will sign off. Please call with any questions.
[2024-05-04] MEDS: GABAPENTIN 300 MG CAP PO SCH (17:16)
--- NOTE | 2024-05-05 07:59 | P.OP ---
Date of Procedure: 05/05/24 Description of Procedure: SURGEON: BRET SCHUMACHER MD Preoperative Diagnosis: 1. Acute appendicitis 2. Leukocytosis 3. Cholelithiasis 4. Lactic acidosis 5. Renal impairment due to acute kidney injury 6. Status post left knee replacement Postoperative Diagnosis: 1. Gangrenous ruptured appendicitis 2. Leukocytosis 3. Cholelithiasis chronic cholecystitis 4. Lactic acidosis 5. Renal impairment due to acute kidney injury 6. Status post left knee replacement Procedure(s) Performed: 1. Robotic-assisted daVinci Xi laparoscopic lysis of adhesions over 30 minutes 2. Robotic-assisted daVinci Xi laparoscopic appendectomy Anesthesia: GETA, local Estimated Blood Loss (ml): 10 Pathology: other (appendix, aerobic and anerobic culture of ruptured appendicitis) Condition: stable Disposition: floor Operative Findings: 1. Gangrenous ruptured purulent appendicitis including tip and body of appendix 2. Staple line hemostatic 3. Thickened gallbladder wall consistent with chronic cholecystitis, asymptomatic 4. Highly redundant sigmoid colon 5. Multiple large appendicolith with complete necrosis of body of appendix 6. Abdominal wall adhesions of the right lower quadrant and right upper quadrant resected using vessel sealing INDICATIONS: The patient is a 68-year-old male who presents with acute appendicitis after 5 days of generalized malaise. Patient came in with moderate dehydration including acute kidney injury and recent left knee replacement less than 2 weeks ago. Preoperative assessment including IV fluid hydration and DVT assessment was performed. Benefits and risks, including infection, open surgery, and possibility for additional surgery was discussed at length. Informed consent was obtained. All questions of the patient and family were answered. DESCRIPTION: The patient was transferred to the operating room and placed in supine position. The abdomen was then prepped and draped in standard sterile fashion as Ioban was placed along the abdomen to minimize any contamination of skin floor. After a timeout protocol was performed, attention was then brought to the left upper quadrant whereby a 0 degree 5 mm laparoscopic trocar entry was performed. The abdominal cavity was entered and insufflated to 15 mmHg pressure, which was tolerated well. Diagnostic laparoscopy demonstrated no injury to bowel, viscera or mesentery. Adhesions were confirmed of the right lower quadrant of omentum, small bowel to the abdominal wall. Localized abscess was found. Next a robotic 12-mm trocar was placed along the left upper quadrant after exchanging the 5 mm trocar. A 8 mm port was placed along the left lower quadrant and another 8-mm port left lateral abdominal wall. Ports were placed 10 cm apart from each other including 15-20 cm away from the target anatomy of the right pelvis. The patient was then placed in Trendelenburg position, at least 7 and right side up at least 7. The robotic da Man XI system was primed and docked from the left side of the patient. Using atraumatic graspers and vessel sealer, the robotic system was docked and primed as described. Instruments were interchanged by the assistant manager pt including graspers, robotic stapler and vessel sealer. Next, attention was brought to identify the cecum. Clear peritoneal fluid was found within the pelvis. Adhesions along the right lower quadrant and right lateral abdominal wall was found and taken down using vessel sealer. Base of the cecum was dissected with blunt dissection until immediate rupture of the appendix was identified. The wall of the appendix involving the mid body was completely necrotic. The base of the appendix was identified and isolated after lysis of adhesions over 30 minutes. Robotic 45 mm blue/green robotic staple loads were fired along the base of the appendix without encroachment of the ileocecal valve. Moderate edematous changes was found along the terminal ileum from reactive inflammation. The staple line was hemostatic and viable. Large appendicolith with stool over 2 cm was still within the appendix. Localized liquid stools was irrigated and cleansed until clear using 4 x 4's. The sigmoid colon was found to be highly redundant with left and right pelvic adhesions undisturbed. Assessment of the gallbladder demonstrate thickened gallbladder wall consistent with chronic appendicitis however undisturbed. The appendix was placed into a 10 mm Endo Catch bag. Abdomen was irrigated with 250 cc normal saline completely dry prior to the end of the procedure. As the abdomen and staple line was completely dry, drainage catheter was avoided. Paracolic flat was placed along the bed of the appendectomy site. The robot was undocked. I re-scrubbed into the case. The specimen was removed from the abdominal cavity with an Endo Catch bag through the 12 mm trocar at the left upper quadrant after wide excision due to the large size of the appendix. All instruments and pneumoperitoneum were evacuated from the abdominal cavity. Local anesthetic was infiltrated to all wounds for postop analgesia. All incisions were also cleansed with diluted hydrogen peroxide. An Optifoam surgical dressing was placed over the left upper quadrant incision, appendix extraction site. The patient had tolerated the procedure well. The patient was extubated successfully. The patient was transferred to the postanesthesia care unit in stable condition. Intraoperative findings and images were shared with the patient's family. Due to the patient's recent left knee replacement including perforated appendicitis, inpatient hospitalization with extended IV antibiotics were described.
[2024-05-05 09:21] LABS: Basophils # (A) 0.02 X 10*3/uL (0.00-0.10); Basophils % (A) 0.2 %; Eosinophils # (A) 0 X 10*3/uL (0.04-0.35); Eosinophils % (A) 0 %; HCT 35.9 % (39.6-50.0); HGB 11.6 g/dL (13.0-17.0); Lymphocytes # (A) 1.02 X 10*3/uL (0.90-5.00); Lymphocytes % (A) 8.4 %; MCH 30.3 pg (27.0-32.0); MCHC 32.3 g/dL (32.0-37.0); MCV 93.7 FL (80.0-97.0); Mean Platelet Volume 9.9 FL (9.5-12.2); Monocytes % (A) 7.4 %; NRBC Per 100 WBC 0 X 10*3/uL (0.00-0.01); Neutrophils # (A) 10.13 X 10*3/uL (1.80-7.70); Neutrophils % (A) 83.6 %; Platelet Count 422 X 10*3/uL (140-440); RBC 3.83 X 10*6/uL (4.40-5.60); RDW 13.6 % (11.5-14.5); WBC 12.12 X 10*3/uL (4.50-10.00)
[2024-05-05] MEDS: ENOXAPARIN 40 MG/0.4 ML SYRINGE SQ SCH (09:22)
[2024-05-05 09:32] LABS: ALT 31 U/L (10-49); AST 30 U/L (14-35); Albumin 3.2 g/dL (3.8-4.9); Albumin/Globulin Ratio 1.14 Ratio (1.60-3.17); Alkaline Phosphatase 98 U/L (41-126); BUN/Creat Ratio 13.24 Ratio (12.00-20.00); Blood Urea Nitrogen 22.5 mg/dL (9.0-27.0); Calcium 8.3 mg/dL (8.7-10.3); Chloride 104 mmol/L (96-109); Globulin 2.8 g/dL (1.6-3.3); Glucose 122 mg/dL (70-110); Potassium 4.7 mmol/L (3.5-5.5); Sodium 136 mmol/L (135-145); Total Bilirubin 1.3 mg/dL (0.3-1.2)
--- NOTE | 2024-05-05 12:23 | P.PN ---
Subjective Patient is a pleasant 68 years old male with past medical history of multiple medical problems Presents because of abdominal pain for a few days [place] like mild event patient was sitting in chair not an distress. Pain states is nonradiating nonspecific in quality no precipitating or relieving factors. Patient reports no vomiting. Patient usually constipated but he had loose bowel movements earlier today No other specific complaint and is just urine. No headache dizziness weakness or confusion He denies smoking alcohol or illicit drugs His PCP is Dr. Castillo Vital stable and is afebrile He has mild leukocytosis at 17,000, creatinine at baseline 1.5 as he has CKD stage III He has some elevated lactic acid 2.3 came back to reference range however he is continued on normal saline at 130 mL/h EKG showing sinus rhythm at [address]-T changes CT of the abdomen and pelvis showing gallstones with no hydronephrosis but dilated complex appendix with 22 x 12 mm of plebolith 05/05/24 Patient is status post robotic assisted laparoscopic lysis of adhesions and appendectomy. Today is postop day #1 Patient is fully awake and oriented at baseline, no distress and he looks relaxed. He has some pain at the surgical site which is expected No vomiting he is tolerating liquid diet No chest pain or dyspnea. He is also getting normal saline at 130 mL/h. His creatinine is 1.7 from 1.3 yesterday which is still within the range of his chronic kidney disease stage III Leukocytosis improving, down to 12,000 He has low-grade fever. He is on Zosyn. Review of systems CONSTITUTIONAL: No fever, no malaise, no fatigue. HEENT: No recent visual problems or hearing problems. Denied any sore throat. CARDIOVASCULAR: No orthopnea, PND, no palpitations, no syncope. HEMATOLOGICAL: Denies any bleeding or petechiae. GENITOURINARY: Denies any burning micturition, frequency, or urgency. MUSCULOSKELETAL/RHEUMATOLOGICAL: Denies any joint pain, swelling, or any muscle pain. ENDOCRINE: Denies any polyuria or polydipsia. Active Medications Generic Name Dose Route Start Last Admin Trade Name Freq PRN Reason Stop Dose Admin Enoxaparin Sodium 40 mg 05/05/24 09:00 05/05/24 09:22 Enoxaparin 40 Mg/0.4 Ml Syringe SQ 40 mg DAILY CYNTHIA Administration Gabapentin 600 mg 05/04/24 17:15 05/05/24 09:22 Gabapentin 300 Mg Cap PO 600 mg TID CYNTHIA Administration Hydromorphone HCl 0.5 mg 05/03/24 13:38 Hydromorphone 0.5 Mg/0.5 Ml Syringe IVP Q3HR PRN Moderate Pain (Scale 4 to 6) Hydromorphone HCl 1 mg 05/04/24 13:53 05/05/24 09:22 Hydromorphone 1 Mg/Ml 1 Ml Syringe IVP 1 mg Q4HR PRN Administration Severe Pain (Scale 7 to 10) Piperacillin Sod/Tazobactam 100 mls @ 25 mls/hr 05/03/24 16:00 05/05/24 09:22 Sod 3.375 gm/ Sodium Chloride IVPB 25 mls/hr Q8HR CYNTHIA Administration Protocol Sodium Chloride 1,000 mls @ 130 mls/hr 05/03/24 13:45 05/05/24 12:07 Saline 0.9% IV 130 mls/hr .Q7H42M CYNTHIA Administration Metronidazole 500 mg/ IV 100 mls @ 100 mls/hr 05/03/24 16:00 05/05/24 09:23 Solution IVPB 100 mls/hr Q8HR CYNTHIA Administration Protocol Morphine Sulfate 2 mg 05/03/24 18:30 05/04/24 20:47 Morphine Sulfate 2 Mg/Ml Syringe IVP 2 mg Q4HR PRN Administration Pain/Discomfort Naloxone HCl 0.2 mg 05/03/24 13:38 Naloxone 0.4 Mg/Ml 1 Ml Vial IV Q2M PRN Opioid Reversal Ondansetron HCl 4 mg 05/03/24 13:38 05/04/24 10:47 Ondansetron 4 Mg/2 Ml Vial IVP 4 mg Q8HR PRN Administration Nausea And Vomiting Objective - Vital Signs Vital signs: Vital Signs Temp 99.7 F H 05/04/24 16:55 Pulse 94 05/04/24 16:55 Resp 18 05/04/24 14:30 BP 136/75 05/04/24 16:55 Pulse Ox 93 L 05/04/24 16:55 FiO2 Intake & Output 05/04/24 05/04/24 05/05/24 06:59 18:59 06:59 Intake Total 4000 Balance 4000 Weight 95.708 kg Intake: IV 1900 Intake, IV Titration 2000 Amount ACETAMINOPHEN IV (For NPO 100 ) 1,000 mg In Empty Bag 1 bag @ 400 mls/hr IVPB ONCE ONE Rx#:[id number] Piperacillin-Tazobactam 3 200 .375 gm In Sodium Chloride 0.9% 100 ml @ 25 mls/hr IVPB Q8HR [facility] Rx# :[id number] Sodium Chloride 0.9% 1, 1500 000 ml @ 130 mls/hr IV . Q7H42M [facility] Rx#:[id number] metroNIDAZOLE-NS PMX 500 200 mg In Saline 1 100ml.bag @ 100 mls/hr IVPB Q8HR [facility] Rx#:[id number] Oral 100 Other: Voiding Method Toilet # Voids 2 1 - Exam GENERAL: The patient is alert and oriented x3, not in any acute distress. Well developed, well nourished. HEENT: Pupils are round and equally reacting to light. EOMI. No scleral icterus. No conjunctival pallor. Normocephalic, atraumatic. No pharyngeal erythema. No thyromegaly. CARDIOVASCULAR: S1 and S2 present. No murmurs, rubs, or gallops. PULMONARY: Chest is clear to auscultation, no wheezing , no crackles. -ABDOMEN: Soft, right lower quadrant tenderness, nondistended, normoactive bowel sounds. No palpable organomegaly. MUSCULOSKELETAL: No joint swelling or deformity. EXTREMITIES: No cyanosis, clubbing, or pedal edema. NEUROLOGICAL: Gross neurological examination did not reveal any focal deficits. SKIN: No rashes. no petechiae. - Labs CBC & Chem 7: 05/05/24 05:51 05/05/24 05:51 Labs: Abnormal Lab Results - Last 24 Hours (Table) 05/04/24 05/04/24 Range/Units 05:29 05:29 WBC 14.1 H (3.8-10.6) k/uL RBC 3.78 L (4.30-5.90) m/uL Hgb 11.3 L (13.0-17.5) gm/dL Hct 36.0 L (39.0-53.0) % Neutrophils # 11.2 H (1.3-7.7) k/uL Sodium 134 L (137-145) mmol/L Carbon Dioxide 18 L (22-30) mmol/L BUN 25 H (9-20) mg/dL Creatinine 1.37 H (0.66-1.25) mg/dL Glucose 101 H (74-99) mg/dL Total Bilirubin 1.7 H (0.2-1.3) mg/dL Total Protein 6.1 L (6.3-8.2) g/dL Albumin 3.2 L (3.5-5.0) g/dL Assessment and Plan Assessment: acute appendicitis with dilated complex appendix with 22 x 12 mm of plebolith. Status post laparoscopic appendectomy on 05/04 Sepsis secondary to above with elevated white cell count and lactic acid CKD stage III Reactive ileitis Gallstones with no evidence with acute cholecystitis. Recent history of left knee replacement, not active issue and wound is healing. Patient saw his orthopedic prior to hospitalization and it was fine Plan: Continue with bowel rest IV fluids Pain medication Surgical team consult Continue with Zosyn Surgery team following closely Hold metformin and continue with insulin sliding scale Labs and medication were reviewed.. Continue same treatment. Continue with symptomatic treatment. Resume home medication. Monitor labs and vitals. DVT and GI prophylaxis. Further recommendations as per clinical course of the patient DVT prophylaxis: Subcutaneous he Lovenox GI Prophylaxis: Pepcid PT/OT: Pending Prognosis is guarded
[2024-05-05] MEDS: ACETAMINOPHEN TAB 500 MG TAB PO PRN (15:29)
--- NOTE | 2024-05-05 18:36 | P.PN ---
Progress Note - Text Progress Note Date: 05/05/24 CHIEF COMPLAINT: Abdominal Pain HISTORY OF PRESENT ILLNESS: Patient having nausea. Patient had fever of 101.6 and Tylenol was given ROS: No fevers or chills. No new chest pain. +Abdominal Pain , PHYSICAL EXAM: VITAL SIGNS: Reviewed CONSTITUTIONAL: Well developed and in no acute distress. Abdomen-soft, mildly distended, incisions C/D/I. Appropriate TTP CLINICAL LABS: Reviewed. ASSESSMENT: 1. POD #1 Robotic Appendectomy and PAWEL for perforated Appendicitis PLAN: 1. Continue CLD 2. Continue Antibiotic Coverage 3. Tylenol added for fevers 4. Pain and Nausea Control
--- NOTE | 2024-05-05 22:49 | P.CONS ---
History of Present Illness - Reason for Consult Consult date: 05/05/24 Ruptured appendicitis with localized abscess Requesting physician: eBrnice Lee - Chief Complaint Abdominal pain x 2 days - History of Present Illness Patient is a 68-year-old male past medical history significant for hyperlipidemia osteoarthritis presenting to the hospital for evaluation of abdominal discomfort and hematuria the patient pain has been going on about 2 days before presentation to the hospital pain has been mostly on the right side abdominal area describing it to be sharp moderate to severe intensity by the time he was in the hospital did have some nausea but no vomiting and no constipation with dizziness the patient has been evaluated on presentation to the hospital the patient was afebrile he did have a low-grade fever 100.2 this morning patient was not tachycardic hypotensive or hypoxic did have a white count of 17.2 with a left shift BUN and creatinine has been mildly elevated liver enzymes are normal urine has been negative patient did have a abdominal pelvis CT acute uncomplicated appendicitis with large appendicolith measuring up to 22 X12 millimeter no evidence of perforation or localized abscess patient was taken to the OR patient was noticed to have gangrenous ruptured appendicitis status post laparoscopic lysis of additions and appendectomy abdominal cultures obtained patient was started on Zosyn infectious disease was consulted today for further management of antibiotic therapy Review of Systems Positive point and negatives has been mentioned in the HPI, complete review of systems was performed and all other systems are negative Past Medical History Past Medical History: Hyperlipidemia, Osteoarthritis (OA) Additional Past Medical History / Comment(s): varicose veins, History of Any Multi-Drug Resistant Organisms: None Reported Past Surgical History: Orthopedic Surgery Additional Past Surgical History / Comment(s): left knee 04/19/24 Past Anesthesia/Blood Transfusion Reactions: Motion Sickness Additional Past Anesthesia/Blood Transfusion Reaction / Comm: never had anesthesia Past Psychological History: Anxiety Past Alcohol Use History: None Reported Past Drug Use History: None Reported - Past Family History Mother Family Medical History: Cancer Father Family Medical History: Myocardial Infarction ([place]) Medications and Allergies Home Medications Medication Instructions Recorded Confirmed Type Pravastatin Sodium [Pravachol] 40 mg PO HS 03/29/19 05/03/24 History metFORMIN HCL [Glucophage] 500 mg PO BID 05/03/24 05/03/24 History polyethylene glycoL 3350 [Miralax] 17 gm PO DAILY PRN 05/03/24 05/03/24 History Allergies Allergy/AdvReac Type Severity Reaction Status Date / Time No Known Allergies Allergy Verified 05/03/24 11:39 Physical Exam Vitals: Vital Signs Temp Pulse Resp BP Pulse Ox 05/05/24 07:30 99.2 F 05/05/24 07:20 100.2 F H 97 19 123/74 93 L 05/05/24 04:57 95 05/05/24 02:00 98.9 F 98 112/67 88 L 05/04/24 20:00 98.5 F 96 17 117/69 89 L 05/04/24 16:55 99.7 F H 94 136/75 93 L 05/04/24 16:40 91 142/76 93 L 05/04/24 16:25 93 139/77 93 L 05/04/24 16:10 95 138/77 92 L 05/04/24 15:55 95 137/76 92 L 05/04/24 15:40 89 134/75 92 L 05/04/24 15:25 89 133/73 91 L 05/04/24 15:10 87 137/74 92 L 05/04/24 14:55 87 144/78 91 L 05/04/24 14:30 85 18 120/56 92 L 05/04/24 14:15 83 18 132/55 98 05/04/24 14:00 98.7 F 88 18 134/75 91 L 05/04/24 13:45 84 18 129/57 97 05/04/24 13:30 98 F 88 18 151/58 97 Intake and Output 05/04/24 05/05/24 05/05/24 22:59 06:59 14:59 Intake Total 2100 Output Total 350 Balance 2100 -350 Intake: Intake, IV Titration 2000 Amount ACETAMINOPHEN IV (For NPO 100 ) 1,000 mg In Empty Bag 1 bag @ 400 mls/hr IVPB ONCE ONE Rx#:[id number] Piperacillin-Tazobactam 3 200 .375 gm In Sodium Chloride 0.9% 100 ml @ 25 mls/hr IVPB Q8HR [facility] Rx# :[id number] Sodium Chloride 0.9% 1, 1500 000 ml @ 130 mls/hr IV . Q7H42M [facility] Rx#:[id number] metroNIDAZOLE-NS PMX 500 200 mg In Saline 1 100ml.bag @ 100 mls/hr IVPB Q8HR [facility] Rx#:[id number] Oral 100 Output: Urine 350 Other: Voiding Method Urinal # Voids 1 1 GENERAL DESCRIPTION: Elderly male lying in bed, no distress. No tachypnea or accessory muscle of respiration use. HEENT: Shows Pallor , no scleral icterus. Oral mucous membrane is dry. No pharyngeal erythema or thrush NECK: Trachea central, no thyromegaly. LUNGS: Unlabored breathing. Clear to auscultation anteriorly. No wheeze or crackle. HEART: S1, S2, regular rate and rhythm. No loud murmur ABDOMEN: Soft, mild distention and tenderness EXTREMITIES: No edema of feet. SKIN: No rash, no masses palpable. NEUROLOGICAL: The patient is awake, alert, oriented x3, mood and affect normal. Results CBC & Chem 7: 05/05/24 05:51 05/05/24 05:51 Labs: Abnormal Lab Results - Last 24 Hours (Table) 05/05/24 05/05/24 Range/Units 05:51 05:51 WBC 12.12 H (4.50-10.00) X 10*3/uL RBC 3.83 L (4.40-5.60) X 10*6/uL Hgb 11.6 L (13.0-17.0) g/dL Hct 35.9 L (39.6-50.0) % Immature Gran # 0.05 H (0.00-0.04) X 10*3/uL Neutrophils # 10.13 H (1.80-7.70) X 10*3/uL Eosinophils # 0 L (0.04-0.35) X 10*3/uL Carbon Dioxide 20.0 L (21.6-31.8) mmol/L Creatinine 1.7 H (0.6-1.5) mg/dL Est GFR (CKD-EPI) 44 L (>=60) Glucose 122 H (70-110) mg/dL Calcium 8.3 L (8.7-10.3) mg/dL Total Bilirubin 1.3 H (0.3-1.2) mg/dL Total Protein 6.0 L (6.2-8.2) g/dL Albumin 3.2 L (3.8-4.9) g/dL Albumin/Globulin Ratio 1.14 L (1.60-3.17) Ratio Microbiology - Last 24 Hours (Table) 05/04/24 12:35 Gram Stain - Preliminary Appendix Wound Culture - Preliminary Assessment and Plan (1) Intra-abdominal abscess Current Visit: Yes Status: Acute Code(s): K65.1 - PERITONEAL ABSCESS SNOMED Code(s): 84636612 (2) Leukocytosis Current Visit: Yes Status: Acute Code(s): D72.829 - ELEVATED WHITE BLOOD CELL COUNT, UNSPECIFIED SNOMED Code(s): 793594993 (3) Acute appendicitis Current Visit: Yes Status: Acute Code(s): K35.80 - UNSPECIFIED ACUTE APPENDICITIS SNOMED Code(s): 45761124 Plan: 1patient presented to hospital with abdominal pain did have elevated white count patient has been diagnosed with acute gangrenous appendicitis status post laparoscopic laceration appendectomy we will need to cover for the enteric gram- negative both aerobic anaerobes to be the likely pathogen 2-Zosyn 3.375 g every 8 hour. should provide adequate antibiotic coverage while waiting for the culture to finalize We will follow on clinical condition and cultures to further adjust medication if needed Thank you for this consultation we will follow the patient along with you Dictation was produced using [employer] dictation software. please excuse any grammatical, word or spelling errors. Time with Patient: Greater than 30
[2024-05-06] MEDS: HYDROmorphone 0.5 MG/0.5 ML SYRINGE IVP PRN (03:27)
--- NOTE | 2024-05-06 08:51 | P.PN ---
Subjective Progress Note Date: 05/06/24 CHIEF COMPLAINT: Abdominal pain HISTORY OF PRESENT ILLNESS: The patient is a 68 year old male status post robotic appendectomy with features of gangrenous ruptured appendicitis. He has been having fevers, temperature 102. He had a bowel movement today. No increased abdominal pain. Patient is having physical therapy and has been seen by his orthopedic team. Abdominal pain is tolerable and improved since admission. No nausea and vomiting. No blood in stools but reports diarrhea. Tolerating clear liquid. REVIEW OF ORGAN SYSTEMS: CONSTITUTIONAL: Has fevers 102 F EYES: Denies any trouble with vision. Wears glasses. HEENT: No difficulties with hearing. No nosebleeds. No difficulty swallowing. PHYSICAL EXAM: VITALS: Reviewed CONSTITUTIONAL: Well developed and in no acute distress. EYES: Conjuctivae without sclera icterus. Extraocular movements grossly intact. HEAD, EARS, NOSE, THROAT: Moist buccal mucosa. Head is atraumatic, normocephalic. Hears conversational speech. No nasal drainage. RESPIRATORY: Non-labored respirations and equal bilateral excursions. No gross wheezes. CARDIOVASCULAR: Palpable 2+ radial pulses. ABDOMEN: Incision intact. No peritonitis. MUSCULOSKELETAL: Swelling along the left knee. Well-healed incision. SKIN: Warm and well perfused with good skin turgor. NEUROLOGIC: Cranial nerves II through XII grossly intact. No focal or lateralizing signs. PSYCH: Appropriate affect. Alert and oriented to person, place and time. Displays appropriate insight. CLINCAL LABS: Reviewed. WBC declined from 17,000-14,000, trending down 12,000. No new labs today. Creatinine elevation 1.37-1.7, acute kidney injury ASSESSMENT: 1. Abdominal pain due to appendicitis 2. Leukocytosis 3. Cholelithiasis 4. Lactic acidosis 5. Renal impairment 6. Status post left knee replacement 7. Anemia 8. Dehydration 9. Sepsis due to appendicitis PLAN: 1. Patient's creatinine has elevated with pre-existing chronic kidney disease. Consultation to nephrology is placed. 2. Patient has localized ruptured appendicitis however in the presence of sepsis, consultation to infectious disease with antibiotic management. 3. Physical therapy for left knee replacement. 4. Inpatient hospitalization for sepsis and ruptured appendicitis including acute kidney injury Objective - Vital Signs Vital signs: Vital Signs Temp 98.1 F 05/06/24 07:20 Pulse 84 05/06/24 07:20 Resp 20 05/06/24 07:47 BP 124/76 05/06/24 07:20 Pulse Ox 100 05/06/24 07:20 FiO2 Intake & Output 05/05/24 05/06/24 05/06/24 18:59 06:59 18:59 Intake Total 120 240 Output Total 920 Balance 120 -680 Intake: Oral 120 240 Output: Urine 920 Other: Voiding Method Urinal # Voids 2 1 # Bowel Movements 1 - Labs CBC & Chem 7: 05/05/24 05:51 05/05/24 05:51 Labs: Abnormal Lab Results - Last 24 Hours (Table) 05/05/24 05/05/24 Range/Units 05:51 05:51 WBC 12.12 H (4.50-10.00) X 10*3/uL RBC 3.83 L (4.40-5.60) X 10*6/uL Hgb 11.6 L (13.0-17.0) g/dL Hct 35.9 L (39.6-50.0) % Immature Gran # 0.05 H (0.00-0.04) X 10*3/uL Neutrophils # 10.13 H (1.80-7.70) X 10*3/uL Eosinophils # 0 L (0.04-0.35) X 10*3/uL Carbon Dioxide 20.0 L (21.6-31.8) mmol/L Creatinine 1.7 H (0.6-1.5) mg/dL Est GFR (CKD-EPI) 44 L (>=60) Glucose 122 H (70-110) mg/dL Calcium 8.3 L (8.7-10.3) mg/dL Total Bilirubin 1.3 H (0.3-1.2) mg/dL Total Protein 6.0 L (6.2-8.2) g/dL Albumin 3.2 L (3.8-4.9) g/dL Albumin/Globulin Ratio 1.14 L (1.60-3.17) Ratio Microbiology - Last 24 Hours (Table) 05/03/24 13:55 Blood Culture - Preliminary Blood 05/03/24 13:31 Blood Culture - Preliminary Blood 05/04/24 12:35 Gram Stain - Preliminary Appendix Wound Culture - Preliminary
[2024-05-06 10:58] LABS: ALT 51 U/L (4-49); AST 170 U/L (17-59); African American GFR (CKD) 71 (>60 ml/min/1.73 sqM); Albumin 2.6 g/dL (3.5-5.0); Albumin/Globulin Ratio 0.9; Alkaline Phosphatase 76 U/L (38-126); Anion Gap 5 mmol/L; Blood Urea Nitrogen 19 mg/dL (9-20); Calcium 8.1 mg/dL (8.4-10.2); Carbon Dioxide 23 mmol/L (22-30); Chloride 107 mmol/L (98-107); Globulin 2.9 g/dL; Glucose 120 mg/dL (74-99); Non-African American GFR(CKD) 61 (>60 ml/min/1.73 sqM); Potassium 4.1 mmol/L (3.5-5.1); Sodium 135 mmol/L (137-145); Total Bilirubin 0.8 mg/dL (0.2-1.3); Total Protein 5.5 g/dL (6.3-8.2)
[2024-05-06 11:00] LABS: Basophils % (A) 0 %; Eosinophils % (A) 0 %; HCT 33.8 % (39.0-53.0); HGB 10.3 gm/dL (13.0-17.5); Hypochromasia Slight; Lymphocytes # (A) 1.1 k/uL (1.0-4.8); Lymphocytes % (A) 7 %; MCH 30.1 pg (25.0-35.0); MCHC 30.6 g/dL (31.0-37.0); MCV 98.2 fL (80.0-100.0); Mean Platelet Volume 7.7; Monocytes # (A) 0.6 k/uL (0-1.0); Monocytes % (A) 4 %; Neutrophils # (A) 12.6 k/uL (1.3-7.7); Neutrophils % (A) 86 %; Platelet Count 372 k/uL (150-450); RBC 3.44 m/uL (4.30-5.90); RDW 13.2 % (11.5-15.5); WBC 14.6 k/uL (3.8-10.6)
--- NOTE | 2024-05-06 12:45 | P.NPCON ---
History of Present Illness - Reason for Consult acute renal failure - History of Present Illness Patient is a 68-year-old male with history ofosteoarthritis and hyperlipidemia. Status post left knee arthroplasty on 04/19/2024. Patient is admitted to the hospital with complaints of abdominal pain. He was noted to have acute ruptured gangrenous appendicitis and is status post laparoscopic appendectomy and laparoscopic lysis of adhesions on 05/05/2024. Patient denies any previous history of kidney diseases. Serum creatinine was 1.5 on admission and decreased to 1.36 and subsequently increased to 1.7 yesterday. Patient is currently maintained on IV fluids and serum creatinine has decreased to 1.2 today. computed tomography scan of the abdomen on 05/03/2024 does not show any obstructive uropathy. Review of Systems as per HPI Past Medical History Past Medical History: Hyperlipidemia, Osteoarthritis (OA) Additional Past Medical History / Comment(s): varicose veins, History of Any Multi-Drug Resistant Organisms: None Reported Past Surgical History: Orthopedic Surgery Additional Past Surgical History / Comment(s): left knee 04/19/24 Past Anesthesia/Blood Transfusion Reactions: Motion Sickness Additional Past Anesthesia/Blood Transfusion Reaction / Comment(s): never had anesthesia Past Psychological History: Anxiety Past Alcohol Use History: None Reported Past Drug Use History: None Reported - Past Family History Mother Family Medical History: Cancer Father Family Medical History: Myocardial Infarction ([place]) Medications and Allergies Home Medications Medication Instructions Recorded Confirmed Type Pravastatin Sodium [Pravachol] 40 mg PO HS 03/29/19 05/03/24 History metFORMIN HCL [Glucophage] 500 mg PO BID 05/03/24 05/03/24 History polyethylene glycoL 3350 [Miralax] 17 gm PO DAILY PRN 05/03/24 05/03/24 History Allergies Allergy/AdvReac Type Severity Reaction Status Date / Time No Known Allergies Allergy Verified 05/03/24 11:39 Physical Exam Vitals: Vital Signs Temp Pulse Resp BP Pulse Ox 05/06/24 07:47 20 05/06/24 07:20 98.1 F 84 18 124/76 100 05/06/24 03:35 98.9 F 05/06/24 01:50 102.9 F H 109 H 20 120/73 91 L 05/05/24 19:54 98.3 F 94 18 125/74 95 05/05/24 17:40 98.7 F 05/05/24 16:40 100.1 F H 05/05/24 15:15 101.6 F H 95 17 117/70 94 L Intake and Output 05/05/24 05/06/24 05/06/24 22:59 06:59 14:59 Intake Total 120 240 Output Total 920 Balance 120 -680 Intake: Oral 120 240 Output: Urine 920 Other: Voiding Method Urinal # Voids 2 1 # Bowel Movements 1 patient is awake comfortable. No acute distress. Examination of the heart S1 and S2 Examination of the lungs bilateral breath sounds are heard Abdomen is soft, distended. Mild tenderness noted. Examination of lower extremity shows no edema [employer] exam grossly intact Incision on left knee is intact Results - Lab Results Most recent lab results Calcium 8.1 mg/dL (8.4-10.2) L 05/06/24 10:02 05/06/24 10:02 05/06/24 10:02 Assessment and Plan Assessment: 1. Acute kidney injury, ATN currently nonoliguric and improved. Patient is maintained on IV fluids. Rule out urine retention. UA shows trace protein and blood. Computed tomography scan of the abdomen does not show any evidence of obstructive uropathy. 2. Ruptured gangrenous appendicitis status post laparoscopic appendectomy on 05/05/2024 with significant lysis of adhesions. 3. Status post recent left knee arthroplasty on 04/19/2024 4. Chronic kidney disease stage IIIa, with baseline creatinine around 1.5 mg/dL. Possibly diabetic kidney disease. Plan: continue with IV fluids. Check post void residual. Repeat labs in a.m. Avoid use of NSAIDs. Consider adding JOHAN inhibitor's down the road as outpatient. thank you for the consultation. We will continue to follow the patient with you during his hospitalization.
--- NOTE | 2024-05-06 14:24 | P.PN ---
Progress Note - Text Progress Note Date: 05/06/24 Patient was at bedside with additional questions. Patient does report mild right lower quadrant abdominal pain. Denies incisional pain of the left upper abdomen. Will monitor. Will likely need repeat CT scan prior to discharge. Risk of intra-abdominal abscesses was also discussed with patient and at bedside. Additional studies pending clinical course. Continue with liquid diet.
--- NOTE | 2024-05-06 14:56 | P.PN ---
Subjective Progress Note Date: 05/06/24 Principal diagnosis: Reason for follow-up is gangrenous appendicitis and peritonitis Patient is a 68-year-old male past medical history significant for hyperlipidemia osteoarthritis presenting to the hospital for evaluation of abdominal discomfort patient has been diagnosed with a gangrenous appendicitis status post laparoscopic appendectomy and drainage of the abscess. On today's evaluation that is 05/06/2024, patient did spike a fever of 102.9 F at 1:50 AM, the patient has been afebrile since then, patient is breathing comfortably and is currently on room air, patient denies having any significant cough no chest pain shortness of breath, patient denies nausea vomiting still some abdominal discomfort and distention mention he did have small bowel movement. Patient white count started to 14.6 creatinine is 1.22 abdominal cultures currently pending Objective - Vital Signs Vital signs: Vital Signs Temp 98.1 F 05/06/24 07:20 Pulse 84 05/06/24 07:20 Resp 20 05/06/24 07:47 BP 124/76 05/06/24 07:20 Pulse Ox 100 05/06/24 07:20 FiO2 Intake & Output 05/05/24 05/06/24 05/06/24 18:59 06:59 18:59 Intake Total 120 240 Output Total 920 Balance 120 -680 Intake: Oral 120 240 Output: Urine 920 Other: Voiding Method Urinal # Voids 2 1 # Bowel Movements 1 - Exam GENERAL DESCRIPTION: An elderly male lying in bed in no distress RESPIRATORY SYSTEM: Unlabored breathing , decreased breath sounds at bases HEART: S1 S2 regular rate and rhythm , ABDOMEN: Soft , mild distention and tenderness EXTREMITIES: No edema feet - Labs CBC & Chem 7: 05/06/24 10:02 05/06/24 10:02 Labs: Abnormal Lab Results - Last 24 Hours (Table) 05/06/24 05/06/24 Range/Units 10:02 10:02 WBC 14.6 H (3.8-10.6) k/uL RBC 3.44 L (4.30-5.90) m/uL Hgb 10.3 L (13.0-17.5) gm/dL Hct 33.8 L (39.0-53.0) % MCHC 30.6 L (31.0-37.0) g/dL Neutrophils # 12.6 H (1.3-7.7) k/uL Sodium 135 L (137-145) mmol/L Glucose 120 H (74-99) mg/dL Calcium 8.1 L (8.4-10.2) mg/dL AST 170 H (17-59) U/L ALT 51 H (4-49) U/L Total Protein 5.5 L (6.3-8.2) g/dL Albumin 2.6 L (3.5-5.0) g/dL Microbiology - Last 24 Hours (Table) 05/04/24 12:35 Anaerobic Culture - Preliminary Appendix 05/04/24 12:35 Gram Stain - Final Appendix Wound Culture - Final 05/03/24 13:55 Blood Culture - Preliminary Blood 05/03/24 13:31 Blood Culture - Preliminary Blood Assessment and Plan (1) Intra-abdominal abscess Current Visit: Yes Status: Acute Code(s): K65.1 - PERITONEAL ABSCESS SNOMED Code(s): 93955771 (2) Leukocytosis Current Visit: Yes Status: Acute Code(s): D72.829 - ELEVATED WHITE BLOOD CELL COUNT, UNSPECIFIED SNOMED Code(s): 106958653 (3) Acute appendicitis Current Visit: Yes Status: Acute Code(s): K35.80 - UNSPECIFIED ACUTE APPENDICITIS SNOMED Code(s): 70101632 Plan: 1patient presented to hospital with abdominal pain did have elevated white count patient has been diagnosed with acute gangrenous appendicitis status post laparoscopic laceration appendectomy we will need to cover for the enteric gram-negative both aerobic anaerobes to be the likely pathogen 2-patient did have a fever white count slightly up today that need to be monitored closely for any further fever with repeat cultures and for now continue with Zosyn 3.375 g every 8 hour and monitor clinical course closely discussed with the surgeon on the floor Dictation was produced using [employer] dictation software. please excuse any grammatical, word or spelling errors.
--- NOTE | 2024-05-06 15:09 | P.PN ---
Subjective Patient is a pleasant 68 years old male with past medical history of multiple medical problems Presents because of abdominal pain for a few days [place] like mild event patient was sitting in chair not an distress. Pain states is nonradiating nonspecific in quality no precipitating or relieving factors. Patient reports no vomiting. Patient usually constipated but he had loose bowel movements earlier today No other specific complaint and is just urine. No headache dizziness weakness or confusion He denies smoking alcohol or illicit drugs His PCP is Dr. Castillo Vital stable and is afebrile He has mild leukocytosis at 17,000, creatinine at baseline 1.5 as he has CKD stage III He has some elevated lactic acid 2.3 came back to reference range however he is continued on normal saline at 130 mL/h EKG showing sinus rhythm at [address]-T changes CT of the abdomen and pelvis showing gallstones with no hydronephrosis but dilated complex appendix with 22 x 12 mm of plebolith 05/05/24 Patient is status post robotic assisted laparoscopic lysis of adhesions and appendectomy. Today is postop day #1 Patient is fully awake and oriented at baseline, no distress and he looks relaxed. He has some pain at the surgical site which is expected No vomiting he is tolerating liquid diet No chest pain or dyspnea. He is also getting normal saline at 130 mL/h. His creatinine is 1.7 from 1.3 yesterday which is still within the range of his chronic kidney disease stage III Leukocytosis improving, down to 12,000 He has low-grade fever. He is on Zosyn. 05/06/24 Patient is status post appendectomy. Pathology pending He has some pain at the surgical site Continue on liquid diet which he tolerates well He has chronic kidney disease started on IV fluids, creatinine improving with nephrology being consulted Remains on Zosyn with ID team on the case No new complaint Objective - Vital Signs Vital signs: Vital Signs Temp 98.1 F 05/06/24 07:20 Pulse 84 05/06/24 07:20 Resp 20 05/06/24 07:47 BP 124/76 05/06/24 07:20 Pulse Ox 100 05/06/24 07:20 FiO2 Intake & Output 05/05/24 05/06/24 05/06/24 18:59 06:59 18:59 Intake Total 120 240 Output Total 920 Balance 120 -680 Intake: Oral 120 240 Output: Urine 920 Other: Voiding Method Urinal # Voids 2 1 # Bowel Movements 1 - Exam GENERAL: The patient is alert and oriented x3, not in any acute distress. Well developed, well nourished. HEENT: Pupils are round and equally reacting to light. EOMI. No scleral icterus. No conjunctival pallor. Normocephalic, atraumatic. No pharyngeal erythema. No thyromegaly. CARDIOVASCULAR: S1 and S2 present. No murmurs, rubs, or gallops. PULMONARY: Chest is clear to auscultation, no wheezing , no crackles. -ABDOMEN: Soft, right lower quadrant tenderness, nondistended, normoactive bowel sounds. No palpable organomegaly. MUSCULOSKELETAL: No joint swelling or deformity. EXTREMITIES: No cyanosis, clubbing, or pedal edema. NEUROLOGICAL: Gross neurological examination did not reveal any focal deficits. SKIN: No rashes. no petechiae. - Labs CBC & Chem 7: 05/06/24 10:02 05/06/24 10:02 Labs: Abnormal Lab Results - Last 24 Hours (Table) 05/06/24 05/06/24 Range/Units 10:02 10:02 WBC 14.6 H (3.8-10.6) k/uL RBC 3.44 L (4.30-5.90) m/uL Hgb 10.3 L (13.0-17.5) gm/dL Hct 33.8 L (39.0-53.0) % MCHC 30.6 L (31.0-37.0) g/dL Neutrophils # 12.6 H (1.3-7.7) k/uL Sodium 135 L (137-145) mmol/L Glucose 120 H (74-99) mg/dL Calcium 8.1 L (8.4-10.2) mg/dL AST 170 H (17-59) U/L ALT 51 H (4-49) U/L Total Protein 5.5 L (6.3-8.2) g/dL Albumin 2.6 L (3.5-5.0) g/dL Microbiology - Last 24 Hours (Table) 05/03/24 13:55 Blood Culture - Preliminary Blood 05/03/24 13:31 Blood Culture - Preliminary Blood 05/04/24 12:35 Anaerobic Culture - Preliminary Appendix 05/04/24 12:35 Gram Stain - Final Appendix Wound Culture - Final Assessment and Plan Assessment: acute appendicitis with dilated complex appendix with 22 x 12 mm of plebolith. Status post laparoscopic appendectomy on 05/04 Sepsis secondary to above with elevated white cell count and lactic acid CKD stage III Reactive ileitis Gallstones with no evidence with acute cholecystitis. Recent history of left knee replacement, not active issue and wound is healing. Patient saw his orthopedic prior to hospitalization and it was fine Plan: Continue with bowel rest IV fluids Pain medication Surgical team consult Continue with [facility] Surgery team following closely Hold metformin and continue with insulin sliding scale Labs and medication were reviewed.. Continue same treatment. Continue with symptomatic treatment. Resume home medication. Monitor labs and vitals. DVT and GI prophylaxis. Further recommendations as per clinical course of the patient DVT prophylaxis: Subcutaneous he Lovenox GI Prophylaxis: Pepcid PT/OT: Pending Prognosis is guarded
--- NOTE | 2024-05-07 12:11 | P.PN ---
Subjective Progress Note Date: 05/07/24 Principal diagnosis: Reason for follow-up is gangrenous appendicitis and peritonitis Patient is a 68-year-old male past medical history significant for hyperlipidemia osteoarthritis presenting to the hospital for evaluation of abdominal discomfort patient has been diagnosed with a gangrenous appendicitis status post laparoscopic appendectomy and drainage of the abscess. On today's evaluation that is 05/07/2024, Patient did have resolution of his fever and is afebrile this morning and denies any chills, patient mention breathing comfortably and is currently on 1.5 L nasal cannula oxygen patient denies any chest pain occasional cough patient abdominal discomfort distention has slightly decreased no nausea no vomiting did have a small bowel movement. Labs pending from this morning abdominal cultures currently pending Objective - Vital Signs Vital signs: Vital Signs Temp 97.6 F 05/07/24 08:00 Pulse 93 05/07/24 08:00 Resp 16 05/07/24 08:00 BP 146/70 05/07/24 08:00 Pulse Ox 96 05/07/24 08:00 FiO2 Intake & Output 05/06/24 05/07/24 05/07/24 18:59 06:59 18:59 Output Total 400 800 Balance -400 -800 Output: Urine 400 800 Other: Voiding Method Urinal Urinal # Voids 1 # Bowel Movements 1 - Exam GENERAL DESCRIPTION: An elderly male lying in bed in no distress RESPIRATORY SYSTEM: Unlabored breathing , decreased breath sounds at bases HEART: S1 S2 regular rate and rhythm , ABDOMEN: Soft , mild distention and tenderness EXTREMITIES: No edema feet - Labs CBC & Chem 7: 05/06/24 10:02 05/06/24 10:02 Labs: Abnormal Lab Results - Last 24 Hours (Table) 05/06/24 05/06/24 Range/Units 10:02 10:02 WBC 14.6 H (3.8-10.6) k/uL RBC 3.44 L (4.30-5.90) m/uL Hgb 10.3 L (13.0-17.5) gm/dL Hct 33.8 L (39.0-53.0) % MCHC 30.6 L (31.0-37.0) g/dL Neutrophils # 12.6 H (1.3-7.7) k/uL Sodium 135 L (137-145) mmol/L Glucose 120 H (74-99) mg/dL Calcium 8.1 L (8.4-10.2) mg/dL AST 170 H (17-59) U/L ALT 51 H (4-49) U/L Total Protein 5.5 L (6.3-8.2) g/dL Albumin 2.6 L (3.5-5.0) g/dL Microbiology - Last 24 Hours (Table) 05/03/24 13:55 Blood Culture - Preliminary Blood 05/03/24 13:31 Blood Culture - Preliminary Blood 05/04/24 12:35 Anaerobic Culture - Preliminary Appendix 05/04/24 12:35 Gram Stain - Final Appendix Wound Culture - Final Assessment and Plan (1) Intra-abdominal abscess Current Visit: Yes Status: Acute Code(s): K65.1 - PERITONEAL ABSCESS SNOMED Code(s): 03847561 (2) Leukocytosis Current Visit: Yes Status: Acute Code(s): D72.829 - ELEVATED WHITE BLOOD CELL COUNT, UNSPECIFIED SNOMED Code(s): 033563960 (3) Acute appendicitis Current Visit: Yes Status: Acute Code(s): K35.80 - UNSPECIFIED ACUTE APPENDICITIS SNOMED Code(s): 33965207 Plan: 1patient presented to hospital with abdominal pain did have elevated white count patient has been diagnosed with acute gangrenous appendicitis status post laparoscopic laceration appendectomy we will need to cover for the enteric gram- negative both aerobic anaerobes to be the likely pathogen 2-patient did have resolution of his fever abdominal cultures currently pending labs pending from this morning continue with the Zosyn and monitor clinical course closely Dictation was produced using [employer] dictation software. please excuse any grammatical, word or spelling errors. Time with Patient: Less than 30
--- NOTE | 2024-05-07 12:26 | P.PN ---
Subjective patient is seen for follow-up for acute kidney injury. Currently maintained on IV fluids. Serum creatinine has improved to 1.2. No significant complaints today. Abdominal pain is better. Objective - Vital Signs Vital signs: Vital Signs Temp 97.6 F 05/07/24 07:41 Pulse 93 05/07/24 07:41 Resp 16 05/07/24 07:41 BP 146/70 05/07/24 07:41 Pulse Ox 96 05/07/24 07:41 FiO2 Intake & Output 05/06/24 05/07/24 05/07/24 18:59 06:59 18:59 Output Total 400 800 Balance -400 -800 Weight 95.708 kg Output: Urine 400 800 Other: Voiding Method Urinal Urinal # Voids 1 # Bowel Movements 1 - Exam patient is awake comfortable. No acute distress. Examination of the heart S1 and S2 Examination of the lungs bilateral breath sounds are heard Abdomen is soft, distended. Mild tenderness noted. Examination of lower extremity shows no edema [employer] exam grossly intact Incision on left knee is intact - Labs CBC & Chem 7: 05/06/24 10:02 05/06/24 10:02 Labs: Microbiology - Last 24 Hours (Table) 05/03/24 13:55 Blood Culture - Preliminary Blood 05/03/24 13:31 Blood Culture - Preliminary Blood 05/04/24 12:35 Anaerobic Culture - Preliminary Appendix 05/04/24 12:35 Gram Stain - Final Appendix Wound Culture - Final Assessment and Plan Assessment: 1. Acute kidney injury, ATN currently nonoliguric and improved. Patient is maintained on IV fluids. UA shows trace protein and blood. Computed tomography scan of the abdomen does not show any evidence of obstructive uropathy. 2. Ruptured gangrenous appendicitis status post laparoscopic appendectomy on 05/05/2024 with significant lysis of adhesions. 3. Status post recent left knee arthroplasty on 04/19/2024 4. Chronic kidney disease stage IIIa, with baseline creatinine around 1.5 mg/dL. Possibly diabetic kidney disease. Plan: continue with IV fluids. continue to avoid NSAIDs Consider adding JOHAN inhibitor's as outpatient
[2024-05-07 13:55] LABS: HCT 35.2 % (39.0-53.0); Hypochromasia Slight; MCH 30.7 pg (25.0-35.0); MCHC 31.2 g/dL (31.0-37.0); MCV 98.2 fL (80.0-100.0); Mean Platelet Volume 7.7; Platelet Count 398 k/uL (150-450); RBC 3.59 m/uL (4.30-5.90); RDW 13.1 % (11.5-15.5); WBC 10.7 k/uL (3.8-10.6)
[2024-05-07 13:58] LABS: African American GFR (CKD) 82 (>60 ml/min/1.73 sqM); Anion Gap 8 mmol/L; Blood Urea Nitrogen 19 mg/dL (9-20); Calcium 8.2 mg/dL (8.4-10.2); Carbon Dioxide 21 mmol/L (22-30); Chloride 106 mmol/L (98-107); Glucose 159 mg/dL (74-99); Magnesium 2.1 mg/dL (1.6-2.3); Non-African American GFR(CKD) 71 (>60 ml/min/1.73 sqM); Potassium 3.8 mmol/L (3.5-5.1); Sodium 135 mmol/L (137-145)
--- NOTE | 2024-05-07 14:05 | P.PN ---
Subjective Progress Note Date: 05/07/24 CHIEF COMPLAINT: Abdominal pain HISTORY OF PRESENT ILLNESS: The patient is a 68 year old male status post robotic appendectomy with features of gangrenous ruptured appendicitis. He is sitting up in a chair. His and daughter and grandchildren at bedside. He reports decreased right-sided abdominal pain. No increased abdominal gas distention. He did have a elevated temperature over 100 F last night. He was seen by physical therapy for his recent status post left knee replacement. REVIEW OF ORGAN SYSTEMS: CONSTITUTIONAL: Has fevers. No chills. EYES: Denies any trouble with vision. Wears glasses. HEENT: No difficulties with hearing. No nosebleeds. No difficulty swallowing. PHYSICAL EXAM: VITALS: Reviewed CONSTITUTIONAL: Well developed and in no acute distress. EYES: Conjuctivae without sclera icterus. Extraocular movements grossly intact. HEAD, EARS, NOSE, THROAT: Moist buccal mucosa. Head is atraumatic, normocephalic. Hears conversational speech. No nasal drainage. RESPIRATORY: Non-labored respirations and equal bilateral excursions. No gross wheezes. CARDIOVASCULAR: Palpable 2+ radial pulses. ABDOMEN: Tender right lower quadrant. Incision intact. MUSCULOSKELETAL: Swelling along the left knee. Well-healed incision. SKIN: Warm and well perfused with good skin turgor. NEUROLOGIC: Cranial nerves II through XII grossly intact. No focal or lateralizing signs. PSYCH: Appropriate affect. Alert and oriented to person, place and time. Displays appropriate insight. CLINCAL LABS: Reviewed. Creatinine down 1.7-1.08. ASSESSMENT: 1. Ruptured appendicitis with sepsis 2. Leukocytosis 3. Cholelithiasis 4. Lactic acidosis 5. Renal impairment 6. Status post left knee replacement 7. Anemia 8. Dehydration 9. Sepsis due to appendicitis 10. Acute kidney injury upon presentation PLAN: 1. May advance to full liquid diet. 2. Antibiotic management per infectious disease. 3. Will need CT of the abdomen pelvis prior to discharge due to acute ruptured appendicitis and high risk of intra-abdominal abscess 4. Scheduled Tylenol for fevers Objective - Vital Signs Vital signs: Vital Signs Temp 97.6 F 05/07/24 07:41 Pulse 93 05/07/24 07:41 Resp 16 05/07/24 07:41 BP 146/70 05/07/24 07:41 Pulse Ox 96 05/07/24 07:41 FiO2 Intake & Output 05/06/24 05/07/24 05/07/24 18:59 06:59 18:59 Output Total 400 800 Balance -400 -800 Weight 95.708 kg Output: Urine 400 800 Other: Voiding Method Urinal Urinal # Voids 1 # Bowel Movements 1 - Labs CBC & Chem 7: 05/06/24 10:02 05/07/24 13:21 Labs: Abnormal Lab Results - Last 24 Hours (Table) 05/07/24 Range/Units 13:21 Sodium 135 L (137-145) mmol/L Carbon Dioxide 21 L (22-30) mmol/L Glucose 159 H (74-99) mg/dL Calcium 8.2 L (8.4-10.2) mg/dL Microbiology - Last 24 Hours (Table) 05/03/24 13:55 Blood Culture - Preliminary Blood 05/03/24 13:31 Blood Culture - Preliminary Blood 05/04/24 12:35 Anaerobic Culture - Preliminary Appendix
[2024-05-07 15:08] LABS: Eosinophils # (M) 0.11 k/uL (0-0.7); Lymphocytes # (M) 1.18 k/uL (1.0-4.8); Monocytes # (M) 0.21 k/uL (0-1.0); Neutrophils # (M) 9.31 k/uL (1.3-7.7); Neutrophils % (M) 87 %; Nucleated Red Blood Cells 0 /100 WBC (0-0); Total Cells Counted 200
--- NOTE | 2024-05-07 16:11 | P.PN ---
Subjective Progress Note Date: 05/07/24 Patient is a pleasant 68 years old male with past medical history of multiple medical problems Presents because of abdominal pain for a few days [place] like mild event patient was sitting in chair not an distress. Pain states is nonradiating nonspecific in quality no precipitating or relieving factors. Patient reports no vomiting. Patient usually constipated but he had loose bowel movements earlier today No other specific complaint and is just urine. No headache dizziness weakness or confusion He denies smoking alcohol or illicit drugs His PCP is Dr. Castillo Vital stable and is afebrile He has mild leukocytosis at 17,000, creatinine at baseline 1.5 as he has CKD stage III He has some elevated lactic acid 2.3 came back to reference range however he is continued on normal saline at 130 mL/h EKG showing sinus rhythm at [address]-T changes CT of the abdomen and pelvis showing gallstones with no hydronephrosis but dilated complex appendix with 22 x 12 mm of plebolith 05/05/24 Patient is status post robotic assisted laparoscopic lysis of adhesions and appendectomy. Today is postop day #1 Patient is fully awake and oriented at baseline, no distress and he looks relaxed. He has some pain at the surgical site which is expected No vomiting he is tolerating liquid diet No chest pain or dyspnea. He is also getting normal saline at 130 mL/h. His creatinine is 1.7 from 1.3 yesterday which is still within the range of his chronic kidney disease stage III Leukocytosis improving, down to 12,000 He has low-grade fever. He is on Zosyn. 05/06/24 Patient is status post appendectomy. Pathology pending He has some pain at the surgical site Continue on liquid diet which he tolerates well He has chronic kidney disease started on IV fluids, creatinine improving with nephrology being consulted Remains on Zosyn with ID team on the case No new complaint 05/07/2024 Is evaluated today in follow-up on the medical floor. Patient is postoperative day #3 laparoscopic appendectomy and lysis of adhesions. Patient is reporting minimal abdominal pain at this time. He has had a bowel movement and he is tolerating clear liquid diet he is hoping to have diet advanced and we will leave this up to the surgeon. His white blood cell count is 10.7, his renal function has normalized with a BUN of 19 and a creatinine of 1.08 his sodium level is 135. Review of Systems Constitutional: Denied any fatigue denied any fever. Cardio vascular: denied any chest pain, palpitations Gastrointestinal: denied any nausea, vomiting, diarrhea Pulmonary: Denied any shortness of breath cough Neurologic denied any new focal deficits All inpatient medications were reviewed and appropriate changes in these medic ations as dictated in the interval history and assessment and plan. PHYSICAL EXAMINATION: GENERAL: The patient is alert and oriented x3, not in any acute distress. Well developed, well nourished. HEENT: Pupils are round and equally reacting to light. EOMI. No scleral icterus. No conjunctival pallor. Normocephalic, atraumatic. No pharyngeal erythema. No thyromegaly. CARDIOVASCULAR: S1 and S2 present. No murmurs, rubs, or gallops. PULMONARY: Chest is clear to auscultation, no wheezing or crackles. ABDOMEN: S Soft, right lower quadrant tenderness, nondistended, normoactive bowel sounds. No palpable organomegaly. MUSCULOSKELETAL: No joint swelling or deformity. EXTREMITIES: No cyanosis, clubbing, or pedal edema. NEUROLOGICAL: Gross neurological examination did not reveal any focal deficits. SKIN: No rashes. Assessment and plan Assessment: acute appendicitis with dilated complex appendix with 22 x 12 mm of plebolith. Status post laparoscopic appendectomy on 05/04 Sepsis secondary to above with elevated white cell count and lactic acid CKD stage III Reactive ileitis Gallstones with no evidence with acute cholecystitis. Recent history of left knee replacement, not active issue and wound is healing. Patient saw his orthopedic prior to hospitalization and it was fine DVT prophylaxis: Subcutaneous he Lovenox GI Prophylaxis: Pepcid Full Code Plan: Liquid diet advance as per surgery IV fluids Pain medication Surgical team consult Continue with Zosyn Surgery team following closely Hold metformin and continue with insulin sliding scale Repeat BMP The impression and plan of care has been dictated by Sasha Lowry, Nurse Practitioner as directed. Dr. Batsheva MD I have performed a history and physical examination and medical decision making of this patient, discussed the same with the dictator, and agree with the dictators assessment and plan as written, documented as a scribe. Based on total visit time, I have performed more than 50% of this visit. Objective - Vital Signs Vital signs: Vital Signs Temp 97.6 F 05/07/24 07:41 Pulse 93 05/07/24 07:41 Resp 16 05/07/24 07:41 BP 146/70 05/07/24 07:41 Pulse Ox 96 05/07/24 07:41 FiO2 Intake & Output 05/06/24 05/07/24 05/07/24 18:59 06:59 18:59 Intake Total 980 Output Total 400 800 Balance -400 -800 980 Weight 95.708 kg Intake: Intake, IV Titration 760 Amount Piperacillin-Tazobactam 3 100 .375 gm In Sodium Chloride 0.9% 100 ml @ 25 mls/hr IVPB Q8HR [facility] Rx# :[id number] Sodium Chloride 0.9% 1, 560 000 ml @ 70 mls/hr IV . [id number] [facility] Rx#:[id number] metroNIDAZOLE-NS PMX 500 100 mg In Saline 1 100ml.bag @ 100 mls/hr IVPB Q8HR [facility] Rx#:[id number] Oral 220 Output: Urine 400 800 Other: Voiding Method Urinal Urinal # Voids 1 # Bowel Movements 1 - Labs CBC & Chem 7: 05/07/24 13:21 05/07/24 13:21 Labs: Abnormal Lab Results - Last 24 Hours (Table) 05/07/24 05/07/24 Range/Units 13:21 13:21 WBC 10.7 H (3.8-10.6) k/uL RBC 3.59 L (4.30-5.90) m/uL Hgb 11.0 L (13.0-17.5) gm/dL Hct 35.2 L (39.0-53.0) % Neutrophils # (Manual) 9.31 H (1.3-7.7) k/uL Sodium 135 L (137-145) mmol/L Carbon Dioxide 21 L (22-30) mmol/L Glucose 159 H (74-99) mg/dL Calcium 8.2 L (8.4-10.2) mg/dL Microbiology - Last 24 Hours (Table) 05/03/24 13:55 Blood Culture - Preliminary Blood 05/03/24 13:31 Blood Culture - Preliminary Blood Assessment and Plan Time with Patient: Less than 30
[2024-05-07] MEDS: ACETAMINOPHEN TAB 500 MG TAB PO SCH (17:48)
[2024-05-08 08:50] LABS: Magnesium 2.1 mg/dL (1.5-2.4)
[2024-05-08 09:01] LABS: BUN/Creat Ratio 14.42 Ratio (12.00-20.00); Blood Urea Nitrogen 17.3 mg/dL (9.0-27.0); Calcium 8.3 mg/dL (8.7-10.3); Carbon Dioxide 20.2 mmol/L (21.6-31.8); Chloride 108 mmol/L (96-109); Glucose 102 mg/dL (70-110); Potassium 3.6 mmol/L (3.5-5.5); Sodium 138 mmol/L (135-145)
--- NOTE | 2024-05-08 12:32 | P.PN ---
Subjective Progress Note Date: 05/08/24 Principal diagnosis: Reason for follow-up is gangrenous appendicitis and peritonitis Patient is a 68-year-old male past medical history significant for hyperlipidemia osteoarthritis presenting to the hospital for evaluation of abdominal discomfort patient has been diagnosed with a gangrenous appendicitis status post laparoscopic appendectomy and drainage of the abscess. On today's evaluation that is 05/08/2024,the patient denies any fever or any chills, patient is breathing comfortably on room air, the patient denies chest pain shortness of breath and no significant cough, patient abdominal pain has decreased in intensity no nausea vomiting did have a bowel movement. Patient white count of 10.7 as of yesterday, creatinine is 1.2 abdominal cultures so far negative Objective - Vital Signs Vital signs: Vital Signs Temp 98.5 F 05/08/24 08:00 Pulse 84 05/08/24 08:00 Resp 17 05/08/24 08:00 BP 114/66 05/08/24 08:00 Pulse Ox 95 05/08/24 01:12 FiO2 Intake & Output 05/07/24 05/08/24 05/08/24 18:59 06:59 18:59 Intake Total 980 Output Total 1050 Balance 980 -1050 Weight 95.708 kg Intake: Intake, IV Titration 760 Amount Piperacillin-Tazobactam 3 100 .375 gm In Sodium Chloride 0.9% 100 ml @ 25 mls/hr IVPB Q8HR [facility] Rx# :[id number] Sodium Chloride 0.9% 1, 560 000 ml @ 70 mls/hr IV . [id number] [facility] Rx#:[id number] metroNIDAZOLE-NS PMX 500 100 mg In Saline 1 100ml.bag @ 100 mls/hr IVPB Q8HR [facility] Rx#:[id number] Oral 220 Output: Urine 1050 - Exam GENERAL DESCRIPTION: An elderly male lying in bed in no distress RESPIRATORY SYSTEM: Unlabored breathing , decreased breath sounds at bases HEART: S1 S2 regular rate and rhythm , ABDOMEN: Soft , mild distention and tenderness EXTREMITIES: No edema feet - Labs CBC & Chem 7: 05/07/24 13:21 05/08/24 05:23 Labs: Abnormal Lab Results - Last 24 Hours (Table) 05/07/24 05/07/24 05/08/24 Range/Units 13:21 13:21 05:23 WBC 10.7 H (3.8-10.6) k/uL RBC 3.59 L (4.30-5.90) m/uL Hgb 11.0 L (13.0-17.5) gm/dL Hct 35.2 L (39.0-53.0) % Neutrophils # (Manual) 9.31 H (1.3-7.7) k/uL Sodium 135 L (137-145) mmol/L Carbon Dioxide 21 L 20.2 L (22-30) mmol/L Glucose 159 H (74-99) mg/dL Calcium 8.2 L 8.3 L (8.4-10.2) mg/dL Microbiology - Last 24 Hours (Table) 05/03/24 13:55 Blood Culture - Preliminary Blood 05/03/24 13:31 Blood Culture - Preliminary Blood Assessment and Plan (1) Intra-abdominal abscess Current Visit: Yes Status: Acute Code(s): K65.1 - PERITONEAL ABSCESS SNOMED Code(s): 25524105 (2) Leukocytosis Current Visit: Yes Status: Acute Code(s): D72.829 - ELEVATED WHITE BLOOD CELL COUNT, UNSPECIFIED SNOMED Code(s): 252510499 (3) Acute appendicitis Current Visit: Yes Status: Acute Code(s): K35.80 - UNSPECIFIED ACUTE APPENDICITIS SNOMED Code(s): 71475210 Plan: 1patient presented to hospital with abdominal pain did have elevated white cou nt patient has been diagnosed with acute gangrenous appendicitis status post laparoscopic laceration appendectomy we will need to cover for the enteric gram- negative both aerobic anaerobes to be the likely pathogen 2-patient did have resolution of his fever patient white count has normalized abdominal cultures are negative so far we will continue with the Zosyn while inpatient transition to oral antibiotics on discharge Dictation was produced using [employer] dictation software. please excuse any gr ammatical, word or spelling errors. Time with Patient: Less than 30
--- NOTE | 2024-05-08 17:39 | P.PN ---
Subjective patient is seen for follow-up for acute kidney injury. Currently maintained on IV fluids. Serum creatinine has improved to 1.2. No significant complaints today. Abdominal pain is better. Objective - Vital Signs Vital signs: Vital Signs Temp 97.5 F L 05/08/24 14:53 Pulse 83 05/08/24 14:53 Resp 16 05/08/24 14:53 BP 117/70 05/08/24 14:53 Pulse Ox 100 05/08/24 14:53 FiO2 Intake & Output 05/07/24 05/08/24 05/08/24 18:59 06:59 18:59 Intake Total 980 760 Output Total 1050 600 Balance 980 -1050 160 Weight 95.708 kg Intake: Intake, IV Titration 760 760 Amount Piperacillin-Tazobactam 3 100 100 .375 gm In Sodium Chloride 0.9% 100 ml @ 25 mls/hr IVPB Q8HR [facility] Rx# :[id number] Sodium Chloride 0.9% 1, 560 560 000 ml @ 70 mls/hr IV . [id number] [facility] Rx#:[id number] metroNIDAZOLE-NS PMX 500 100 100 mg In Saline 1 100ml.bag @ 100 mls/hr IVPB Q8HR [facility] Rx#:[id number] Oral 220 Output: Urine 1050 600 - Exam patient is awake comfortable. No acute distress. Examination of the heart S1 and S2 Examination of the lungs bilateral breath sounds are heard Abdomen is soft, distended. Mild tenderness noted. Examination of lower extremity shows no edema FRAMING AND HANGING exam grossly intact Incision on left knee is intact - Labs CBC & Chem 7: 05/07/24 13:21 05/08/24 05:23 Labs: Abnormal Lab Results - Last 24 Hours (Table) 05/08/24 Range/Units 05:23 Carbon Dioxide 20.2 L (21.6-31.8) mmol/L Calcium 8.3 L (8.7-10.3) mg/dL Assessment and Plan Assessment: 1. Acute kidney injury, ATN currently nonoliguric and improved. Patient is maintained on IV fluids. UA shows trace protein and blood. Computed tomography scan of the abdomen does not show any evidence of obstructive uropathy. 2. Ruptured gangrenous appendicitis status post laparoscopic appendectomy on 05/05/2024 with significant lysis of adhesions. 3. Status post recent left knee arthroplasty on 04/19/2024 4. Chronic kidney disease stage IIIa, with baseline creatinine around 1.5 mg/dL. Serum creatinine has improved to about 1.2 mg/dL during this admission. Etiology is most likely diabetic kidney disease. Plan: continue with IV fluids. continue to avoid NSAIDs Consider adding JOHAN inhibitor's as outpatient
--- NOTE | 2024-05-08 20:59 | P.PN ---
Subjective Progress Note Date: 05/08/24 Patient is a pleasant 68 years old male with past medical history of multiple medical problems Presents because of abdominal pain for a few days [place] like mild event patient was sitting in chair not an distress. Pain states is nonradiating nonspecific in quality no precipitating or relieving factors. Patient reports no vomiting. Patient usually constipated but he had loose bowel movements earlier today No other specific complaint and is just urine. No headache dizziness weakness or confusion He denies smoking alcohol or illicit drugs His PCP is Dr. Castillo Vital stable and is afebrile He has mild leukocytosis at 17,000, creatinine at baseline 1.5 as he has CKD stage III He has some elevated lactic acid 2.3 came back to reference range however he is continued on normal saline at 130 mL/h EKG showing sinus rhythm at [address]-T changes CT of the abdomen and pelvis showing gallstones with no hydronephrosis but dilated complex appendix with 22 x 12 mm of plebolith 05/05/24 Patient is status post robotic assisted laparoscopic lysis of adhesions and appendectomy. Today is postop day #1 Patient is fully awake and oriented at baseline, no distress and he looks relaxed. He has some pain at the surgical site which is expected No vomiting he is tolerating liquid diet No chest pain or dyspnea. He is also getting normal saline at 130 mL/h. His creatinine is 1.7 from 1.3 yesterday which is still within the range of his chronic kidney disease stage III Leukocytosis improving, down to 12,000 He has low-grade fever. He is on Zosyn. 05/06/24 Patient is status post appendectomy. Pathology pending He has some pain at the surgical site Continue on liquid diet which he tolerates well He has chronic kidney disease started on IV fluids, creatinine improving with nephrology being consulted Remains on Zosyn with ID team on the case No new complaint 05/07/2024 Is evaluated today in follow-up on the medical floor. Patient is postoperative day #3 laparoscopic appendectomy and lysis of adhesions. Patient is reporting minimal abdominal pain at this time. He has had a bowel movement and he is tolerating clear liquid diet he is hoping to have diet advanced and we will leave this up to the surgeon. His white blood cell count is 10.7, his renal function has normalized with a BUN of 19 and a creatinine of 1.08 his sodium level is 135. 05/08/2024 Patient is evaluated in follow up today. He is having bowel movements. He remains on liquid diet was upgraded to full liquid and tolerating. He is postoperative day #4 appendectomy. Continues on IV flagyl and IV zosyn. Sodium 138, BUN 17.3 creatinine 1.2, magnesium 2.1. Review of Systems Constitutional: Denied any fatigue denied any fever. Cardio vascular: denied any chest pain, palpitations Gastrointestinal: denied any nausea, vomiting, diarrhea Pulmonary: Denied any shortness of breath cough Neurologic denied any new focal deficits All inpatient medications were reviewed and appropriate changes in these medications as dictated in the interval history and assessment and plan. PHYSICAL EXAMINATION: GENERAL: The patient is alert and oriented x3, not in any acute distress. Well developed, well nourished. HEENT: Pupils are round and equally reacting to light. EOMI. No scleral icterus. No conjunctival pallor. Normocephalic, atraumatic. No pharyngeal erythema. No thyromegaly. CARDIOVASCULAR: S1 and S2 present. No murmurs, rubs, or gallops. PULMONARY: Chest is clear to auscultation, no wheezing or crackles. ABDOMEN: S Soft, right lower quadrant tenderness, nondistended, normoactive bowel sounds. No palpable organomegaly. MUSCULOSKELETAL: No joint swelling or deformity. EXTREMITIES: No cyanosis, clubbing, or pedal edema. NEUROLOGICAL: Gross neurological examination did not reveal any focal deficits. SKIN: No rashes. Assessment and plan Assessment: acute appendicitis with dilated complex appendix with 22 x 12 mm of plebolith. Status post laparoscopic appendectomy on 05/04 Sepsis secondary to above with elevated white cell count and lactic acid CKD stage III Reactive ileitis Gallstones with no evidence with acute cholecystitis. Recent history of left knee replacement, not active issue and wound is healing. Patient saw his orthopedic prior to hospitalization and it was fine DVT prophylaxis: Subcutaneous he Lovenox GI Prophylaxis: Pepcid Full Code Plan: Liquid diet advance as per surgery IV fluids Pain medication Surgical team consult Continue with Zosyn, metronidazole Surgery team following closely Hold metformin and continue with insulin sliding scale Repeat BMP The impression and plan of care has been dictated by Sasha Lowry, Nurse Practitioner as directed. Dr. Batsheva MD I have performed a history and physical examination and medical decision making of this patient, discussed the same with the dictator, and agree with the d ictators assessment and plan as written, documented as a scribe. Based on total visit time, I have performed more than 50% of this visit. Objective - Vital Signs Vital signs: Vital Signs Temp 98.5 F 05/08/24 08:00 Pulse 84 05/08/24 08:00 Resp 17 05/08/24 08:00 BP 114/66 05/08/24 08:00 Pulse Ox 98 05/08/24 08:00 FiO2 Intake & Output 05/07/24 05/08/24 05/08/24 18:59 06:59 18:59 Intake Total 980 760 Output Total 1050 Balance 980 -1050 760 Weight 95.708 kg Intake: Intake, IV Titration 760 760 Amount Piperacillin-Tazobactam 3 100 100 .375 gm In Sodium Chloride 0.9% 100 ml @ 25 mls/hr IVPB Q8HR [facility] Rx# :[id number] Sodium Chloride 0.9% 1, 560 560 000 ml @ 70 mls/hr IV . [id number] [facility] Rx#:[id number] metroNIDAZOLE-NS PMX 500 100 100 mg In Saline 1 100ml.bag @ 100 mls/hr IVPB Q8HR [facility] Rx#:[id number] Oral 220 Output: Urine 1050 - Labs CBC & Chem 7: 05/07/24 13:21 05/08/24 05:23 Labs: Abnormal Lab Results - Last 24 Hours (Table) 05/07/24 05/08/24 Range/Units 13:21 05:23 Neutrophils # (Manual) 9.31 H (1.3-7.7) k/uL Carbon Dioxide 20.2 L (21.6-31.8) mmol/L Calcium 8.3 L (8.7-10.3) mg/dL Microbiology - Last 24 Hours (Table) 05/03/24 13:55 Blood Culture - Preliminary Blood 05/03/24 13:31 Blood Culture - Preliminary Blood Assessment and Plan Time with Patient: Less than 30
--- NOTE | 2024-05-09 10:37 | P.PN ---
Subjective Progress Note Date: 05/09/24 CHIEF COMPLAINT: Abdominal pain HISTORY OF PRESENT ILLNESS: The patient is a 68 year old male status post robotic appendectomy with features of gangrenous ruptured appendicitis. He has fevers. He reports decreased tenderness along the right lower abdomen however still persistent. He is having bowel movements. REVIEW OF ORGAN SYSTEMS: CONSTITUTIONAL: Has fevers. No chills. EYES: Denies any trouble with vision. Wears glasses. HEENT: No difficulties with hearing. No nosebleeds. No difficulty swallowing. PHYSICAL EXAM: VITALS: Reviewed CONSTITUTIONAL: Well developed and in no acute distress. EYES: Conjuctivae without sclera icterus. Extraocular movements grossly intact. HEAD, EARS, NOSE, THROAT: Moist buccal mucosa. Head is atraumatic, normocephalic. Hears conversational speech. No nasal drainage. RESPIRATORY: Non-labored respirations and equal bilateral excursions. No gross wheezes. CARDIOVASCULAR: Palpable 2+ radial pulses. ABDOMEN: No peritonitis. Incision clean dry intact. MUSCULOSKELETAL: Swelling along the left knee. Well-healed incision. SKIN: Warm and well perfused with good skin turgor. NEUROLOGIC: Cranial nerves II through XII grossly intact. No focal or lateralizing signs. PSYCH: Appropriate affect. Alert and oriented to person, place and time. Disp lays appropriate insight. CLINCAL LABS: Reviewed. WBC still elevated over 10,000. Creatinine down less than 1.5. ASSESSMENT: 1. Ruptured appendicitis with sepsis 2. Leukocytosis 3. Cholelithiasis 4. Lactic acidosis 5. Renal impairment 6. Status post left knee replacement 7. Anemia 8. Dehydration 9. Sepsis due to appendicitis 10. Acute kidney injury upon presentation PLAN: 1. Will obtain CT of the abdomen pelvis due to persistent right lower quadrant abdominal pain and intermittent fevers. 2. Awaiting final cultures regarding IV antibiotic versus oral antibiotic upon discharge 3. Continue physical therapy for recent left knee replacement Objective - Vital Signs Vital signs: Vital Signs Temp 98.3 F 05/09/24 07:49 Pulse 96 05/09/24 07:49 Resp 16 05/09/24 07:49 BP 114/49 05/09/24 07:49 Pulse Ox 95 05/09/24 07:49 FiO2 Intake & Output 05/08/24 05/09/24 05/09/24 18:59 06:59 18:59 Intake Total 1200 Output Total 600 450 Balance 600 -450 Intake: Intake, IV Titration 760 Amount Piperacillin-Tazobactam 3 100 .375 gm In Sodium Chloride 0.9% 100 ml @ 25 mls/hr IVPB Q8HR [facility] Rx# :[id number] Sodium Chloride 0.9% 1, 560 000 ml @ 70 mls/hr IV . [id number] [facility] Rx#:[id number] metroNIDAZOLE-NS PMX 500 100 mg In Saline 1 100ml.bag @ 100 mls/hr IVPB Q8HR [facility] Rx#:[id number] Oral 440 Output: Urine 600 450 Other: # Voids 4 2 # Bowel Movements 1 - Labs CBC & Chem 7: 05/07/24 13:21 05/08/24 05:23
[2024-05-09] MEDS: IOPAMIDOL CONTRAST (ORAL USE) VIAL PO PRN (11:15)
[2024-05-09 12:14] LABS: HCT 34.1 % (39.6-50.0); HGB 10.8 g/dL (13.0-17.0); Lymphocytes % (A) 18.2 %; MCHC 31.7 g/dL (32.0-37.0); MCV 91.7 FL (80.0-97.0); NRBC Per 100 WBC 0 X 10*3/uL (0.00-0.01); Neutrophils % (A) 69.2 %; Platelet Count 426 X 10*3/uL (140-440); RBC 3.72 X 10*6/uL (4.40-5.60); RDW 13.8 % (11.5-14.5); WBC 9.76 X 10*3/uL (4.50-10.00)
[2024-05-09 12:15] LABS: Basophils # (A) 0.06 X 10*3/uL (0.00-0.10); Basophils % (A) 0.6 %; Eosinophils # (A) 0.14 X 10*3/uL (0.04-0.35); Eosinophils % (A) 1.4 %; Lymphocytes # (A) 1.78 X 10*3/uL (0.90-5.00); Monocytes # (A) 0.87 X 10*3/uL (0.20-1.00); Monocytes % (A) 8.9 %; Neutrophils # (A) 6.74 X 10*3/uL (1.80-7.70)
[2024-05-09 12:24] LABS: BUN/Creat Ratio 8.77 Ratio (12.00-20.00); Blood Urea Nitrogen 11.4 mg/dL (9.0-27.0); Calcium 8.3 mg/dL (8.7-10.3); Carbon Dioxide 21.9 mmol/L (21.6-31.8); Chloride 108 mmol/L (96-109); Glucose 104 mg/dL (70-110); Magnesium 2.1 mg/dL (1.5-2.4); Potassium 3.6 mmol/L (3.5-5.5); Sodium 140 mmol/L (135-145)
--- NOTE | 2024-05-09 12:51 | CT ---
EXAMINATION TYPE: CT abdomen pelvis wo con DATE OF EXAM: 05/09/2024 COMPARISON: 05/03/2024 HISTORY: 68-year-old male pain, Perforated appendicitis CT DLP: 1001.8 mGycm. Automated exposure control for dose reduction was used. TECHNIQUE: Contiguous axial scanning of the abdomen and pelvis without IV contrast. Coronal and sagit milan reconstructions performed. FINDINGS: Heart normal size without pericardial effusion. Prominent patchy bibasilar opacities. No pleural effu gatito. Liver remains enlarged at 19.9 cm. Redemonstrated cholelithiasis with gallstones measuring up to 3.5 cm. Adrenal glands, kidneys, spleen, and pancreas within normal limits. No dilated small bowel or free air. No abdominal or pelvic adenopathy seen. Interval surgery along the right lower quadrant. However, there is now a fluid collection abutting th e inferior and posterior aspect of the cecum measuring up to 9.4 x 6.7 x 8.8 cm. A couple additional small pockets of fluid are present measuring up to 2.9 cm in the mid lower abdomen, axial image 67 an d along the left lateral serosal surface of the ascending colon, axial image 58. In addition, there may be a second site of possible leak extending from the left lateral aspect of th e staple line, axial image 32. Mild left-sided colonic diverticulosis. Mild pelvic free fluid. Extensive metal artifacts relating to the patient's bilateral total vertebrop lasty is limiting detailed assessment of the pelvis. Bladder appears partially distended. Bones: DISH lower thoracic spine. Advanced hypertrophic facet arthropathy lumbar spine. IMPRESSION: 1. Interval surgery along the right lower quadrant with a staple line. However, there is now a 9.4 x 8.8 x 6.7 cm fluid collection along the inferior and posterior aspect of the cecum that may represen t a contained leak. 2. There are a couple additional small pockets of fluid such as within the lower mid abdominal mesen kelley and along the left lateral serosal surface of the ascending colon measuring up to 2.9 cm that co uld represent small peritoneal abscesses. 3. Possible second site of contained leak along the left lateral margin of the staple line, axial im age 33. 4. Mild pelvic free fluid.
--- NOTE | 2024-05-09 13:20 | P.PN ---
Subjective patient is seen for follow-up for acute kidney injury. Currently maintained on IV fluids. Serum creatinine has improved to 1.2 yesterday. No significant complaints today. Abdominal pain is better. Objective - Vital Signs Vital signs: Vital Signs Temp 98.3 F 05/09/24 07:49 Pulse 96 05/09/24 07:49 Resp 16 05/09/24 07:49 BP 114/49 05/09/24 07:49 Pulse Ox 95 05/09/24 07:49 FiO2 Intake & Output 05/08/24 05/09/24 05/09/24 18:59 06:59 18:59 Intake Total 1200 Output Total 600 450 Balance 600 -450 Weight 95.708 kg Intake: Intake, IV Titration 760 Amount Piperacillin-Tazobactam 3 100 .375 gm In Sodium Chloride 0.9% 100 ml @ 25 mls/hr IVPB Q8HR [facility] Rx# :[id number] Sodium Chloride 0.9% 1, 560 000 ml @ 70 mls/hr IV . [id number] [facility] Rx#:[id number] metroNIDAZOLE-NS PMX 500 100 mg In Saline 1 100ml.bag @ 100 mls/hr IVPB Q8HR [facility] Rx#:[id number] Oral 440 Output: Urine 600 450 Other: # Voids 4 2 # Bowel Movements 1 - Exam patient is awake comfortable. No acute distress. Examination of the heart S1 and S2 Examination of the lungs bilateral breath sounds are heard Abdomen is soft, distended. Mild tenderness noted. Examination of lower extremity shows no edema [employer] exam grossly intact Incision on left knee is intact - Labs CBC & Chem 7: 05/09/24 06:56 05/09/24 06:56 Labs: Abnormal Lab Results - Last 24 Hours (Table) 05/09/24 05/09/24 Range/Units 06:56 06:56 RBC 3.72 L (4.40-5.60) X 10*6/uL Hgb 10.8 L (13.0-17.0) g/dL Hct 34.1 L (39.6-50.0) % MCHC 31.7 L (32.0-37.0) g/dL Immature Gran # 0.17 H (0.00-0.04) X 10*3/uL BUN/Creatinine Ratio 8.77 L (12.00-20.00) Ratio Calcium 8.3 L (8.7-10.3) mg/dL Microbiology - Last 24 Hours (Table) 05/03/24 13:55 Blood Culture - Final Blood 05/03/24 13:31 Blood Culture - Final Blood Assessment and Plan Assessment: 1. Acute kidney injury, ATN currently nonoliguric and improved. Patient is maintained on IV fluids. UA shows trace protein and blood. Computed tomography scan of the abdomen does not show any evidence of obstructive uropathy. 2. Ruptured gangrenous appendicitis status post laparoscopic appendectomy on 05/05/2024 with significant lysis of adhesions. 3. Status post recent left knee arthroplasty on 04/19/2024 4. Chronic kidney disease stage IIIa, with baseline creatinine around 1.5 mg/dL. Serum creatinine has improved to about 1.2 mg/dL during this admission. Etiology is most likely diabetic kidney disease. Plan: continue with IV fluids. continue to avoid NSAIDs Consider adding JOHAN inhibitor's as outpatient
[2024-05-09 17:11] LABS: INR 1.2 (<1.2); Prothrombin Time 12.8 sec (10.0-12.5)
--- NOTE | 2024-05-09 20:20 | P.PN ---
Subjective Progress Note Date: 05/09/24 Patient is a pleasant 68 years old male with past medical history of multiple medical problems Presents because of abdominal pain for a few days [place] like mild event patient was sitting in chair not an distress. Pain states is nonradiating nonspecific in quality no precipitating or relieving factors. Patient reports no vomiting. Patient usually constipated but he had loose bowel movements earlier today No other specific complaint and is just urine. No headache dizziness weakness or confusion He denies smoking alcohol or illicit drugs His PCP is Dr. Castillo Vital stable and is afebrile He has mild leukocytosis at 17,000, creatinine at baseline 1.5 as he has CKD stage III He has some elevated lactic acid 2.3 came back to reference range however he is continued on normal saline at 130 mL/h EKG showing sinus rhythm at [address]-T changes CT of the abdomen and pelvis showing gallstones with no hydronephrosis but dilated complex appendix with 22 x 12 mm of plebolith 05/05/24 Patient is status post robotic assisted laparoscopic lysis of adhesions and appendectomy. Today is postop day #1 Patient is fully awake and oriented at baseline, no distress and he looks relaxed. He has some pain at the surgical site which is expected No vomiting he is tolerating liquid diet No chest pain or dyspnea. He is also getting normal saline at 130 mL/h. His creatinine is 1.7 from 1.3 yesterday which is still within the range of his chronic kidney disease stage III Leukocytosis improving, down to 12,000 He has low-grade fever. He is on Zosyn. 05/06/24 Patient is status post appendectomy. Pathology pending He has some pain at the surgical site Continue on liquid diet which he tolerates well He has chronic kidney disease started on IV fluids, creatinine improving with nephrology being consulted Remains on Zosyn with ID team on the case No new complaint 05/07/2024 Is evaluated today in follow-up on the medical floor. Patient is postoperative day #3 laparoscopic appendectomy and lysis of adhesions. Patient is reporting minimal abdominal pain at this time. He has had a bowel movement and he is tolerating clear liquid diet he is hoping to have diet advanced and we will leave this up to the surgeon. His white blood cell count is 10.7, his renal function has normalized with a BUN of 19 and a creatinine of 1.08 his sodium level is 135. 05/08/2024 Patient is evaluated in follow up today. He is having bowel movements. He remains on liquid diet was upgraded to full liquid and tolerating. He is postoperative day #4 appendectomy. Continues on IV flagyl and IV zosyn. Sodium 138, BUN 17.3 creatinine 1.2, magnesium 2.1. 05/09/2024 Patient evaluated in follow up. Sitting up in the chair. Reporting mild generalized abdominal discomfort. Diet upgraded to regular diet. Postoperative day #5 appendectomy for ruptured appendix. On IV flagyl and IV zosyn. Patient had an abdominal pelvis CT today reveals a 9.4 x 8.8 x 6.7 cm fluid collection along the inferior and posterior aspect of the cecum that may represent a contained leak. Possible small peritoneal abscesses. Possible second site of contained leak along the left lateral margin of the staple line. Mild pelvic free fluid. White blood cell count 9.76, hgb 10.8, sodium 140, potassium 3.6, BUN 11.4, creatinine 1.3. Review of Systems Constitutional: Denied any fatigue denied any fever. Cardio vascular: denied any chest pain, palpitations Gastrointestinal: denied any nausea, vomiting, diarrhea Pulmonary: Denied any shortness of breath cough Neurologic denied any new focal deficits All inpatient medications were reviewed and appropriate changes in these medications as dictated in the interval history and assessment and plan. PHYSICAL EXAMINATION: GENERAL: The patient is alert and oriented x3, not in any acute distress. Well developed, well nourished. HEENT: Pupils are round and equally reacting to light. EOMI. No scleral icterus. No conjunctival pallor. Normocephalic, atraumatic. No pharyngeal erythema. No thyromegaly. CARDIOVASCULAR: S1 and S2 present. No murmurs, rubs, or gallops. PULMONARY: Chest is clear to auscultation, no wheezing or crackles. ABDOMEN: S Soft, right lower quadrant tenderness, nondistended, normoactive bowel sounds. No palpable organomegaly. MUSCULOSKELETAL: No joint swelling or deformity. EXTREMITIES: No cyanosis, clubbing, or pedal edema. NEUROLOGICAL: Gross neurological examination did not reveal any focal deficits. SKIN: No rashes. Assessment and plan Assessment: -acute appendicitis with dilated complex appendix with 22 x 12 mm of plebolith. Status post laparoscopic appendectomy on 05/04 -Concern for anastomatic leak -Sepsis secondary to above with elevated white cell count and lactic acid -CKD stage III -Reactive ileitis -Gallstones with no evidence with acute cholecystitis. -Recent history of left knee replacement, not active issue and wound is healing. Patient saw his orthopedic prior to hospitalization and it was fine DVT prophylaxis: Subcutaneous he Lovenox GI Prophylaxis: Pepcid Full Code Plan: Diet advanced per surgery IR consultation for drainage of abdominal fluid collection. Need to hold lo venox. IV fluids Pain medication Surgical team consult Continue with Zosyn, metronidazole Surgery team following closely Hold metformin and continue with insulin sliding scale Repeat BMP The impression and plan of care has been dictated by Sasha Lowry, Nurse Practitioner as directed. Dr. Batsheva MD I have performed a history and physical examination and medical decision making of this patient, discussed the same with the dictator, and agree with the dictators assessment and plan as written, documented as a scribe. Based on total visit time, I have performed more than 50% of this visit. Objective - Vital Signs Vital signs: Vital Signs Temp 98.0 F 05/09/24 14:05 Pulse 74 05/09/24 14:05 Resp 16 05/09/24 14:05 BP 115/71 05/09/24 14:05 Pulse Ox 97 05/09/24 14:05 FiO2 Intake & Output 05/09/24 05/09/24 05/10/24 06:59 18:59 06:59 Output Total 450 Balance -450 Weight 95.708 kg Output: Urine 450 Other: # Voids 2 3 - Labs CBC & Chem 7: 05/09/24 06:56 05/09/24 06:56 Labs: Abnormal Lab Results - Last 24 Hours (Table) 05/09/24 05/09/24 05/09/24 Range/Units 06:56 06:56 16:36 RBC 3.72 L (4.40-5.60) X 10*6/uL Hgb 10.8 L (13.0-17.0) g/dL Hct 34.1 L (39.6-50.0) % MCHC 31.7 L (32.0-37.0) g/dL Immature Gran # 0.17 H (0.00-0.04) X 10*3/uL PT 12.8 H (10.0-12.5) sec INR 1.2 H (<1.2) BUN/Creatinine Ratio 8.77 L (12.00-20.00) Ratio Calcium 8.3 L (8.7-10.3) mg/dL Microbiology - Last 24 Hours (Table) 05/03/24 13:55 Blood Culture - Final Blood 05/03/24 13:31 Blood Culture - Final Blood Assessment and Plan Time with Patient: Less than 30
[2024-05-10 10:57] LABS: BUN/Creat Ratio 10.75 Ratio (12.00-20.00); Basophils # (A) 0.07 X 10*3/uL (0.00-0.10); Basophils % (A) 0.7 %; Blood Urea Nitrogen 12.9 mg/dL (9.0-27.0); Calcium 8.2 mg/dL (8.7-10.3); Chloride 107 mmol/L (96-109); Eosinophils # (A) 0.14 X 10*3/uL (0.04-0.35); Eosinophils % (A) 1.4 %; Glucose 111 mg/dL (70-110); HCT 31.6 % (39.6-50.0); HGB 10.4 g/dL (13.0-17.0); Lymphocytes # (A) 1.37 X 10*3/uL (0.90-5.00); Lymphocytes % (A) 13.6 %; MCH 30.6 pg (27.0-32.0); MCHC 32.9 g/dL (32.0-37.0); MCV 92.9 FL (80.0-97.0); Mean Platelet Volume 10.1 FL (9.5-12.2); Monocytes % (A) 7.9 %; NRBC Per 100 WBC 0 X 10*3/uL (0.00-0.01); Neutrophils # (A) 7.52 X 10*3/uL (1.80-7.70); Neutrophils % (A) 74.5 %; Platelet Count 402 X 10*3/uL (140-440); Potassium 3.6 mmol/L (3.5-5.5); Sodium 138 mmol/L (135-145); WBC 10.09 X 10*3/uL (4.50-10.00)
--- NOTE | 2024-05-10 12:39 | CT ---
EXAMINATION TYPE: CT guided abscess drainage DATE OF EXAM: 05/10/2024 12:15 PM CLINICAL INDICATION:Male, 68 years old with history of See IR consult for order details; Guided absce ss drainage, [facility] COMPARISON: 05/09/2024 TECHNIQUE: CT-guided abscess drainage with pigtail catheter placement. CT DLP: 2795 mGycm, Automated exposure control for dose reduction was used. Contrast used: mL of , none Oral contrast used: none ATTENDING: Joseph Morales D.O. PROCEDURE: Informed consent was obtained. DLP administered was [address] localizer images were taken which showed safest allowable access to the right lower abdome n fluid collection. The patient was prepped, draped in the usual sterile fashion, and locally anesth etized. Over a guidewire and 8.5 [place] pig tail catheter was placed. Approximately 10 mL of serous fluid was drained and sent to the lab for analysis. A vacuum drainage bag was then attached the catheter. There was no blood loss and post-procedure hemostasis was achiev ed. The patient tolerated the procedure well without complication. Patient was transferred [facility] medical floor in stable condition. IMPRESSION: CT guided placement of a percutaneous pigtail drainage catheter.
--- NOTE | 2024-05-10 15:00 | P.PN ---
Subjective Progress Note Date: 05/09/24 Principal diagnosis: Reason for follow-up is gangrenous appendicitis and peritonitis Patient is a 68-year-old male past medical history significant for hyperlipidemia osteoarthritis presenting to the hospital for evaluation of abdominal discomfort patient has been diagnosed with a gangrenous appendicitis status post laparoscopic appendectomy and drainage of the abscess. On today's evaluation that is 05/09/2024,the patient remains to be afebrile, patient is on room air not requiring supplemental oxygen and denies any shortness of breath no chest pain or cough.Patient denies having any nausea or vomiting, no abdominal pain and did have a bowel movement mention feeling better. Patient white count normalized to 9.76, creatinine is 1.3 blood and abdominal cultures so far negative Objective - Vital Signs Vital signs: Vital Signs Temp 98.3 F 05/09/24 07:49 Pulse 96 05/09/24 07:49 Resp 16 05/09/24 07:49 BP 114/49 05/09/24 07:49 Pulse Ox 95 05/09/24 07:49 FiO2 Intake & Output 05/08/24 05/09/24 05/09/24 18:59 06:59 18:59 Intake Total 1200 Output Total 600 450 Balance 600 -450 Intake: Intake, IV Titration 760 Amount Piperacillin-Tazobactam 3 100 .375 gm In Sodium Chloride 0.9% 100 ml @ 25 mls/hr IVPB Q8HR [facility] Rx# :[id number] Sodium Chloride 0.9% 1, 560 000 ml @ 70 mls/hr IV . [id number] [facility] Rx#:[id number] metroNIDAZOLE-NS PMX 500 100 mg In Saline 1 100ml.bag @ 100 mls/hr IVPB Q8HR [facility] Rx#:[id number] Oral 440 Output: Urine 600 450 Other: # Voids 4 2 # Bowel Movements 1 - Exam GENERAL DESCRIPTION: An elderly male lying in bed in no distress RESPIRATORY SYSTEM: Unlabored breathing , decreased breath sounds at bases HEART: S1 S2 regular rate and rhythm , ABDOMEN: Soft , mild distention and tenderness EXTREMITIES: No edema feet - Labs CBC & Chem 7: 05/10/24 06:33 05/10/24 06:33 Assessment and Plan (1) Intra-abdominal abscess Current Visit: Yes Status: Acute Code(s): K65.1 - PERITONEAL ABSCESS SNOMED Code(s): 27562080 (2) Leukocytosis Current Visit: Yes Status: Acute Code(s): D72.829 - ELEVATED WHITE BLOOD CELL COUNT, UNSPECIFIED SNOMED Code(s): 938993209 (3) Acute appendicitis Current Visit: Yes Status: Acute Code(s): K35.80 - UNSPECIFIED ACUTE APPENDICITIS SNOMED Code(s): 64193859 Plan: 1patient presented to hospital with abdominal pain did have elevated white count patient has been diagnosed with acute gangrenous appendicitis status post laparoscopic laceration appendectomy we will need to cover for the enteric gram- negative both aerobic anaerobes to be the likely pathogen 2-patient did have resolution of his fever patient white count has normalized abdominal cultures are negative so far 3-patient to continue with the Zosyn abdominal CT has been ordered by surgery will wait for the CAT scan to be finalized before determining discharge antibiotics Dictation was produced using [employer] dictation software. please excuse any grammatical, word or spelling errors. Time with Patient: Less than 30
--- NOTE | 2024-05-10 15:00 | P.PN ---
Subjective Progress Note Date: 05/10/24 CHIEF COMPLAINT: Abdominal pain HISTORY OF PRESENT ILLNESS: The patient is a 68 year old male status post robotic appendectomy with features of gangrenous ruptured appendicitis. CT scan abdomen pelvis reports interval surgery along the right lower quadrant with staple line. However there is now a 9.4 x 8.8 x 6.7 cm fluid collection along the inferior and posterior aspect of the cecum that may represent a contained leak. There are a couple additional small pockets of fluid within the lower mid abdomen mesentery along the left lateral serosal surface of the ascending colon measuring 2.9 cm that could represent small peritoneal abscesses. Possible second site of contained leak along the left lateral margin of staple line. Patient does report some right lower quadrant discomfort. He had 1 loose bowel movement. Denies any nausea or vomiting. He has been up and ambulating. He is afebrile. WBC 10.09 PHYSICAL EXAM: VITAL SIGNS: Reviewed GENERAL: Well-developed in no acute distress. HEENT: No sclera icterus. Extraocular movements grossly intact. Moist buccal mucosa. Head is atraumatic, normocephalic. Hears conversational speech. No nasal drainage. NECK: Supple without lymphadenopathy. CHEST: Non-labored respirations and equal bilateral excursions. CARDIOVASCULAR: Palpable 2+ radial pulses. ABDOMEN: Soft. Mildly distended. Tenderness right lower quadrant MUSCULOSKELETAL: No clubbing or cyanosis. NEUROLOGIC: No focal or lateralizing signs. Cranial nerves II through XII grossly intact. PSYCH: Appropriate affect. Alert and oriented to person, place and time. SKIN: Well perfused. Good skin turgor. ASSESSMENT: 1. Ruptured appendicitis with sepsis 2. Leukocytosis 3. Cholelithiasis 4. Lactic acidosis 5. Renal impairment 6. Status post left knee replacement 7. Anemia 8. Dehydration 9. Sepsis due to appendicitis 10. Acute kidney injury upon presentation 11. Fluid collection along the inferior and posterior aspect of the cecum that may represent a contained leak noted on CT scan PLAN: -Interventional radiology consulted for drain placement for the fluid collection. Patient did have drain placed by IR service this afternoon -Continue antibiotics per ID service -Continue low fiber diet -Encourage patient to ambulate -Continue pain management Physician Social Services note has been reviewed by physician. Signing provider agrees with the documented findings, assessment, and plan of care. Objective - Vital Signs Vital signs: Vital Signs Temp 98.6 F 05/10/24 14:00 Pulse 75 05/10/24 14:00 Resp 18 05/10/24 14:00 BP 138/73 05/10/24 14:00 Pulse Ox 97 05/10/24 14:00 FiO2 Intake & Output 05/09/24 05/10/24 05/10/24 18:59 06:59 18:59 Weight 95.708 kg Other: Voiding Method Toilet Toilet # Voids 3 1 - Labs CBC & Chem 7: 05/10/24 06:33 05/10/24 06:33 Labs: Abnormal Lab Results - Last 24 Hours (Table) 05/09/24 05/10/24 05/10/24 Range/Units 16:36 06:33 06:33 WBC 10.09 H (4.50-10.00) X 10*3/uL RBC 3.40 L (4.40-5.60) X 10*6/uL Hgb 10.4 L (13.0-17.0) g/dL Hct 31.6 L (39.6-50.0) % Immature Gran # 0.19 H (0.00-0.04) X 10*3/uL PT 12.8 H (10.0-12.5) sec INR 1.2 H (<1.2) Carbon Dioxide 21.0 L (21.6-31.8) mmol/L BUN/Creatinine Ratio 10.75 L (12.00-20.00) Ratio Glucose 111 H (70-110) mg/dL Calcium 8.2 L (8.7-10.3) mg/dL Microbiology - Last 24 Hours (Table) 05/03/24 13:55 Blood Culture - Final Blood 05/03/24 13:31 Blood Culture - Final Blood
--- NOTE | 2024-05-10 15:01 | P.PN ---
Subjective Progress Note Date: 05/10/24 Principal diagnosis: Reason for follow-up is gangrenous appendicitis and peritonitis Patient is a 68-year-old male past medical history significant for hyperlipidemia osteoarthritis presenting to the hospital for evaluation of abdominal discomfort patient has been diagnosed with a gangrenous appendicitis status post laparoscopic appendectomy and drainage of the abscess. Patient repeat CT abdominal pelvis concerning for possible fluid collection for which the patient is status post CT-guided drainage of abdominal fluid drainage of mostly serous fluid procedure completed on 05/10/2024. On today's evaluation that is 05/10/2024, the patient continues to be afebrile, the patient is on room air and breathing comfortably, the Pt denies having any chest pain or cough, the patient has been complaining some abdominal discomfort postprocedure nausea but no vomiting and no diarrhea. Patient white count is 10.09 creatinine is 1.2 Objective - Vital Signs Vital signs: Vital Signs Temp 98.6 F 05/10/24 14:00 Pulse 75 05/10/24 14:00 Resp 18 05/10/24 14:00 BP 138/73 05/10/24 14:00 Pulse Ox 97 05/10/24 14:00 FiO2 Intake & Output 05/09/24 05/10/24 05/10/24 18:59 06:59 18:59 Weight 95.708 kg Other: Voiding Method Toilet Toilet # Voids 3 1 - Exam GENERAL DESCRIPTION: An elderly male lying in bed in no distress RESPIRATORY SYSTEM: Unlabored breathing , decreased breath sounds at bases HEART: S1 S2 regular rate and rhythm , ABDOMEN: Soft , mild tenderness drainage bag with mostly serous fluid no purulence was noticed EXTREMITIES: No edema feet - Labs CBC & Chem 7: 05/10/24 06:33 05/10/24 06:33 Labs: Abnormal Lab Results - Last 24 Hours (Table) 05/09/24 05/10/24 05/10/24 Range/Units 16:36 06:33 06:33 WBC 10.09 H (4.50-10.00) X 10*3/uL RBC 3.40 L (4.40-5.60) X 10*6/uL Hgb 10.4 L (13.0-17.0) g/dL Hct 31.6 L (39.6-50.0) % Immature Gran # 0.19 H (0.00-0.04) X 10*3/uL PT 12.8 H (10.0-12.5) sec INR 1.2 H (<1.2) Carbon Dioxide 21.0 L (21.6-31.8) mmol/L BUN/Creatinine Ratio 10.75 L (12.00-20.00) Ratio Glucose 111 H (70-110) mg/dL Calcium 8.2 L (8.7-10.3) mg/dL Microbiology - Last 24 Hours (Table) 05/03/24 13:55 Blood Culture - Final Blood 05/03/24 13:31 Blood Culture - Final Blood Assessment and Plan (1) Intra-abdominal abscess Current Visit: Yes Status: Acute Code(s): K65.1 - PERITONEAL ABSCESS SNOMED Code(s): 86807443 (2) Leukocytosis Current Visit: Yes Status: Acute Code(s): D72.829 - ELEVATED WHITE BLOOD CELL COUNT, UNSPECIFIED SNOMED Code(s): 864086325 (3) Acute appendicitis Current Visit: Yes Status: Acute Code(s): K35.80 - UNSPECIFIED ACUTE APPENDICITIS SNOMED Code(s): 00848554 Plan: 1patient presented to hospital with abdominal pain did have elevated white count patient has been diagnosed with acute gangrenous appendicitis status post laparoscopic laceration appendectomy we will need to cover for the enteric gram- negative both aerobic anaerobes to be the likely pathogen 2-patient did have resolution of his fever patient white count has normalized abdominal cultures are negative however the patient repeat CT abdominal pelvis today shows evidence of fluid collection status post CT-guided drainage with cultures currently pending 3-patient to continue with the Zosyn while waiting for repeat cultures to be finalized at the bedside multiple questions answered Dictation was produced using [employer] dictation software. please excuse any grammatical, word or spelling errors. Time with Patient: Less than 30
--- NOTE | 2024-05-10 17:14 | XR ---
EXAMINATION TYPE: XR Hip Complete RT DATE OF EXAM: 05/10/2024 COMPARISON: 07/06/2022 HISTORY: Pain TECHNIQUE: 2 view right hip FINDINGS: Femoral prosthesis and acetabular component are present.. Articulate normally. No acute fra cture or dislocations evident. IMPRESSION: 1. No acute osseous abnormality present right hip. There is a right prosthesis present.
--- NOTE | 2024-05-10 20:09 | P.PN ---
Subjective Progress Note Date: 05/10/24 Patient is a pleasant 68 years old male with past medical history of multiple medical problems Presents because of abdominal pain for a few days [place] like mild event patient was sitting in chair not an distress. Pain states is nonradiating nonspecific in quality no precipitating or relieving factors. Patient reports no vomiting. Patient usually constipated but he had loose bowel movements earlier today No other specific complaint and is just urine. No headache dizziness weakness or confusion He denies smoking alcohol or illicit drugs His PCP is Dr. Castillo Vital stable and is afebrile He has mild leukocytosis at 17,000, creatinine at baseline 1.5 as he has CKD stage III He has some elevated lactic acid 2.3 came back to reference range however he is continued on normal saline at 130 mL/h EKG showing sinus rhythm at [address]-T changes CT of the abdomen and pelvis showing gallstones with no hydronephrosis but dilated complex appendix with 22 x 12 mm of plebolith 05/05/24 Patient is status post robotic assisted laparoscopic lysis of adhesions and appendectomy. Today is postop day #1 Patient is fully awake and oriented at baseline, no distress and he looks relaxed. He has some pain at the surgical site which is expected No vomiting he is tolerating liquid diet No chest pain or dyspnea. He is also getting normal saline at 130 mL/h. His creatinine is 1.7 from 1.3 yesterday which is still within the range of his chronic kidney disease stage III Leukocytosis improving, down to 12,000 He has low-grade fever. He is on Zosyn. 05/06/24 Patient is status post appendectomy. Pathology pending He has some pain at the surgical site Continue on liquid diet which he tolerates well He has chronic kidney disease started on IV fluids, creatinine improving with nephrology being consulted Remains on Zosyn with ID team on the case No new complaint 05/07/2024 Is evaluated today in follow-up on the medical floor. Patient is postoperative day #3 laparoscopic appendectomy and lysis of adhesions. Patient is reporting minimal abdominal pain at this time. He has had a bowel movement and he is tolerating clear liquid diet he is hoping to have diet advanced and we will leave this up to the surgeon. His white blood cell count is 10.7, his renal function has normalized with a BUN of 19 and a creatinine of 1.08 his sodium level is 135. 05/08/2024 Patient is evaluated in follow up today. He is having bowel movements. He remains on liquid diet was upgraded to full liquid and tolerating. He is postoperative day #4 appendectomy. Continues on IV flagyl and IV zosyn. Sodium 138, BUN 17.3 creatinine 1.2, magnesium 2.1. 05/09/2024 Patient evaluated in follow up. Sitting up in the chair. Reporting mild generalized abdominal discomfort. Diet upgraded to regular diet. Postoperative day #5 appendectomy for ruptured appendix. On IV flagyl and IV zosyn. Patient had an abdominal pelvis CT today reveals a 9.4 x 8.8 x 6.7 cm fluid collection along the inferior and posterior aspect of the cecum that may represent a contained leak. Possible small peritoneal abscesses. Possible second site of contained leak along the left lateral margin of the staple line. Mild pelvic free fluid. White blood cell count 9.76, hgb 10.8, sodium 140, potassium 3.6, BUN 11.4, creatinine 1.3. 05/10/2024 Patient evaluated today in follow up. Patient underwent CT guided abscess drainage with pigtail catheter placement. Drainage is serous in color and has been sent for culture. Patient remains on antibiotics in the form of IV zosyn and IV metronidazole. Patients may complaint is pain to the right hip. He has prior history of hip replacement. Review of Systems Constitutional: Denied any fatigue denied any fever. Cardio vascular: denied any chest pain, palpitations Gastrointestinal: denied any nausea, vomiting, diarrhea Pulmonary: Denied any shortness of breath cough Neurologic denied any new focal deficits All inpatient medications were reviewed and appropriate changes in these medications as dictated in the interval history and assessment and plan. PHYSICAL EXAMINATION: GENERAL: The patient is alert and oriented x3, not in any acute distress. Well developed, well nourished. HEENT: Pupils are round and equally reacting to light. EOMI. No scleral icterus. No conjunctival pallor. Normocephalic, atraumatic. No pharyngeal erythema. No thyromegaly. CARDIOVASCULAR: S1 and S2 present. No murmurs, rubs, or gallops. PULMONARY: Chest is clear to auscultation, no wheezing or crackles. ABDOMEN: S Soft, right lower quadrant tenderness, nondistended, normoactive bowel sounds. No palpable organomegaly. MUSCULOSKELETAL: No joint swelling or deformity. EXTREMITIES: No cyanosis, clubbing, or pedal edema. NEUROLOGICAL: Gross neurological examination did not reveal any focal deficits. SKIN: No rashes. Assessment and plan Assessment: -ruptured appendicitis with dilated complex appendix with 22 x 12 mm of plebolith. Status post laparoscopic appendectomy on 05/04 -Concern for contained leak fluid collection along the inferior and posterior aspect of the cecum. -Sepsis secondary to above with elevated white cell count and lactic acid -CKD stage III -Reactive ileitis -Gallstones with no evidence with acute cholecystitis. -Recent history of left knee replacement, not active issue and wound is healing. Patient saw his orthopedic prior to hospitalization and it was fine DVT prophylaxis: Subcutaneous he Lovenox GI Prophylaxis: Pepcid Full Code Plan: Diet advanced per surgery IR consultation for drainage of abdominal fluid collection which has been placed. IV fluids Pain medication Surgical team consult, ID following. Continue with Zosyn, metronidazole Surgery team following closely Hold metformin and continue with insulin sliding scale Repeat BMP The impression and plan of care has been dictated by Sasha Lowry, Nurse Practitioner as directed. Dr. Batsheva MD I have performed a history and physical examination and medical decision making of this patient, discussed the same with the dictator, and agree with the dictators assessment and plan as written, documented as a scribe. Based on total visit time, I have performed more than 50% of this visit. Objective - Vital Signs Vital signs: Vital Signs Temp 97.3 F L 05/10/24 08:00 Pulse 72 05/10/24 12:00 Resp 18 05/10/24 12:00 BP 138/78 05/10/24 12:00 Pulse Ox 96 05/10/24 12:00 FiO2 Intake & Output 05/09/24 05/10/24 05/10/24 18:59 06:59 18:59 Weight 95.708 kg Other: Voiding Method Toilet Toilet # Voids 3 1 - Labs CBC & Chem 7: 05/10/24 06:33 05/10/24 06:33 Labs: Abnormal Lab Results - Last 24 Hours (Table) 05/09/24 05/10/24 05/10/24 Range/Units 16:36 06:33 06:33 WBC 10.09 H (4.50-10.00) X 10*3/uL RBC 3.40 L (4.40-5.60) X 10*6/uL Hgb 10.4 L (13.0-17.0) g/dL Hct 31.6 L (39.6-50.0) % Immature Gran # 0.19 H (0.00-0.04) X 10*3/uL PT 12.8 H (10.0-12.5) sec INR 1.2 H (<1.2) Carbon Dioxide 21.0 L (21.6-31.8) mmol/L BUN/Creatinine Ratio 10.75 L (12.00-20.00) Ratio Glucose 111 H (70-110) mg/dL Calcium 8.2 L (8.7-10.3) mg/dL Microbiology - Last 24 Hours (Table) 05/03/24 13:55 Blood Culture - Final Blood 05/03/24 13:31 Blood Culture - Final Blood Assessment and Plan Time with Patient: Less than 30
--- NOTE | 2024-05-11 07:09 | P.PN ---
Progress Note - Text Progress Note Date: 05/10/24 Patient seen and evaluated with at bedside. Drainage catheter bag serous almost urine in color. With extensive surgery and variable serum creatinine levels, body fluid culture sent including creatinine. Urology consultation for possible ureteral injury. Care plan discussed with patient's family.
[2024-05-11 08:51] LABS: Basophils # (A) 0.06 X 10*3/uL (0.00-0.10); Basophils % (A) 0.6 %; Eosinophils # (A) 0.19 X 10*3/uL (0.04-0.35); Eosinophils % (A) 1.9 %; HCT 31.9 % (39.6-50.0); Lymphocytes # (A) 1.88 X 10*3/uL (0.90-5.00); Lymphocytes % (A) 18.4 %; MCH 29.3 pg (27.0-32.0); MCHC 31.3 g/dL (32.0-37.0); MCV 93.5 FL (80.0-97.0); Monocytes # (A) 0.82 X 10*3/uL (0.20-1.00); NRBC Per 100 WBC 0 X 10*3/uL (0.00-0.01); Neutrophils % (A) 68.7 %; Platelet Count 391 X 10*3/uL (140-440); RBC 3.41 X 10*6/uL (4.40-5.60); RDW 14.3 % (11.5-14.5); WBC 10.19 X 10*3/uL (4.50-10.00)
[2024-05-11 08:53] LABS: Blood Urea Nitrogen 15.6 mg/dL (9.0-27.0); Chloride 107 mmol/L (96-109); Glucose 105 mg/dL (70-110); Potassium 4.1 mmol/L (3.5-5.5); Sodium 140 mmol/L (135-145)
[2024-05-11 08:54] LABS: Calcium 8.2 mg/dL (8.7-10.3); Carbon Dioxide 23.3 mmol/L (21.6-31.8)
--- NOTE | 2024-05-11 11:58 | P.PN ---
Subjective Progress Note Date: 05/11/24 CHIEF COMPLAINT: Abdominal pain HISTORY OF PRESENT ILLNESS: The patient is a 68 year old male status post robotic appendectomy with features of gangrenous ruptured appendicitis. Patient status post drain placement for the fluid collection in the cecum. Patient reports since drain placed he has less pressure on that right lower quadrant. He reports having bowel movements. Denies any nausea or vomiting. The fluid from the drain there were concerns that it looked like urine. The fluid creatinine level was 1.1. Urology is on consult. Afebrile. WBC 10.19 Hgb 10 platelets 391 creatinine 1.2. REYNALDO drain with 70 mL serous fluid. Culture pending PHYSICAL EXAM: VITAL SIGNS: Reviewed GENERAL: Well-developed in no acute distress. HEENT: No sclera icterus. Extraocular movements grossly intact. Moist buccal mucosa. Head is atraumatic, normocephalic. Hears conversational speech. No nasal drai nage. NECK: Supple without lymphadenopathy. CHEST: Non-labored respirations and equal bilateral excursions. CARDIOVASCULAR: Palpable 2+ radial pulses. ABDOMEN: Soft. Mildly distended. Nontender REYNALDO drain serous MUSCULOSKELETAL: No clubbing or cyanosis. NEUROLOGIC: No focal or lateralizing signs. Cranial nerves II through XII grossly intact. PSYCH: Appropriate affect. Alert and oriented to person, place and time. SKIN: Well perfused. Good skin turgor. ASSESSMENT: 1. Ruptured appendicitis with sepsis 2. Leukocytosis improved 3. Cholelithiasis 4. Lactic acidosis 5. Renal impairment 6. Status post left knee replacement 7. Anemia 8. Dehydration 9. Sepsis due to appendicitis 10. Acute kidney injury upon presentation 11. Fluid collection along the inferior and posterior aspect of the cecum that may represent a contained leak noted on CT scan PLAN: -Urology consulted to evaluate for possible ureteral injury -Continue to monitor drain output -Continue antibiotics per ID service -Continue low fiber diet -Encourage patient to ambulate -Continue pain management Physician Recyclable Products Sorter note has been reviewed by physician. Signing provider agrees with the documented findings, assessment, and plan of care. Objective - Vital Signs Vital signs: Vital Signs Temp 98.3 F 05/11/24 06:56 Pulse 70 05/11/24 06:56 Resp 20 05/11/24 06:56 BP 123/74 05/11/24 06:56 Pulse Ox 96 05/11/24 06:56 FiO2 Intake & Output 05/10/24 05/11/24 05/11/24 18:59 06:59 18:59 Output Total 60 10 Balance -60 -10 Output: Drainage 60 10 Right Lower Abdomen 60 10 Other: Voiding Method Toilet Toilet Urinal # Voids 2 2 - Labs CBC & Chem 7: 05/11/24 05:42 05/11/24 05:42 Labs: Abnormal Lab Results - Last 24 Hours (Table) 05/11/24 05/11/24 Range/Units 05:42 05:42 WBC 10.19 H (4.50-10.00) X 10*3/uL RBC 3.41 L (4.40-5.60) X 10*6/uL Hgb 10.0 L (13.0-17.0) g/dL Hct 31.9 L (39.6-50.0) % MCHC 31.3 L (32.0-37.0) g/dL Immature Gran # 0.24 H (0.00-0.04) X 10*3/uL Calcium 8.2 L (8.7-10.3) mg/dL Microbiology - Last 24 Hours (Table) 05/10/24 11:45 Gram Stain - Preliminary Cyst
--- NOTE | 2024-05-11 13:18 | P.PN ---
Subjective Progress Note Date: 05/11/24 Principal diagnosis: Reason for follow-up is gangrenous appendicitis and peritonitis Patient is a 68-year-old male past medical history significant for hyperlipidemia osteoarthritis presenting to the hospital for evaluation of abdominal discomfort patient has been diagnosed with a gangrenous appendicitis status post laparoscopic appendectomy and drainage of the abscess. Patient repeat CT abdominal pelvis concerning for possible fluid collection for which the patient is status post CT-guided drainage of abdominal fluid drainage of mostly serous fluid procedure completed on 05/10/2024. On today's evaluation that is 05/11/2024, Patient is afebrile patient is curr ently on room air and denies having any shortness of breath, the patient denies any chest pain or cough, the patient denies any nausea vomiting abdominal pain has decreased to about 2 out of 10 no radiation no diarrhea. Patient white count is 10.19, creatinine is 1.2 abdominal cultures currently pen ding Objective - Vital Signs Vital signs: Vital Signs Temp 98.3 F 05/11/24 06:56 Pulse 70 05/11/24 06:56 Resp 20 05/11/24 06:56 BP 123/74 05/11/24 06:56 Pulse Ox 96 05/11/24 06:56 FiO2 Intake & Output 05/10/24 05/11/24 05/11/24 18:59 06:59 18:59 Output Total 60 10 Balance -60 -10 Output: Drainage 60 10 Right Lower Abdomen 60 10 Other: Voiding Method Toilet Toilet Urinal # Voids 2 2 - Exam GENERAL DESCRIPTION: An elderly male lying in bed in no distress RESPIRATORY SYSTEM: Unlabored breathing , decreased breath sounds at bases HEART: S1 S2 regular rate and rhythm , ABDOMEN: Soft , mild tenderness drainage bag with mostly serous fluid no purulence was noticed EXTREMITIES: No edema feet - Labs CBC & Chem 7: 05/11/24 05:42 05/11/24 05:42 Labs: Abnormal Lab Results - Last 24 Hours (Table) 05/11/24 05/11/24 Range/Units 05:42 05:42 WBC 10.19 H (4.50-10.00) X 10*3/uL RBC 3.41 L (4.40-5.60) X 10*6/uL Hgb 10.0 L (13.0-17.0) g/dL Hct 31.9 L (39.6-50.0) % MCHC 31.3 L (32.0-37.0) g/dL Immature Gran # 0.24 H (0.00-0.04) X 10*3/uL Calcium 8.2 L (8.7-10.3) mg/dL Microbiology - Last 24 Hours (Table) 05/10/24 11:45 Gram Stain - Preliminary Cyst Assessment and Plan (1) Intra-abdominal abscess Current Visit: Yes Status: Acute Code(s): K65.1 - PERITONEAL ABSCESS SNOMED Code(s): 01097583 (2) Leukocytosis Current Visit: Yes Status: Acute Code(s): D72.829 - ELEVATED WHITE BLOOD CELL COUNT, UNSPECIFIED SNOMED Code(s): 450792464 (3) Acute appendicitis Current Visit: Yes Status: Acute Code(s): K35.80 - UNSPECIFIED ACUTE APPENDICITIS SNOMED Code(s): 76932116 Plan: 1patient presented to hospital with abdominal pain did have elevated white co unt patient has been diagnosed with acute gangrenous appendicitis status post laparoscopic laceration appendectomy we will need to cover for the enteric gram- negative both aerobic anaerobes to be the likely pathogen 2-patient did have resolution of his fever patient white count has normalized abdominal cultures are negative however the patient repeat CT abdominal pelvis today shows evidence of fluid collection status post CT-guided drainage with cultures currently pending 3-patient is afebrile white count has been normal, to continue with the Zosyn while waiting for repeat cultures to be finalized to determine discharge antibiotics Patient questions answered Dictation was produced using [employer] dictation software. please excuse any grammatical, word or spelling errors. Time with Patient: Less than 30
--- NOTE | 2024-05-11 13:47 | P.GSCN ---
History of Present Illness Consult date: 05/11/24 Reason for Consult: Rule out ureteral injury History of present illness: This is a 68-year-old male that underwent a robotic appendectomy by Dr. Lee on May 04 for a ruptured appendix. Postoperative course was complicated by a fluid collection requiring IR drainage. Urology is consulted given the appearance of serous fluid concerning for urine in the drain. Denies any previous renal bladder or ureteral surgeries. No previous history of kidney stones, recurrent UTIs or any voiding dysfunction. Denies any flank pain or gross hematuria. Fluid obtained from the urine was sent for creatinine and it came back as 1.2. Of note he did have a CT scan recently done that showed no evidence of hydronephrosis or any bladder pathology. His creatinine is at his baseline. Drain has a put out 70 mL of serous fluid. Review of Systems - Constitutional Reports as per HPI - Cardiovascular Denies chest pain, Denies shortness of breath - Respiratory Denies cough, Denies 7 - Gastrointestinal Reports abdominal pain, Denies nausea, Denies vomiting - Genitourinary Denies dysuria, Denies flank pain, Denies hematuria Past Medical History Past Medical History: Hyperlipidemia, Osteoarthritis (OA) Additional Past Medical History / Comment(s): varicose veins, History of Any Multi-Drug Resistant Organisms: None Reported Past Surgical History: Orthopedic Surgery Additional Past Surgical History / Comment(s): left knee 04/19/24 Past Anesthesia/Blood Transfusion Reactions: Motion Sickness Additional Past Anesthesia/Blood Transfusion Reaction / Comm: never had anesthesia Past Psychological History: Anxiety Past Alcohol Use History: None Reported Past Drug Use History: None Reported - Past Family History Mother Family Medical History: Cancer Father Family Medical History: Myocardial Infarction (ID) Medications and Allergies Home Medications Medication Instructions Recorded Confirmed Type Pravastatin Sodium [Pravachol] 40 mg PO HS 03/29/19 05/03/24 History metFORMIN HCL [Glucophage] 500 mg PO BID 05/03/24 05/03/24 History polyethylene glycoL 3350 [Miralax] 17 gm PO DAILY PRN 05/03/24 05/03/24 History Allergies Allergy/AdvReac Type Severity Reaction Status Date / Time No Known Allergies Allergy Verified 05/03/24 11:39 Surgical - Exam Vital Signs Temp Pulse Resp BP Pulse Ox 98.0 F 91 18 132/76 98 05/03/24 11:34 05/03/24 11:34 05/03/24 11:34 05/03/24 11:34 05/03/24 11:34 - General no distress, no pain - Eyes normal ocular movement, no pale - Respiratory normal expansion, normal respiratory effort - Abdomen Abdomen: soft, non tender - Psychiatric oriented to time, oriented to person, oriented to place Results - Labs 05/11/24 05:42 05/11/24 05:42 Abnormal Lab Results - Last 24 Hours (Table) 05/11/24 05/11/24 Range/Units 05:42 05:42 WBC 10.19 H (4.50-10.00) X 10*3/uL RBC 3.41 L (4.40-5.60) X 10*6/uL Hgb 10.0 L (13.0-17.0) g/dL Hct 31.9 L (39.6-50.0) % MCHC 31.3 L (32.0-37.0) g/dL Immature Gran # 0.24 H (0.00-0.04) X 10*3/uL Calcium 8.2 L (8.7-10.3) mg/dL Microbiology - Last 24 Hours (Table) 05/10/24 11:45 Gram Stain - Preliminary Cyst Diabetes panel 05/11/24 Range/Units 05:42 Sodium 140 (135-145) mmol/L Potassium 4.1 (3.5-5.5) mmol/L Chloride 107 (96-109) mmol/L Carbon Dioxide 23.3 (21.6-31.8) mmol/L BUN 15.6 (9.0-27.0) mg/dL Creatinine 1.2 (0.6-1.5) mg/dL Glucose 105 (70-110) mg/dL Calcium 8.2 L (8.7-10.3) mg/dL Calcium panel 05/11/24 Range/Units 05:42 Calcium 8.2 L (8.7-10.3) mg/dL Pituitary panel 05/11/24 Range/Units 05:42 Sodium 140 (135-145) mmol/L Potassium 4.1 (3.5-5.5) mmol/L Chloride 107 (96-109) mmol/L Carbon Dioxide 23.3 (21.6-31.8) mmol/L BUN 15.6 (9.0-27.0) mg/dL Creatinine 1.2 (0.6-1.5) mg/dL Glucose 105 (70-110) mg/dL Calcium 8.2 L (8.7-10.3) mg/dL Adrenal panel 05/11/24 Range/Units 05:42 Sodium 140 (135-145) mmol/L Potassium 4.1 (3.5-5.5) mmol/L Chloride 107 (96-109) mmol/L Carbon Dioxide 23.3 (21.6-31.8) mmol/L BUN 15.6 (9.0-27.0) mg/dL Creatinine 1.2 (0.6-1.5) mg/dL Glucose 105 (70-110) mg/dL Calcium 8.2 L (8.7-10.3) mg/dL Assessment and Plan Assessment: 68-year-old male status post robotic appendectomy for ruptured appendix. Urologist consulted to go ureteral injury given the fluid appearance. Given the lack of hydronephrosis on CT, and fluid creatinine being at 1.2 I do not see any evidence of any ureteral or bladder injury. I would have anticipated fluid creatinine to be elevated if that was the case. Additionally the likelihood of ureteral injury at the time of appendectomy is very low given the retroperitoneal location of the ureter. I did review his CT and I do not see any evidence of hydronephrosis. From urology standpoint no further evaluation is needed, drain management per general surgery
--- NOTE | 2024-05-11 17:43 | P.PN ---
Subjective patient is seen for follow-up for acute kidney injury. Currently maintained on IV fluids. Serum creatinine has improved to 1.2 . No significant complaints today. Abdominal pain is better. Objective - Vital Signs Vital signs: Vital Signs Temp 98.1 F 05/11/24 13:53 Pulse 74 05/11/24 13:53 Resp 18 05/11/24 13:53 BP 118/69 05/11/24 13:53 Pulse Ox 97 05/11/24 13:53 FiO2 Intake & Output 05/10/24 05/11/24 05/11/24 18:59 06:59 18:59 Output Total 60 10 Balance -60 -10 Weight 95.708 kg Output: Drainage 60 10 Right Lower Abdomen 60 10 Other: Voiding Method Toilet Toilet Toilet Urinal # Voids 2 2 - Exam patient is awake comfortable. No acute distress. Abdomen is soft, distended. Mild tenderness noted. Examination of lower extremity shows no edema 411 DIRECTORY ASSISTANCE OPERATOR exam grossly intact Incision on left knee is intact - Labs CBC & Chem 7: 05/11/24 05:42 05/11/24 05:42 Labs: Abnormal Lab Results - Last 24 Hours (Table) 05/11/24 05/11/24 Range/Units 05:42 05:42 WBC 10.19 H (4.50-10.00) X 10*3/uL RBC 3.41 L (4.40-5.60) X 10*6/uL Hgb 10.0 L (13.0-17.0) g/dL Hct 31.9 L (39.6-50.0) % MCHC 31.3 L (32.0-37.0) g/dL Immature Gran # 0.24 H (0.00-0.04) X 10*3/uL Calcium 8.2 L (8.7-10.3) mg/dL Microbiology - Last 24 Hours (Table) 05/10/24 11:45 Gram Stain - Preliminary Cyst Assessment and Plan Assessment: 1. Acute kidney injury, ATN currently nonoliguric and improved. Patient is maintained on IV fluids. UA shows trace protein and blood. Computed tomography scan of the abdomen does not show any evidence of obstructive uropathy. 2. Ruptured gangrenous appendicitis status post laparoscopic appendectomy on 05/05/2024 with significant lysis of adhesions. 3. Status post recent left knee arthroplasty on 04/19/2024 4. Chronic kidney disease stage IIIa, with baseline creatinine around 1.5 mg/dL. Serum creatinine has improved to about 1.2 mg/dL during this admission. Etiology is most likely diabetic kidney disease. Plan: continue with IV fluids. continue to avoid NSAIDs Consider adding JOHAN inhibitor's as outpatient
[2024-05-11] MEDS: DICLOFENAC SODIUM GEL 50 GM TUBE TOPICAL SCH (17:46)
--- NOTE | 2024-05-11 23:51 | P.PN ---
Subjective Progress Note Date: 05/11/24 Patient is a pleasant 68 years old male with past medical history of multiple medical problems Presents because of abdominal pain for a few days Whatley like mild event patient was sitting in chair not an distress. Pain states is nonradiating nonspecific in quality no precipitating or relieving factors. Patient reports no vomiting. Patient usually constipated but he had loose bowel movements earlier today No other specific complaint and is just urine. No headache dizziness weakness or confusion He denies smoking alcohol or illicit drugs His PCP is Dr. Castillo Vital stable and is afebrile He has mild leukocytosis at 17,000, creatinine at baseline 1.5 as he has CKD stage III He has some elevated lactic acid 2.3 came back to reference range however he is continued on normal saline at 130 mL/h EKG showing sinus rhythm at [address]-T changes CT of the abdomen and pelvis showing gallstones with no hydronephrosis but dilated complex appendix with 22 x 12 mm of plebolith 05/05/24 Patient is status post robotic assisted laparoscopic lysis of adhesions and appendectomy. Today is postop day #1 Patient is fully awake and oriented at baseline, no distress and he looks relaxed. He has some pain at the surgical site which is expected No vomiting he is tolerating liquid diet No chest pain or dyspnea. He is also getting normal saline at 130 mL/h. His creatinine is 1.7 from 1.3 yesterday which is still within the range of his chronic kidney disease stage III Leukocytosis improving, down to 12,000 He has low-grade fever. He is on Zosyn. 05/06/24 Patient is status post appendectomy. Pathology pending He has some pain at the surgical site Continue on liquid diet which he tolerates well He has chronic kidney disease started on IV fluids, creatinine improving with nephrology being consulted Remains on Zosyn with ID team on the case No new complaint 05/07/2024 Is evaluated today in follow-up on the medical floor. Patient is postoperative day #3 laparoscopic appendectomy and lysis of adhesions. Patient is reporting minimal abdominal pain at this time. He has had a bowel movement and he is tolerating clear liquid diet he is hoping to have diet advanced and we will leave this up to the surgeon. His white blood cell count is 10.7, his renal function has normalized with a BUN of 19 and a creatinine of 1.08 his sodium level is 135. 05/08/2024 Patient is evaluated in follow up today. He is having bowel movements. He remains on liquid diet was upgraded to full liquid and tolerating. He is postoperative day #4 appendectomy. Continues on IV flagyl and IV zosyn. Sodium 138, BUN 17.3 creatinine 1.2, magnesium 2.1. 05/09/2024 Patient evaluated in follow up. Sitting up in the chair. Reporting mild generalized abdominal discomfort. Diet upgraded to regular diet. Postoperative day #5 appendectomy for ruptured appendix. On IV flagyl and IV zosyn. Patient had an abdominal pelvis CT today reveals a 9.4 x 8.8 x 6.7 cm fluid collection along the inferior and posterior aspect of the cecum that may represent a contained leak. Possible small peritoneal abscesses. Possible second site of contained leak along the left lateral margin of the staple line. Mild pelvic free fluid. White blood cell count 9.76, hgb 10.8, sodium 140, potassium 3.6, BUN 11.4, creatinine 1.3. 05/10/2024 Patient evaluated today in follow up. Patient underwent CT guided abscess drainage with pigtail catheter placement. Drainage is serous in color and has been sent for culture. Patient remains on antibiotics in the form of IV zosyn and IV metronidazole. Patients may complaint is pain to the right hip. He has prior history of hip replacement. 05/11/2024 Patient is evaluated today in follow up sitting up in the chair. Had right hip xray with no acute findings. Patient continues with pigtail catheter and drainage bag; 70 mls of serous drainage. Cultures are pending at this time. Continues on IV zosyn and IV metronidazole. White blood cell count 10.19, hgb 10.0. Sodium 140, potassium 4.1, BUN 15.6, creatinine 1.2. Review of Systems Constitutional: Denied any fatigue denied any fever. Cardio vascular: denied any chest pain, palpitations Gastrointestinal: denied any nausea, vomiting, diarrhea Pulmonary: Denied any shortness of breath cough Neurologic denied any new focal deficits All inpatient medications were reviewed and appropriate changes in these medications as dictated in the interval history and assessment and plan. PHYSICAL EXAMINATION: GENERAL: The patient is alert and oriented x3, not in any acute distress. Well developed, well nourished. HEENT: Pupils are round and equally reacting to light. EOMI. No scleral icterus. No conjunctival pallor. Normocephalic, atraumatic. No pharyngeal erythema. No thyromegaly. CARDIOVASCULAR: S1 and S2 present. No murmurs, rubs, or gallops. PULMONARY: Chest is clear to auscultation, no wheezing or crackles. ABDOMEN: S Soft, right lower quadrant tenderness, nondistended, normoactive bowel sounds. No palpable organomegaly. MUSCULOSKELETAL: No joint swelling or deformity. EXTREMITIES: No cyanosis, clubbing, or pedal edema. NEUROLOGICAL: Gross neurological examination did not reveal any focal deficits. SKIN: No rashes. Assessment and plan Assessment: -ruptured appendicitis with dilated complex appendix with 22 x 12 mm of plebolith. Status post laparoscopic appendectomy on 05/04 -Concern for contained leak fluid collection along the inferior and posterior aspect of the cecum. -Sepsis secondary to above with elevated white cell count and lactic acid -CKD stage III -Reactive ileitis -Gallstones with no evidence with acute cholecystitis. -Recent history of left knee replacement, not active issue and wound is healing. Patient saw his orthopedic prior to hospitalization and it was fine DVT prophylaxis: Subcutaneous he Lovenox GI Prophylaxis: Pepcid Full Code Plan: Diet advanced per surgery IR consultation for drainage of abdominal fluid collection which has been placed. IV fluids Pain medication Surgical team consult, ID following. Continue with Zosyn, metronidazole Surgery team following closely Hold metformin and continue with insulin sliding scale Recommending to ice the right hip and can use voltaren gel. Repeat BMP The impression and plan of care has been dictated by Sasha Lowry, Nurse Practitioner as directed. Dr. Batsheva MD I have performed a history and physical examination and medical decision making of this patient, discussed the same with the dictator, and agree with the dictators assessment and plan as written, documented as a scribe. Based on total visit time, I have performed more than 50% of this visit. Objective - Vital Signs Vital signs: Vital Signs Temp 98.3 F 05/11/24 06:56 Pulse 70 05/11/24 06:56 Resp 20 05/11/24 06:56 BP 123/74 05/11/24 06:56 Pulse Ox 96 05/11/24 06:56 FiO2 Intake & Output 05/10/24 05/11/24 05/11/24 18:59 06:59 18:59 Output Total 60 10 Balance -60 -10 Output: Drainage 60 10 Right Lower Abdomen 60 10 Other: Voiding Method Toilet Toilet Urinal # Voids 2 2 - Labs CBC & Chem 7: 05/11/24 05:42 05/11/24 05:42 Labs: Abnormal Lab Results - Last 24 Hours (Table) 05/10/24 05/10/24 05/11/24 Range/Units 06:33 06:33 05:42 WBC 10.09 H 10.19 H (4.50-10.00) X 10*3/uL RBC 3.40 L 3.41 L (4.40-5.60) X 10*6/uL Hgb 10.4 L 10.0 L (13.0-17.0) g/dL Hct 31.6 L 31.9 L (39.6-50.0) % MCHC 31.3 L (32.0-37.0) g/dL Immature Gran # 0.19 H 0.24 H (0.00-0.04) X 10*3/uL Carbon Dioxide 21.0 L (21.6-31.8) mmol/L BUN/Creatinine Ratio 10.75 L (12.00-20.00) Ratio Glucose 111 H (70-110) mg/dL Calcium 8.2 L (8.7-10.3) mg/dL 05/11/24 Range/Units 05:42 WBC (4.50-10.00) X 10*3/uL RBC (4.40-5.60) X 10*6/uL Hgb (13.0-17.0) g/dL Hct (39.6-50.0) % MCHC (32.0-37.0) g/dL Immature Gran # (0.00-0.04) X 10*3/uL Carbon Dioxide (21.6-31.8) mmol/L BUN/Creatinine Ratio (12.00-20.00) Ratio Glucose (70-110) mg/dL Calcium 8.2 L (8.7-10.3) mg/dL Microbiology - Last 24 Hours (Table) 05/10/24 11:45 Gram Stain - Preliminary Cyst Assessment and Plan Time with Patient: Less than 30
[2024-05-12 08:52] VITALS: RESP 17
[2024-05-12 09:19] LABS: Basophils # (A) 0.08 X 10*3/uL (0.00-0.10); Basophils % (A) 0.9 %; Eosinophils # (A) 0.23 X 10*3/uL (0.04-0.35); Eosinophils % (A) 2.6 %; HCT 32.4 % (39.6-50.0); HGB 10.5 g/dL (13.0-17.0); Lymphocytes # (A) 1.66 X 10*3/uL (0.90-5.00); Lymphocytes % (A) 18.7 %; MCH 30.7 pg (27.0-32.0); MCHC 32.4 g/dL (32.0-37.0); MCV 94.7 FL (80.0-97.0); Mean Platelet Volume 9.8 FL (9.5-12.2); Monocytes # (A) 0.76 X 10*3/uL (0.20-1.00); Monocytes % (A) 8.5 %; NRBC Per 100 WBC 0 X 10*3/uL (0.00-0.01); Neutrophils # (A) 5.94 X 10*3/uL (1.80-7.70); Neutrophils % (A) 66.8 %; Platelet Count 371 X 10*3/uL (140-440); RBC 3.42 X 10*6/uL (4.40-5.60); RDW 14.3 % (11.5-14.5); WBC 8.89 X 10*3/uL (4.50-10.00)
--- NOTE | 2024-05-12 10:04 | P.PN ---
Subjective Patient is seen in follow-up for acute kidney injury on chronic kidney disease. Renal function stable. Tolerating oral intake. No vomiting or diarrhea. Wants to go home. Vital signs are stable. General: No acute distress. HEENT: Head exam is unremarkable. LUNGS: No audible rhonchi or wheezes. HEART: Rate and Rhythm are regular. ABDOMEN: Abdomin nontender. EXTREMITITES: No edema. Objective - Vital Signs Vital signs: Vital Signs Temp 98.3 F 05/12/24 07:33 Pulse 81 05/12/24 07:33 Resp 17 05/12/24 07:33 BP 161/88 05/12/24 07:33 Pulse Ox 95 05/12/24 07:33 FiO2 Intake & Output 05/11/24 05/12/24 05/12/24 18:59 06:59 18:59 Weight 95.708 kg Other: Voiding Method Toilet # Voids 3 2 - Labs CBC & Chem 7: 05/12/24 06:20 05/11/24 05:42 Labs: Abnormal Lab Results - Last 24 Hours (Table) 05/12/24 Range/Units 06:20 RBC 3.42 L (4.40-5.60) X 10*6/uL Hgb 10.5 L (13.0-17.0) g/dL Hct 32.4 L (39.6-50.0) % Immature Gran # 0.22 H (0.00-0.04) X 10*3/uL Microbiology - Last 24 Hours (Table) 05/10/24 11:45 Gram Stain - Preliminary Cyst Assessment and Plan Plan: Assessment: 1. Acute kidney injury secondary to ATN. Improved. Creatinine stable at 1.2. No hydronephrosis noted on imaging. 2. Chronic kidney disease stage IIIa with baseline creatinine near 1.5 secondary to diabetic kidney disease. 3. Ruptured gangrenous appendicitis status post laparoscopic appendectomy May 05, 2024. Plan: Encouraged oral intake. Hep-Lock IV fluids. Follow-up outpatient 1 to 2 weeks postdischarge.
--- NOTE | 2024-05-12 14:01 | P.PN ---
Progress Note - Text Progress Note Date: 05/12/24 CHIEF COMPLAINT: Abdominal pain HISTORY OF PRESENT ILLNESS: The patient is a 68 year old male status post robotic appendectomy with features of gangrenous ruptured appendicitis. Patient status post drain placement for the fluid collection in the cecum. Patient reports since drain placed he has less pressure on that right lower quadrant. He reports having bowel movements. Denies any nausea or vomiting. NAEO PHYSICAL EXAM: VITAL SIGNS: Reviewed GENERAL: Well-developed in no acute distress. HEENT: No sclera icterus. Extraocular movements grossly intact. Moist buccal mucosa. Head is atraumatic, normocephalic. Hears conversational speech. No nasal drainage. NECK: Supple without lymphadenopathy. CHEST: Non-labored respirations and equal bilateral excursions. CARDIOVASCULAR: Palpable 2+ radial pulses. ABDOMEN: Soft. Mildly distended. Nontender REYNALDO drain serous MUSCULOSKELETAL: No clubbing or cyanosis. NEUROLOGIC: No focal or lateralizing signs. Cranial nerves II through XII grossly intact. PSYCH: Appropriate affect. Alert and oriented to person, place and time. SKIN: Well perfused. Good skin turgor. ASSESSMENT: 1. Ruptured appendicitis with sepsis 2. Leukocytosis improved 3. Cholelithiasis 4. Lactic acidosis 5. Renal impairment 6. Status post left knee replacement 7. Anemia 8. Dehydration 9. Sepsis due to appendicitis 10. Acute kidney injury upon presentation 11. Fluid collection along the inferior and posterior aspect of the cecum that may represent a contained leak noted on CT scan PLAN: -Urology consulted to evaluate for possible ureteral injury -Continue to monitor drain output -Continue antibiotics per ID service -Continue low fiber diet -Encourage patient to ambulate -Continue pain management -Ok for d/c from surgery standpoint
--- NOTE | 2024-05-12 15:08 | P.PN ---
Subjective Progress Note Date: 05/12/24 Principal diagnosis: Reason for follow-up is gangrenous appendicitis and peritonitis Patient is a 68-year-old male past medical history significant for hyperlipidemia osteoarthritis presenting to the hospital for evaluation of abdominal discomfort patient has been diagnosed with a gangrenous appendicitis status post laparoscopic appendectomy and drainage of the abscess. Patient repeat CT abdominal pelvis concerning for possible fluid collection for which the patient is status post CT-guided drainage of abdominal fluid drainage of mostly serous fluid procedure completed on 05/10/2024. On today's evaluation that is 05/12/2024, patient has been afebrile, patient is breathing comfortably and is currently on room air, patient denies having any significant cough no chest pain shortness of breath, patient denies nausea vomiting patient abdominal pain has significantly increased in intensity no diarrhea. Patient white count is 8.89 cultures so far pending Objective - Vital Signs Vital signs: Vital Signs Temp 98.3 F 05/12/24 07:33 Pulse 81 05/12/24 07:33 Resp 17 05/12/24 07:33 BP 161/88 05/12/24 07:33 Pulse Ox 95 05/12/24 07:33 FiO2 Intake & Output 05/11/24 05/12/24 05/12/24 18:59 06:59 18:59 Weight 95.708 kg Other: Voiding Method Toilet # Voids 3 2 - Exam GENERAL DESCRIPTION: An elderly male lying in bed in no distress RESPIRATORY SYSTEM: Unlabored breathing , decreased breath sounds at bases HEART: S1 S2 regular rate and rhythm , ABDOMEN: Soft , mild tenderness drainage bag with mostly serous fluid no purulence was noticed EXTREMITIES: No edema feet - Labs CBC & Chem 7: 05/12/24 06:20 05/11/24 05:42 Labs: Abnormal Lab Results - Last 24 Hours (Table) 05/12/24 Range/Units 06:20 RBC 3.42 L (4.40-5.60) X 10*6/uL Hgb 10.5 L (13.0-17.0) g/dL Hct 32.4 L (39.6-50.0) % Immature Gran # 0.22 H (0.00-0.04) X 10*3/uL Microbiology - Last 24 Hours (Table) 05/10/24 11:45 Gram Stain - Preliminary Cyst Body Fluid Culture - Preliminary Assessment and Plan (1) Intra-abdominal abscess Current Visit: Yes Status: Acute Code(s): K65.1 - PERITONEAL ABSCESS SNOMED Code(s): 09907437 (2) Leukocytosis Current Visit: Yes Status: Acute Code(s): D72.829 - ELEVATED WHITE BLOOD CELL COUNT, UNSPECIFIED SNOMED Code(s): 031595384 (3) Acute appendicitis Current Visit: Yes Status: Acute Code(s): K35.80 - UNSPECIFIED ACUTE APPENDICITIS SNOMED Code(s): 92015491 Plan: 1patient presented to hospital with abdominal pain did have elevated white count patient has been diagnosed with acute gangrenous appendicitis status post laparoscopic laceration appendectomy we will need to cover for the enteric gram- negative both aerobic anaerobes to be the likely pathogen 2-patient did have resolution of his fever patient white count has normalized abdominal cultures are negative however the patient repeat CT abdominal pelvis today shows evidence of fluid collection status post CT-guided drainage with cultures currently pending 3-patient is afebrile white count normalized patient and the has been insisting on going home aware of the fact that the culture is not final if surgically the patient will consider oral Ceftin and Flagyl however he may need to change antibiotics if the culture grows something different this has been discussed with the medical team Dictation was produced using [employer] dictation software. please excuse any grammatical, word or spelling errors. Time with Patient: Less than 30
[2024-05-12 15:28] VITALS: BP 130/77; PULSE 87; TEMP 98
--- NOTE | 2024-05-14 15:57 | P.DS ---
Providers Date of admission: 05/03/24 13:35 Attending physician: Jackson Mcmullen MD Consults: 05/03/24 13:38 Consult Physician Urgent Consulting Provider: Bernice Lee Consult Reason/Comments: Acute appendicitis, cholelithiasis Do you want consulting provider notified?: Already Contacted 05/03/24 15:52 Consult Physician Routine Consulting Provider: [facility] Consult Reason/Comments: [facility] Do you want consulting provider notified?: Yes 05/03/24 15:56 Consult Physician Routine Consulting Provider: Hu Olivia Consult Reason/Comments: Recent L knee replacement 04/19/24 Do you want consulting provider notified?: Yes 05/05/24 10:57 Consult Physician Routine Consulting Provider: Bing Shi Consult Reason/Comments: Ruptured appendicitis with localized peritonitis Do you want consulting provider notified?: Yes Consult Physician Urgent Consulting Provider: Juan Taveras Consult Reason/Comments: Acute on chronic kidney disease Do you want consulting provider notified?: Yes 05/11/24 07:59 Consult Physician Routine Consulting Provider: Young Molina Consult Reason/Comments: Possible ureteral injury Do you want consulting provider notified?: Yes Primary care physician: Tito Richtre [facility] Course: Final Diagnosis -ruptured appendicitis with dilated complex appendix with 22 x 12 mm of plebolith. Status post laparoscopic appendectomy on 05/04 -Concern for contained leak fluid collection along the inferior and posterior aspect of the cecum. -Sepsis secondary to above with elevated white cell count and lactic acid -CKD stage III -Reactive ileitis -Gallstones with no evidence with acute cholecystitis. -Recent history of left knee replacement, not active issue and wound is healing. Patient saw his orthopedic prior to hospitalization and it was fine Discharge Disposition Stable for discharge home. He will continue a low fiber diet for the next few weeks. Patient will continue with the drainage tube in place and follow-up with general surgery in the office in 1 week. Patient advised to return if he is having fever drainage or redness around the pigtail catheter site. He will continue a 2-week course of oral antibiotics and follow-up with Dr. Shi in the office. Repeat blood work in 2 to 3 days. Follow-up with his PCP Dr. Tito Castillo in 1 to 2 days. Hospital Course Patient is a pleasant 68 years old male with past medical history of chronic kidney disease stage III, recent history of left knee replacement. Presents because of abdominal pain for a few days, Pain states is nonradiating nonspecific in quality no precipitating or relieving factors. Patient reports no vomiting. He had a loose bowel movement. No other specific complaint and is just urine. No headache dizziness weakness or confusion. Was found to have a white blood cell count of 17, he is at his baseline creatinine of 1.5 on admission. He did have a mildly elevated lactic acid 2.3 which he was given fluid resuscitation for and has since normalized. Patient due to the abdominal pain and tenderness had a CT of the abdomen pelvis done showing gallstones with no hydronephrosis however there was a dilated complex appendix with 22 x 12 mm of plebolith. Patient was taken on May 05 for a robotic assisted laparoscopic lysis of adhesions and appendectomy. Appendix did rupture. Patient was given IV antibiotics and monitored on the medical floor. He is having mild abdominal pain however he has been tolerating diet and has had a bowel movement since surgery. He went back to repeat imaging with a another abdominal pelvis [facility] revealed a 9.4 x 8.8 x 6.7 fluid collection along the inferior and posterior aspect of the cecum that may represent a contained leak. There was a possible small peritoneal abscess. Possible second site of contained leak along the left lateral margin of the staple line. Mild pelvic free fluid. Patient's white blood cell count has since normalized. However he went for CT-guided IR placement of drain for the abscess. This was sent for culture which is currently negative. Continues to have a drainage tube in place however he is asking for discharge home. He is not having any fever as he is white blood cell count has normalized he does not have any shortness of breath he has mild abdominal pain however he is passing gas having bowel movements. He is urinating without difficulty. Being followed by infectious disease and recommending discharge on oral Ceftin and oral metronidazole for the next 2 weeks. Patient was also cleared by general surgery. Please see medication reconciliation for a list of current medications. Thank you for allowing us to participate in the care of this patient. The impression and plan of care has been dictated by Sasha Lowry, Nurse Practitioner as directed. Dr. Batsheva MD I have performed a history and physical examination and medical decision making of this patient, discussed the same with the dictator, and agree with the dictators assessment and plan as written, documented as a scribe. Based on total visit time, I have performed more than 50% of this visit. Patient Condition at Discharge: Stable Plan - Discharge Summary Discharge Rx Participant: Yes New Discharge Prescriptions: New cefUROXime axetiL [Ceftin] 500 mg PO BID #28 tab Acetaminophen Tab [Tylenol] 1,000 mg PO Q6HR tab metroNIDAZOLE [Flagyl] 500 mg PO TID #42 tab Diclofenac Sodium Gel [Voltaren 1% Gel] 4 gm TOPICAL QID gm Famotidine [Pepcid] 20 mg PO DAILY #30 tablet Continue Pravastatin Sodium [Pravachol] 40 mg PO HS polyethylene glycoL 3350 [Miralax] 17 gm PO DAILY PRN PRN Reason: Constipation metFORMIN HCL [Glucophage] 500 mg PO BID Discharge Medication List Pravastatin Sodium [Pravachol] 40 mg PO HS 03/29/19 [History] metFORMIN HCL [Glucophage] 500 mg PO BID 05/03/24 [History] polyethylene glycoL 3350 [Miralax] 17 gm PO DAILY PRN 05/03/24 [History] Acetaminophen Tab [Tylenol] 1,000 mg PO Q6HR tab 05/12/24 [Rx] Diclofenac Sodium Gel [Voltaren 1% Gel] 4 gm TOPICAL QID gm 05/12/24 [Rx] Famotidine [Pepcid] 20 mg PO DAILY #30 tablet 05/12/24 [Rx] cefUROXime axetiL [Ceftin] 500 mg PO BID #28 tab 05/12/24 [Rx] metroNIDAZOLE [Flagyl] 500 mg PO TID #42 tab 05/12/24 [Rx] Follow up Appointment(s)/Referral(s): Bernice Lee MD [STAFF PHYSICIAN] - 1 Week [facility] [NON-STAFF] - As Needed ([facility] will call you to schedule your in home physical therapy visits. ) Tito Richter DO [Primary Care Provider] - 1-2 days Bing Shi MD [STAFF PHYSICIAN] - 1 Week Nimo Dykes MD [STAFF PHYSICIAN] - 1 Week Ambulatory/Diagnostic Orders: Basic Metabolic Panel [LAB.AMB] Time Frame: 3 Days, Location: None Selected Complete Blood Count w/diff [LAB.AMB] Location: None Selected Patient Instructions/Handouts: Low Fiber Diet (DC), Open Appendectomy (DC) Activity/Diet/Wound Care/Special Instructions: Discharge home with drainage back in place. Please notify provider if there is any redness or swelling around the drainage tube site. Monitor for fever. Continue to use incentive spirometer 10 x an hour while awake. Continue with tylenol for pain. Make appt on Tuesday to follow up with Dr. Lee in the office Repeat blood work in 2 to 3 days Continue oral antibiotics Continue on low fiber diet until follow up with Dr. Lee Can continue to use voltaren and ice to the right hip. Voltaren can be bought over the counter. Discharge Disposition: HOME WITH HOME HEALTH SERVICES
== END 2024-05-12 16:16 | disposition home health service (06) | DRG 853 ==
LOC: EC 11:31 → 4SSUR 13:35
PROVIDERS: ADMIT Internal Medicine; ATTEND Internal Medicine
PROC: 0DTJ4ZZ Resection of Appendix, Percutaneous Endoscopic Approach (ICD-10-PCS; principal; 2024-05-05)
PROC: 0DNW4ZZ Release Peritoneum, Percutaneous Endoscopic Approach (ICD-10-PCS; 2024-05-05)
PROC: 8E0W4CZ Robotic Assisted Procedure of Trunk Region, Percutaneous Endoscopic Approach (ICD-10-PCS; 2024-05-05)
DX: A41.9 Sepsis, unspecified organism (principal); K35.33 Acute appendicitis with perforation, localized peritonitis, and gangrene, with abscess; N17.0 Acute kidney failure with tubular necrosis; E87.20 Acidosis, unspecified; K80.10 Calculus of gallbladder with chronic cholecystitis without obstruction; E11.22 Type 2 diabetes mellitus with diabetic chronic kidney disease; D63.1 Anemia in chronic kidney disease; E78.5 Hyperlipidemia, unspecified; E86.0 Dehydration; F41.9 Anxiety disorder, unspecified; K52.9 Noninfective gastroenteritis and colitis, unspecified; K59.00 Constipation, unspecified; N18.31 Chronic kidney disease, stage 3a; Z79.84 Long term (current) use of oral hypoglycemic drugs; Z79.899 Other long term (current) drug therapy; Z96.649 Presence of unspecified artificial hip joint; Z96.652 Presence of left artificial knee joint
CPT/HCPCS: 36415; 73502; 74176; 75989; 80048; 80053; 81001; 82570; 83605; 83690; 83735; 85025; 85610; 87040; 87070; 87075; 87205; 88304; 93005; 93970; 96360; 96361; 99285

== ENCOUNTER 2024-05-18 10:12 | Day surgery (SDC) | payer BC, MEDICARE ==
[2024-05-18 13:06] VITALS: BP 127/78; PULSE 78; RESP 16; TEMP 97.7
== END 2024-05-18 13:00 | disposition home or self-care (01) ==
LOC: RADPROMAIN 10:12
PROVIDERS: ATTEND Radiology Body Imaging
DX: Z48.03 Encounter for change or removal of drains (principal)
CPT/HCPCS: 99213

== ENCOUNTER → 2024-05-18 | Outpatient (CLI) | payer BC ==
[2024-05-18 20:23] LABS: Basophils # (A) 0.08 X 10*3/uL (0.00-0.10); Basophils % (A) 0.6 %; Eosinophils # (A) 0.07 X 10*3/uL (0.04-0.35); Eosinophils % (A) 0.6 %; HGB 12.3 g/dL (13.0-17.0); Lymphocytes # (A) 2.22 X 10*3/uL (0.90-5.00); Lymphocytes % (A) 17.7 %; MCH 29.6 pg (27.0-32.0); MCHC 31.5 g/dL (32.0-37.0); MCV 93.8 FL (80.0-97.0); Mean Platelet Volume 10.1 FL (9.5-12.2); Monocytes # (A) 0.95 X 10*3/uL (0.20-1.00); Monocytes % (A) 7.6 %; NRBC Per 100 WBC 0 X 10*3/uL (0.00-0.01); Neutrophils # (A) 9.13 X 10*3/uL (1.80-7.70); Neutrophils % (A) 72.7 %; Platelet Count 561 X 10*3/uL (140-440); RBC 4.16 X 10*6/uL (4.40-5.60); RDW 14.6 % (11.5-14.5); WBC 12.55 X 10*3/uL (4.50-10.00)
[2024-05-18 20:45] LABS: Blood Urea Nitrogen 24.5 mg/dL (9.0-27.0); Calcium 9.8 mg/dL (8.7-10.3); Carbon Dioxide 23.8 mmol/L (21.6-31.8); Chloride 97 mmol/L (96-109); Glucose 99 mg/dL (70-110); Potassium 4.9 mmol/L (3.5-5.5); Sodium 135 mmol/L (135-145)
== END | disposition home or self-care (01) ==
LOC: LABWHC1 13:06
PROVIDERS: ATTEND Nurse Practitioner Family
DX: K37 Unspecified appendicitis (principal)
CPT/HCPCS: 36415; 80048; 85025

== ENCOUNTER → 2024-05-18 | Outpatient (CLI) | payer BC ==
--- NOTE | 2024-05-18 12:18 | CT ---
EXAMINATION TYPE: CT abdomen pelvis wo con CT DLP: 832.2 mGycm, Automated exposure control for dose reduction was used. DATE OF EXAM: 05/18/2024 12:02 PM COMPARISON: CT abdomen pelvis 05/09/2024, 05/03/2024, CT-guided abscess drainage 05/10/2024. CLINICAL INDICATION:Male, 68 years old with history of K35.30 Acute appendicitis w/peritonitis; Acute appendicitis w/peritonitis TECHNIQUE: Standard CT of the abdomen and pelvis following the administration of oral contrast. Brown ited dilated due to lack of intravenous contrast. Coronal and sagittal reformats were performed. FINDINGS: LOWER CHEST: Unremarkable ABDOMEN LIVER: Unremarkable GALLBLADDER AND BILE DUCTS: Cholelithiasis. No biliary duct dilatation. PANCREAS: Unremarkable. SPLEEN: Unremarkable. ADRENAL GLANDS: Unremarkable. KIDNEYS AND URETERS: No evidence of hydronephrosis or renal calculus. PELVIS BLADDER: Poorly visualized from streak artifact of the hip prosthesis. REPRODUCTIVE: Poorly visualized from streak artifact of the hip prosthesis. ABDOMEN & PELVIS STOMACH AND BOWEL: Stomach and duodenum are unremarkable. Postsurgical changes from appendectomy in t he right lower quadrant with decreased size of fluid collection inferior to the appendectomy site wit hin the retroperitoneum measuring 3.4 x 2.5 cm. Interval retraction of pigtail catheter with distal t ip within the anterior abdominal wall abutting the anterior aspect of the rectus abdominis muscle. En teric contrast reaches the descending colon. No extravasation of contrast from the bowel identified. Decreased right lower quadrant fat stranding inflammatory changes. No evidence of bowel obstruction. PERITONEUM: No evidence of pneumoperitoneum. There is a right anterior lower wall approach pigtail ca theter identified with distal tip curling just anterior to the right rectus abdominis muscle. This coley s been retracted from previously seen fluid flexion which has decreased in size. The fluid collection now measures 3.4 x 2.5 cm (series 3, image 69). Additional smaller fluid within the mid abdominal me sentery has resolved. Marginal decrease in size of fluid collection along the left lateral serosal lyn rface of the ascending colon measuring 2.4 cm, previously 2.9 cm. VASCULATURE: No evidence of aortic aneurysm. MUSCULOSKELETAL: No acute osseous abnormalities. DISH lower thoracic spine. Advanced hypertrophic fac et arthropathy the lumbar spine. Bilateral hip arthroplasty changes. LYMPH NODES: No gross evidence for lymphadenopathy. SOFT TISSUE/ABDOMINAL WALL: Similar stranding within the left anterior abdominal wall with skin thick ening at the level of the kidneys likely related to prior surgical intervention. No organized fluid c ollection. IMPRESSION: 1. Interval retraction of pigtail catheter from right lower quadrant fluid collection. The distal ti p of the catheter is identified just anterior to the right rectus abdominis muscle now. The fluid col lection has decreased in size now measuring 3.4 x 2.5 cm, previously 9.4 x 6.7 cm. 2. Marginal decrease in size of small fluid collection along the lateral aspect of the ascending col on measuring 2.3 cm, previously 2.9 cm. Resolution of previous demonstrated mid mesentery small fluid collection. 3. Cholelithiasis.
== END | disposition home or self-care (01) ==
LOC: RADCTMAIN 10:07
PROVIDERS: ATTEND Surgery Plastic and Reconstructive Surgery
DX: K35.30 Acute appendicitis with localized peritonitis, without perforation or gangrene (principal); K80.20 Calculus of gallbladder without cholecystitis without obstruction
CPT/HCPCS: 74176

== ENCOUNTER 2024-09-27 05:38 | Emergency (ER) | payer BC, MEDICARE ==
[2024-09-27] MEDS: ACETAMINOPHEN TAB 500 MG TAB PO STA (06:40)
[2024-09-27] MEDS: ONDANSETRON 4 MG/2 ML VIAL IVP STA (06:40)
--- NOTE | 2024-09-27 06:40 | ED ---
General Adult HPI - General Chief complaint: Nausea/Vomiting/Diarrhea Stated complaint: Weakness, NVD Time Seen by Provider: 09/27/24 06:37 Source: patient, family (), RN notes reviewed, old records reviewed Mode of arrival: wheelchair Limitations: no limitations - History of Present Illness Initial comments: 68-year-old male presenting to the ER with a chief complaint of weakness. is aiding in HPI. Patient reports for the past 3 days he has been feeling weak with nausea, vomiting and 1 episode of diarrhea. He does report fevers as well. Patient states he also feels lightheaded as" weak". He denies any dizziness, chest pain, shortness of breath or feeling of passing out. Patient has tried [id number] Tylenol for symptom control without relief. Patient reports congestion and recent cough as well. He denies any urinary complaints or peripheral edema. - Related Data Home Medications Medication Instructions Recorded Confirmed Pravastatin Sodium [Pravachol] 40 mg PO HS 03/29/19 05/03/24 metFORMIN HCL [Glucophage] 500 mg PO BID 05/03/24 05/03/24 polyethylene glycoL 3350 [Miralax] 17 gm PO DAILY PRN 05/03/24 05/03/24 Previous Rx's Medication Instructions Recorded Acetaminophen Tab [Tylenol] 1,000 mg PO Q6HR tab 05/12/24 Diclofenac Sodium Gel [Voltaren 1% 4 gm TOPICAL QID gm 05/12/24 Gel] Famotidine [Pepcid] 20 mg PO DAILY #30 tablet 05/12/24 cefuroxime axetiL [Ceftin] 500 mg PO BID #28 tab 05/12/24 metroNIDAZOLE [Flagyl] 500 mg PO TID #42 tab 05/12/24 Ondansetron Odt [Zofran Odt] 4 mg PO Q8HR PRN #10 tab 09/27/24 Allergies Allergy/AdvReac Type Severity Reaction Status Date / Time No Known Allergies Allergy Verified 09/27/24 05:45 Review of Systems ROS Statement: Those systems with pertinent positive or pertinent negative responses have been documented in the HPI. ROS Other: All systems not noted in ROS Statement are negative. Past Medical History Past Medical History: Hyperlipidemia, Osteoarthritis (OA) Additional Past Medical History / Comment(s): varicose veins, History of Any Multi-Drug Resistant Organisms: None Reported Past Surgical History: Appendectomy, Joint Replacement, Orthopedic Surgery Additional Past Surgical History / Comment(s): left knee 04/19/24 Past Anesthesia/Blood Transfusion Reactions: Motion Sickness Additional Past Anesthesia/Blood Transfusion Reaction / Comment(s): never had anesthesia Past Psychological History: Anxiety Smoking Status: Never smoker Past Alcohol Use History: None Reported Past Drug Use History: None Reported - Past Family History Mother Family Medical History: Cancer Father Family Medical History: Myocardial Infarction ([place]) General Exam Limitations: no limitations General appearance: alert, in no apparent distress Respiratory exam: Present: normal lung sounds bilaterally. Absent: respiratory distress, wheezes, rales, rhonchi, stridor Cardiovascular Exam: Present: regular rate, normal rhythm, systolic murmur GI/Abdominal exam: Present: soft, tenderness (epigastric), normal bowel sounds. Absent: distended, guarding, rebound, rigid Neurological exam: Present: alert, oriented X3, CN II-XII intact Skin exam: Present: warm, dry, intact, normal color. Absent: rash Course Vital Signs 09/27/24 09/27/24 09/27/24 05:45 07:23 08:40 Temperature 100.0 F H 99.1 F Pulse Rate 87 75 77 Respiratory 15 14 14 Rate Blood Pressure 135/71 110/64 117/66 O2 Sat by Pulse 96 95 94 L Oximetry 09/27/24 09:07 Temperature 98.5 F Pulse Rate 73 Respiratory 14 Rate Blood Pressure 107/65 O2 Sat by Pulse 94 L Oximetry Medical Decision Making - Medical Decision Making Was pt. sent in by a medical professional or institution (, PA, SUMMER CLERK, urgent care, hospital, or fdc...) When possible be specific @ -No Did you speak to anyone other than the patient for history (EMS, parent, family, police, friend...)? What history was obtained from this source @ -, at bedside, aiding in HPI past medical history Did you review nursing and triage notes (agree or disagree)? Why? @ -I reviewed and agree with nursing and triage notes Were old charts reviewed (outside hosp., previous admission, EMS record, old EKG, old radiological studies, urgent care reports/EKG's, fdc records)? Report findings @ -No old charts were reviewed Differential Diagnosis (chest pain, altered mental status, abdominal pain women, abdominal pain men, vaginal bleeding, weakness, fever, dyspnea, syncope, headache, dizziness, GI bleed, back pain, seizure, CVA, palpatations, mental health, musculoskeletal)? @ -Differential Fever: Pneumonia, viral URI, endocarditis, myocarditis, pericarditis, otitis, sinusitis, peritonsillar Abscess, retropharyngeal Abscess, epiglottitis, peritonitis, appendicitis, Ivonne cystitis, diverticulitis, hepatitis, colitis, UTI, PID, TOA, pyelonephritis, prostatitis, epididymitis, meningitis, encephalitis, pulmonary embolism, CVA, thyroid storm, pancreatitis, adrenal crisis, cavernous sinus thrombosis, this is not meant to be an all- inclusive list. EKG interpreted by me (3pts min.). @ -As above X-rays interpreted by me (1pt min.). @ -CXR interpreted by me negative for focal consolidation, pneumothorax or pleural effusions. CT interpreted by me (1pt min.). @ -None done U/S interpreted by me (1pt. min.). @ -None done What testing was considered but not performed or refused? (CT, X-rays, U/S, labs)? Why? @ -None What meds were considered but not given or refused? Why? @ -None Did you discuss the management of the patient with other professionals (professionals i.e. , PA, SUMMER CLERK, lab, RT, psych nurse, psych social worker, zipper sewing machine operator, teacher, state patrol officer, cyanide case hardener)? Give summary @ -No Was smoking cessation discussed for >3mins.? @ -No Was critical care preformed (if so, how long)? @ -No Were there social determinants of health that impacted care today? How? (Homelessness, low income, unemployed, alcoholism, drug addiction, transportation, low edu. Level, literacy, decrease access to med. care, [place] [facility], rehab)? @ -No Was there de-escalation of care discussed even if they declined (Discuss DNR or withdrawal of care, Hospice)? DNR status @ -No What co-morbidities impacted this encounter? (DM, HTN, Smoking, COPD, CAD, Cancer, CVA, ARF, Chemo, Hep., AIDS, mental health diagnosis, sleep apnea, morbid obesity)? @ -None Was patient admitted / discharged? Hospital course, mention meds given and route, prescriptions, significant lab abnormalities, going to OR and other pertinent info. @ -Discharge. 68-year-old male presented to the ER with a chief complaint of weakness. Patient is febrile on arrival at 100 otherwise vital stable. Patient in no signs of acute distress. CBC unremarkable. CMP showing a BUN of 34 with a creatinine 1.58 GFR 45 which appears to be patient's baseline. Lactic 1.2. Urinalysis concerning of dehydration with 1+ ketones for which patient received IV fluids. Viral swabs negative. Chest x-ray negative. Symptoms believed to be viral in nature. Patient given p.o. Tylenol for fever control, with improvement. Zofran prescribed. Patient stable for discharge and outpatient follow-up. I advised continued use of [id number] ibuprofen and Tylenol for fever control outpatient. Strict return parameters discussed. Patient discharged in stable condition with follow-up to PCP. Patient verbally expressed understanding and agreement with care plan. Case discussed with ED attending, . Undiagnosed new problem with uncertain prognosis? @ -No Drug Therapy requiring intensive monitoring for toxicity (Heparin, Nitro, Insulin, Cardizem)? @ -No Were any procedures done? @ -No Diagnosis/symptom? @ -Viral illness/nausea Acute, or Chronic, or Acute on Chronic? @ -Acute Uncomplicated (without systemic symptoms) or Complicated (systemic symptoms)? @ -Uncomplicated Side effects of treatment? @ -No Exacerbation, Progression, or Severe Exacerbation? @ -No Poses a threat to life or bodily function? How? (Chest pain, [place], [place], pneumonia, PE, COPD, DKA, ARF, appy, cholecystitis, CVA, Diverticulitis, Homicidal, Suicidal, threat to staff... and all critical care pts) @ -No - Lab Data Result diagrams: 09/27/24 06:00 09/27/24 06:00 Lab Results 09/27/24 09/27/24 09/27/24 Range/Units 06:00 06:00 06:00 WBC 4.3 (3.8-10.6) k/uL RBC 4.99 (4.30-5.90) m/uL Hgb 15.1 (13.0-17.5) gm/dL Hct 45.6 (39.0-53.0) % MCV 91.3 (80.0-100.0) fL MCH 30.2 (25.0-35.0) pg MCHC 33.1 (31.0-37.0) g/dL RDW 13.6 (11.5-15.5) % Plt Count 91 L (150-450) k/uL MPV 8.8 Neutrophils % 86 % Lymphocytes % 6 % Monocytes % 6 % Eosinophils % 0 % Basophils % 0 % Neutrophils # 3.7 (1.3-7.7) k/uL Lymphocytes # 0.2 L (1.0-4.8) k/uL Monocytes # 0.3 (0-1.0) k/uL Eosinophils # 0.0 (0-0.7) k/uL Basophils # 0.0 (0-0.2) k/uL Sodium 134 L (137-145) mmol/L Potassium 3.9 (3.5-5.1) mmol/L Chloride 103 (98-107) mmol/L Carbon Dioxide 20 L (22-30) mmol/L Anion Gap 11 mmol/L BUN 34 H (9-20) mg/dL Creatinine 1.58 H (0.66-1.25) mg/dL Est GFR (CKD-EPI)AfAm 52 (>60 ml/min/1.73 sqM) Est GFR (CKD-EPI)NonAf 45 (>60 ml/min/1.73 sqM) Glucose 169 H (74-99) mg/dL Plasma Lactic Acid Blayne 1.2 (0.7-2.0) mmol/L Calcium 8.8 (8.4-10.2) mg/dL Total Bilirubin 0.8 (0.2-1.3) mg/dL AST 42 (17-59) U/L ALT 33 (4-49) U/L Alkaline Phosphatase 93 (38-126) U/L Total Protein 7.7 (6.3-8.2) g/dL Albumin 4.3 (3.5-5.0) g/dL Amylase 71 (30-110) U/L Lipase 141 (23-300) U/L Urine Color Urine Appearance (Clear) Urine pH (5.0-8.0) Ur Specific Jay[place] (1.001-1.035) Urine Protein (Negative) Urine Glucose (UA) (Negative) Urine Ketones (Negative) Urine Blood (Negative) Urine Nitrite (Negative) Urine Bilirubin (Negative) Urine Urobilinogen (<2.0) mg/dL Ur Leukocyte Esterase (Negative) Urine RBC (0-5) /hpf Urine WBC (0-5) /hpf Ur Squamous Epith Cells (0-4) /hpf Urine Mucus (None) /hpf Influenza Type A (PCR) (Not Detectd) Influenza Type B (PCR) (Not Detectd) RSV (PCR) (Not Detectd) SARS-CoV-2 (PCR) (Not Detectd) 09/27/24 09/27/24 Range/Units 06:46 08:19 WBC (3.8-10.6) k/uL RBC (4.30-5.90) m/uL Hgb (13.0-17.5) gm/dL Hct (39.0-53.0) % MCV (80.0-100.0) fL MCH (25.0-35.0) pg MCHC (31.0-37.0) g/dL RDW (11.5-15.5) % Plt Count (150-450) k/uL MPV Neutrophils % % Lymphocytes % % Monocytes % % Eosinophils % % Basophils % % Neutrophils # (1.3-7.7) k/uL Lymphocytes # (1.0-4.8) k/uL Monocytes # (0-1.0) k/uL Eosinophils # (0-0.7) k/uL Basophils # (0-0.2) k/uL Sodium (137-145) mmol/L Potassium (3.5-5.1) mmol/L Chloride (98-107) mmol/L Carbon Dioxide (22-30) mmol/L Anion Gap mmol/L BUN (9-20) mg/dL Creatinine (0.66-1.25) mg/dL Est GFR (CKD-EPI)AfAm (>60 ml/min/1.73 sqM) Est GFR (CKD-EPI)NonAf (>60 ml/min/1.73 sqM) Glucose (74-99) mg/dL Plasma Lactic Acid Blayne (0.7-2.0) mmol/L Calcium (8.4-10.2) mg/dL Total Bilirubin (0.2-1.3) mg/dL AST (17-59) U/L ALT (4-49) U/L Alkaline Phosphatase (38-126) U/L Total Protein (6.3-8.2) g/dL Albumin (3.5-5.0) g/dL Amylase (30-110) U/L Lipase (23-300) U/L Urine Color Yellow Urine Appearance Clear (Clear) Urine pH 6.0 (5.0-8.0) Ur Specific Jay[place] 1.027 (1.001-1.035) Urine Protein 1+ H (Negative) Urine Glucose (UA) Trace H (Negative) Urine Ketones 1+ H (Negative) Urine Blood Trace H (Negative) Urine Nitrite Negative (Negative) Urine Bilirubin Negative (Negative) Urine Urobilinogen <2.0 (<2.0) mg/dL Ur Leukocyte Esterase Negative (Negative) Urine RBC 1 (0-5) /hpf Urine WBC 1 (0-5) /hpf Ur Squamous Epith Cells <1 (0-4) /hpf Urine Mucus Rare H (None) /hpf Influenza Type A (PCR) Not Detected (Not Detectd) Influenza Type B (PCR) Not Detected (Not Detectd) RSV (PCR) Not Detected (Not Detectd) SARS-CoV-2 (PCR) Not Detected (Not Detectd) - Radiology Data Radiology results: report reviewed, image reviewed Disposition Clinical Impression: Viral illness, Nausea Disposition: HOME SELF-CARE Condition: Stable Instructions (If sedation given, give patient instructions): Acute Nausea and Vomiting (ED) Additional Instructions: Continue to alternate [id number] ibuprofen and Tylenol for fever control. Follow-up with PCP. Return to the ER for any new or worsening concerns. Prescriptions: Ondansetron Odt [Zofran Odt] 4 mg PO Q8HR PRN #10 tab PRN Reason: Nausea Is patient prescribed a controlled substance at d/c from ED?: No Referrals: Tito Richter DO [Primary Care Provider] - 1-2 days Time of Disposition: 08:56
[2024-09-27] MEDS: SODIUM CHLORIDE 0.9% 1,000 ML IV STA (06:41)
[2024-09-27 06:45] LABS: ALT 33 U/L (4-49); AST 42 U/L (17-59); African American GFR (CKD) 52 (>60 ml/min/1.73 sqM); Albumin 4.3 g/dL (3.5-5.0); Alkaline Phosphatase 93 U/L (38-126); Amylase 71 U/L (30-110); Anion Gap 11 mmol/L; Blood Urea Nitrogen 34 mg/dL (9-20); Calcium 8.8 mg/dL (8.4-10.2); Carbon Dioxide 20 mmol/L (22-30); Chloride 103 mmol/L (98-107); Glucose 169 mg/dL (74-99); Lipase 141 U/L (23-300); Non-African American GFR(CKD) 45 (>60 ml/min/1.73 sqM); Potassium 3.9 mmol/L (3.5-5.1); Sodium 134 mmol/L (137-145); Total Bilirubin 0.8 mg/dL (0.2-1.3); Total Protein 7.7 g/dL (6.3-8.2)
[2024-09-27 06:59] LABS: Basophils % (A) 0 %; Eosinophils % (A) 0 %; HCT 45.6 % (39.0-53.0); HGB 15.1 gm/dL (13.0-17.5); Lymphocytes # (A) 0.2 k/uL (1.0-4.8); Lymphocytes % (A) 6 %; MCH 30.2 pg (25.0-35.0); MCHC 33.1 g/dL (31.0-37.0); MCV 91.3 fL (80.0-100.0); Mean Platelet Volume 8.8; Monocytes # (A) 0.3 k/uL (0-1.0); Monocytes % (A) 6 %; Neutrophils # (A) 3.7 k/uL (1.3-7.7); Neutrophils % (A) 86 %; RBC 4.99 m/uL (4.30-5.90); RDW 13.6 % (11.5-15.5); WBC 4.3 k/uL (3.8-10.6)
[2024-09-27 07:36] VITALS: RESP 14
--- NOTE | 2024-09-27 07:38 | XR ---
EXAMINATION TYPE: XR chest 2V DATE OF EXAM: 09/27/2024 6:51 AM COMPARISON: None. CLINICAL INDICATION: Male, 68 years old with history of fever, TECHNIQUE: Frontal and lateral views of the chest are obtained. FINDINGS: Senescent parenchymal change. Hyperinflation bilateral to the knee. There is no focal air space opacity, pleural effusion, or pneumothorax seen. The cardiac silhouette size is within normal limits. The osseous structures are intact. IMPRESSION: No acute cardiopulmonary process. [facility], , 09/27/2024 7:36 AM
[2024-09-27 08:07] LABS: Platelet Count 91 k/uL (150-450)
[2024-09-27 08:49] LABS: Appearance,Urine Clear (Clear); Bilirubin,Urine Negative (Negative); Blood,Urine Trace (Negative); Color,Urine Yellow; Glucose,Urine (UA) Trace (Negative); Ketones,Urine 1+ (Negative); Leukocyte Esterase,Urine Negative (Negative); Mucus,Urine Rare /hpf; Nitrite,Urine Negative (Negative); Protein,Urine 1+ (Negative); RBC,Urine 1 /hpf (0-5); Specific Gravity,Urine 1.027 (1.001-1.035); Squamous Epithelial Cell,Urine <1 /hpf (0-4); Urobilinogen,Urine <2.0 mg/dL (<2.0); WBC,Urine 1 /hpf (0-5)
[2024-09-27 09:08] VITALS: BP 107/65; PULSE 73; TEMP 98.5
[2024-09-27] MEDS: ONDANSETRON 4 MG ODT STARTER PACK 2 TAB BTL PO STA (09:18)
== END 2024-09-27 09:36 | disposition home or self-care (01) ==
LOC: EC 05:38
DX: B34.9 Viral infection, unspecified (principal)
CPT/HCPCS: 99285; 96374; 96361; 36415; 93005; 80053; 82150; 83605; 83690; 85025; 81001; 87636; 71046; J2405; S0119